=== PATIENT | female | born 1995 | race Caucasian/White ===

== ENCOUNTER 2019-05-12 08:02 | Outpatient (CLI) | payer OTHER, SELFPAY ==
--- NOTE | ~2019-05-12 | US_ITS ---
EXAMINATION: US venous doppler LE RT EXAM DATE: 05/12/2019 08:29 INDICATION: Right ankle edema, calf pain. TECHNIQUE: Multiple grayscale, color flow and Doppler images of the right lower extremity deep venous system were obtained and reviewed. There is no prior study for comparison. FINDINGS: The right common femoral, femoral and profunda veins demonstrate normal color flow, respira tory variation, augmentation and compressibility. Compressibility, color flow confirmed within the r ight popliteal, posterior tibial, peroneal, and greater saphenous veins. IMPRESSION: 1. No right lower extremity deep venous thrombosis. Reviewed, dictated and finalized at location A. 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
== END 2019-05-12 08:03 | disposition home or self-care (01) ==
PROVIDERS: PCP Family Medicine; Visit Provider Family Medicine
DX: M25.473 Effusion, unspecified ankle (principal); M79.669 Pain in unspecified lower leg
CPT/HCPCS: 93971

== ENCOUNTER 2021-09-15 10:01 | Outpatient (CLI) | payer OTHER, SELFPAY ==
--- NOTE | ~2021-09-15 | XR_ITS ---
EXAMINATION: XR hysterosalpingogram DATE: 09/15/2021 12:12 INDICATION: Infertility. TECHNIQUE: Fluoroscopy was performed by the radiologist during contrast infusion into the endometrial cavity of the uterus by the primary physician. Fluoroscopy exposure time was 0.1 minutes. The total number of images was 5. FINDINGS: The intrauterine cavity is normal in morphology. The fallopian tubes are normal in caliber. There is normal free intraperitoneal spillage of contrast bilaterally. IMPRESSION: 1. Normal hysterosalpingogram. Reviewed, dictated and finalized at location A.
[2021-09-15 11:01] LABS: Beta HCG Quantitative < 2.39 mIU/ML
== END 2021-09-15 10:02 | disposition home or self-care (01) ==
LOC: ANHIMG 10:04
PROVIDERS: PCP Family Medicine; Visit Provider Obstetrics & Gynecology Gynecology
DX: Z31.41 Encounter for fertility testing (principal)
CPT/HCPCS: 36415; 58340; 74740; 84702; Q9966

== ENCOUNTER → 2022-03-29 15:04 | Outpatient (CLI) | payer OTHER, SELFPAY ==
--- NOTE | ~2022-03-29 | US_ITS ---
Pelvic ultrasound. Clinical History: First trimester , uncertain dates Technique: Realtime transabdominal and transvaginal scanning of the pelvis was performed. Color flow Doppler and Doppler spectral analysis were performed. Findings: The uterus is anteverted, and contains an intrauterine gestation. [place]-rump length of 2.4 cm corresponds to an estimated gestational age of 9 weeks 1 day. heart rate is 178 bpm. The right ovary is not visualized. No significant right ovarian or adnexal mass is seen. The left ovary measures 3.5 x 3.9 x 3.2 cm. Small simple left ovarian cyst is seen. There is no evidence of free fluid in the cul de sac. Impression: Live intrauterine gestation with estimated gestational age of 9 weeks 1 day. heart rate is 178 bpm. Reviewed, dictated and finalized at [facility]. 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 Fe murray heart rate is 178 bpm.
== END ==
PROVIDERS: PCP Family Medicine; Visit Provider Obstetrics & Gynecology Gynecology
DX: Z36.87 Encounter for antenatal screening for uncertain dates (principal); Z3A.09 9 weeks gestation of pregnancy
CPT/HCPCS: 76801

== ENCOUNTER 2022-08-04 11:46 | Outpatient (CLI) | payer OTHER, SELFPAY ==
[2022-08-04 13:04] LABS: Hematocrit 35.7 % (37.0-47.0); Hemoglobin 12.1 g/dL (12.0-15.0)
[2022-08-04 13:29] LABS: Alanine Aminotransferase 17 U/L (6-35); Albumin Level 3.4 g/dL (3.5-5.1); Alkaline Phosphatase 87 U/L (38-126); Anion Gap 1 mmol/L (8-16); Aspartate Amino Transferase 19 U/L (14-36); Bilirubin,Total 0.3 mg/dL (0.2-1.3); Blood Urea Nitrogen 7 mg/dL (7-17); Calcium 8.6 mg/dL (8.4-10.2); Carbon Dioxide 26 mmol/L (22-30); Chloride 108 mmol/L (98-107); Estimated Glomerular Filt Rate > 60; Glucose 120 mg/dL (65-110); Glucose 1 Hour PP 50gm Dose 120 mg/dL; Potassium 3.8 mmol/L (3.4-5.0); Sodium 135 mmol/L (137-145)
[2022-08-04 14:01] LABS: HIV 1/2 Ab P24 Ag Result Negative (Negative)
[2022-08-05] MEDS: RHO(D) IMMUNE GLOBULIN 300 MCG/2 ML SYRINGE IM (09:45)
== END 2022-08-04 11:47 | disposition home or self-care (01) ==
PROVIDERS: PCP Family Medicine; Visit Provider Obstetrics & Gynecology Gynecology
DX: Z34.03 Encounter for supervision of normal first pregnancy, third trimester (principal); Z3A.00 Weeks of gestation of pregnancy not specified
CPT/HCPCS: 36415; 80053; 82306; 82947; 85014; 85018; 85461; 86703; 86850; 86900; 86901; 90384; 96372; G0432; J2790

== ENCOUNTER 2022-10-12 16:47 | Inpatient (IN) | payer OTHER, SELFPAY ==
[2022-10-12] VITALS (19 sets, daily range): BP systolic 111–135; BP diastolic 60–95; PULSE 84–107; BMI 38.2
[2022-10-12 18:08] LABS: Basophils Percent Auto 0.1 % (0.2-1.2); Eosinophils Absolute Auto 0.2 K/mm3 (0-0.3); Eosinophils Percent Auto 1.5 % (0-4.4); Hematocrit 34.5 % (37.0-47.0); Hemoglobin 10.9 g/dL (12.0-15.0); Immature Granulocyte Absolute 0.04 K/mm3 (0.00-0.031); Immature Granulocyte Percent A 0.4 % (0-0.5); Immature Platelet Fraction Pct 20.5 % (0.9-11.2); Lymphocytes Absolute Auto 2.18 K/mm3 (0.9-3.2); Lymphocytes Percent Auto 20.8 % (18.3-44.2); Mean Corpuscular HGB Conc 31.6 g/dl (32-36); Monocytes Absolute Auto 0.8 K/mm3 (0.1-0.6); Monocytes Percent Auto 7.5 % (2.6-8.5); Neutrophils Absolute Auto 7.3 K/mm3 (1.3-6.7); Neutrophils Percent Auto 69.7 % (45.5-73.1); Platelet Count Result 167 k/mm3 (150-375); Red Blood Count 4.54 M/mm3 (4.2-5.4); Red Cell Distribution Width 14.5 % (11.5-14.5); White Blood Count 10.5 K/mm3 (4.5-10.0)
[2022-10-12] MEDS: DINOPROSTONE 10 MG VAG INSERT VAGINAL (18:08)
--- NOTE | 2022-10-12 18:15 | LDADM ---
This patient, Stefanie Cortes, was admitted to Labor/Delivery/Recovery 106 on 10/12/22 at 16:47. Plans for labor, pain management and were discussed with patient. Patient/family oriented to hospital policies and general routines including ID bracelet, bed and alarms, visiting hours, pain management, procedures, bathroom and other care routines, personal items, smoking policy, room service/diet and guest tray routines, security routines, and visiting hours. Patient/Family are encouraged to report perceived risks to care and to ask questions if they do not understand what they are told or what they should do. See OBIX for further documentation.
[2022-10-12 18:17] LABS: Potassium 3.7 mmol/L (3.4-5.0)
[2022-10-12 18:27] LABS: Alanine Aminotransferase 17 U/L (6-35); Albumin Level 2.8 g/dL (3.5-5.1); Alkaline Phosphatase 172 U/L (38-126); Anion Gap 8 mmol/L (8-16); Aspartate Amino Transferase 30 U/L (14-36); Bilirubin,Total 0.3 mg/dL (0.2-1.3); Blood Urea Nitrogen 8 mg/dL (7-17); Calcium 8.5 mg/dL (8.4-10.2); Carbon Dioxide 21 mmol/L (22-30); Chloride 105 mmol/L (98-107); Estimated CRCL calculation 157 ml/min; Estimated Glomerular Filt Rate > 60; Glucose 120 mg/dL (65-110); Sodium 134 mmol/L (137-145); Uric Acid 3.6 mg/dL (2.5-7.5)
[2022-10-12 21:36] LABS: Amphetamine Screen Urine Negative (Negative); Barbiturate Screen Urine Negative (Negative); Benzodiazepines Screen Urine Negative (Negative); Cannabinoid Screen Urine Negative (Negative); Cocaine Screen Urine Negative (Negative); Methadone Screen Urine Negative (Negative); Opiate Screen Urine Negative (Negative); Phencyclidine Screen Urine Negative (Negative)
--- NOTE | 2022-10-12 21:42 | WPDANESEPP ---
Anes - Eval Pre Procedure Procedure: labor epidural Date/Time: 10/12/22 21:42 Surgeon: bo Preop Diagnosis: pain during labor Pre Op Diagnosis: Induction of Labor Patient Data Age: 27 Gender: F Height: 1.6 m Weight: 98 kg Last Vital Signs Pulse 100 10/12/22 21:30 BP 135/95 H 10/12/22 21:30 O2 Del Method Room Air 10/12/22 18:14 Allergies Allergy/AdvReac Type Severity Reaction Status Date / Time No Known Allergies Allergy Verified 08/04/22 11:18 Home Medications Medication Instructions Recorded Confirmed Type Lactobacillus acidophilus 1 1,000 mmu cells PO DAILY 05/07/19 10/12/22 History billion cell capsule (Probiotic Gold Acidophilus) omega-3 fatty acids 1,000 mg 1,000 mg PO DAILY 05/07/19 10/12/22 History capsule (Fish Oil Concentrate) vits 75-iron 28 mg-folic 1 pkg PO DAILY 05/07/19 10/12/22 History acid 800 mcg-omega-3 oral combo pack (One Daily ) tacrolimus 0.5 mg capsule, 0.5 mg/kg PO Q12H 05/07/19 10/12/22 History immediate-release tacrolimus 1 mg capsule, 2 mg PO Q12H 05/07/19 10/12/22 History immediate-release aspirin 81 mg tablet 81 mg PO DAILY 10/06/22 10/12/22 History cetirizine 10 mg tablet (Zyrtec) 10 mg PO DAILY 10/06/22 10/06/22 History cholecalciferol (vitamin D3) 50 50 mcg PO DAILY 10/06/22 10/06/22 History mcg (2,000 unit) tablet docusate sodium 100 mg capsule 100 mg PO DAILY 10/12/22 10/12/22 History (Colace) Laboratory Tests 10/12/22 10/12/22 10/12/22 17:56 17:56 20:58 WBC 10.5 H K/mm3 (4.5-10.0) RBC 4.54 M/mm3 (4.2-5.4) Hgb 10.9 L g/dL (12.0-15.0) Hct 34.5 L % (37.0-47.0) MCV 76.0 L fl (80-100) MCH 24.0 L pg (26-34) MCHC 31.6 L g/dl (32-36) RDW 14.5 % (11.5-14.5) Plt Count 167 k/mm3 (150-375) MPV TNP Immature Gran % (Auto) 0.4 % (0-0.5) Neut % (Auto) 69.7 % (45.5-73.1) Lymph % (Auto) 20.8 % (18.3-44.2) [place] % (Auto) 7.5 % (2.6-8.5) Eos % (Auto) 1.5 % (0-4.4) Baso % (Auto) 0.1 L % (0.2-1.2) Lymph # (Auto) 2.18 K/mm3 (0.9-3.2) [place] # (Auto) 0.8 H K/mm3 (0.1-0.6) Eos # (Auto) 0.2 K/mm3 (0-0.3) Baso # (Auto) 0.0 K/mm3 (0.0-0.1) Abs Immat Gran (auto) 0.04 H K/mm3 (0.00-0.031) Absolute Neuts (auto) 7.3 H K/mm3 (1.3-6.7) Absolute Nucleated RBC 0.0 K/mm3 (0.0-0.012) Nucleated RBC % 0.0 % (0.0-0.2) % Immature Plt Fraction 20.5 H % (0.9-11.2) Sodium 134 L mmol/L (137-145) Potassium 3.7 mmol/L (3.4-5.0) Chloride 105 mmol/L (98-107) Carbon Dioxide 21 L mmol/L (22-30) Anion Gap 8 mmol/L (8-16) BUN 8 mg/dL (7-17) Creatinine 0.50 L mg/dL (0.7-1.0) Estim Creat Clear Calc 157 ml/min Estimated GFR > 60 (59 - ) Glucose 120 H mg/dL (65-110) Uric Acid Cancelled 3.6 mg/dL (2.5-7.5) Calcium 8.5 mg/dL (8.4-10.2) Total Bilirubin 0.3 mg/dL (0.2-1.3) AST 30 U/L (14-36) ALT 17 U/L (6-35) Alkaline Phosphatase 172 H U/L (38-126) Total Protein 6.0 L g/dL (6.3-8.2) Albumin 2.8 L g/dL (3.5-5.1) Urine Opiates Screen Negative (Negative) Urine Methadone Screen Negative (Negative) Ur Barbiturates Screen Negative (Negative) Ur Phencyclidine Scrn Negative (Negative) Ur Amphetamine Screen Negative (Negative) U Benzodiazepines Scrn Negative (Negative) Urine Cocaine Screen Negative (Negative) U Cannabinoids Screen Negative (Negative) RPR Pending Blood Type O Negative Antibody Screen Positive Antibody [place]
[2022-10-13] VITALS (239 sets, daily range): BP systolic 101–144; BP diastolic 55–96; PULSE 73–136; TEMP 36.2–37.3; O2SAT 95–100
[2022-10-13] MEDS: LACTATED RINGERS 1,000 ML 125 ML IV CONT ×2 (06:40→09:30)
[2022-10-13] MEDS: OXYTOCIN 30 UNITS/NS 500 ML 30 UNITS/500 ML BAG 6 UNITS IV CONT (06:40)
--- NOTE | 2022-10-13 07:45 | WPDOBADMIT ---
Obstetrics - Admit Note Admission Note: record reviewed. No pertinent additions to the history and/or any subsequent changes in the physical findings that are not consistent with the expected course of the were found. Additions to the history and/or subsequent changes in the physical findings follow. Here for MIL at 37 wks for preeclampsia. Cervadil overnight. Cervix now 1-2/70/-2 anterior and soft, AROM with clear fluid. FHTs cat. I. Pitocin as needed.
[2022-10-13 15:51] LABS: Rapid Plasma Reagin Non-Reactive (NonReactive)
[2022-10-13] MEDS: CALCIUM CARBONATE (TUMS) 500 MG (200 MG ELEMENTAL) PO (16:19)
[2022-10-13] MEDS: ONDANSETRON INJ 4 MG/2 ML VIAL IV PUSH (21:00)
[2022-10-14] VITALS (27 sets, daily range): BP systolic 104–141; BP diastolic 59–93; PULSE 91–139; RESP 16–18; TEMP 36.2–38.3; O2SAT 96–98
[2022-10-14] MEDS: ACETAMINOPHEN 500 MG TABLET 1000 MG (00:17)
[2022-10-14] MEDS: LACTATED RINGERS 1,000 ML 125 ML IV CONT (00:24)
[2022-10-14] MEDS: AMPICILLIN 2 GM/NS 100 ML 2 GM/100 ML BAG IVPB (01:07)
[2022-10-14] MEDS: GENTAMICIN SULFATE INJ 355 MG in DEXTROSE 5% 100 ML 108.88 MG IVPB (01:39)
[2022-10-14] MEDS: OXYTOCIN 30 UNITS/NS 500 ML 30 UNITS/500 ML BAG 6 UNITS IV CONT (03:31)
[2022-10-14] MEDS: AMPICILLIN 1 GM/NS 50 ML 1 GM/50 ML BAG IVPB (05:02)
--- NOTE | 2022-10-14 05:47 | PM.OBPRVD ---
OB - Delivery Note Procedure Delivery date: 10/14/22 Procedure: Events: Preeclampsia w/o severe features Induction method: AROM, Per Pitocin Protocol and Per Cervidil Protocol Delivery monitor: External FHT and Internal Uterine Route of delivery: Laceration Description: Periurethral (supraurethral) and Perineal - 2nd Degree Delivery repair: vicryl (3-0) Specimen: Yes (placenta) Quantitative Blood Loss (ml): 300 Anesthesia type: Epidural Disposition: Floor [place] Baby Date of : 10/14/22 Weeks of gestation at delivery: 37 gender: Female presentation: vertex position: Right Occiput Anterior Placenta delivery description: Spontaneous Cord Vessel Description: 3 Vessels, Nuchal Cord and Delayed Cord Clamping score one minute: 9 score five minutes: 10
--- NOTE | 2022-10-14 05:49 | PM.OBDSVD ---
DS: Admitting Diagnosis Discharge Date 10/16/22 Admitting Diagnosis IUP 37 wks for MIL Preeclampsia DS: Discharge Diagnosis Discharge Diagnosis (1) Preeclampsia: Code(s): O14.90 - Unspecified pre-eclampsia, unspecified trimester Status: Acute (2) (normal spontaneous vaginal delivery): Code(s): O80 - Encounter for full-term uncomplicated delivery Status: Acute (3) Liver transplant recipient: Code(s): Z94.4 - Liver transplant status Status: Acute OB - DS: Summary OB Procedures : NST, PIH Mgmt and Ultrasound OB Procedures Intrapartum: Spontaneous Vag Delivery OB Procedures: : None Peripartum Data Delivery Method: Natural Vaginal Laceration Description: Periurethral (supraurethral) and Perineal - 2nd Degree complications: none Status at Discharge Functional status at discharge: independent ambulation Overall status at discharge: patient is progressing back to baseline Time Spent with Patient Time attestation: Total time spent providing and/or coordinating discharge services: DS: Data Data Completed and Pending Pending studies at discharge: Pending at discharge 10/14/22 05:23 Surgical [PTH] Routine Labs on day of discharge: Labs from last 24 hours 10/12/22 17:56 RPR Non-reactive Discharge Plan Discharge Attending physician on discharge: Stephany Lott Discharging Clinician: Stephany Lott Anticipated Discharge Date/Time: 10/16/22 05:50 Patient Disposition: Home, Self-Care Activity: may shower and pelvic rest Diet: regular Patient Instructions: Antibiotic Form Stand Alone Forms: General Discharge Information Follow-up/Referrals: Stephany Lott MD [Physician] - 1 Week (and 6 wk) Discharge Medications: Continued tacrolimus 1 mg capsule 2 mg PO Q12H tacrolimus 0.5 mg capsule 0.5 mg/kg PO Q12H Rx Instructions: take 1 cap by mouth in addition to the 2 caps of 1mg to equal 2.5mg twice daily Discontinued Adult Low Dose Aspirin 81 mg Tablet 81 mg PO DAILY No Action Probiotic Gold Acidophilus 1 billion cell capsule 1,000 mmu cells PO DAILY Rx Instructions: administer with a meal One Daily 28 mg iron- 800 mcg combo pack 1 pkg PO DAILY omega-3 fatty acids [Fish Oil Concentrate] 1,000 mg capsule 1,000 mg PO DAILY cetirizine [Zyrtec] 10 mg Tablet 10 mg PO DAILY cholecalciferol (vitamin D3) 50 mcg (2,000 unit) Tablet 50 mcg PO DAILY docusate sodium [Colace] 100 mg Capsule 100 mg PO DAILY Date of admission: 10/12/22 16:47 Primary Care Provider: Dimitri Almonte Admitting Provider: Stephany Lott Attending physician on admission: Stephany Lott Condition: Stable
[2022-10-14] MEDS: OXYTOCIN 30 UNITS/NS 500 ML 30 UNITS/500 ML BAG 125 UNITS IV CONT (05:56)
[2022-10-14] MEDS: WITCH HAZEL 40 PADS 1 PAD TOPICAL (07:50)
[2022-10-14] MEDS: BENZOCAINE 20% AER SPR (*SP) 56 GM CAN 1 SPRAY TOPICAL (07:50)
--- NOTE | 2022-10-14 08:10 | OBPPTRN ---
Patient transferred to post room # via wheelchair. Support person present. Oriented to unit, room, information board, rooming in, admission packet and security measures. Patient verbalizes understanding.
[2022-10-15 05:29] LABS: Hematocrit 30.5 % (37.0-47.0); Hemoglobin 9.5 g/dL (12.0-15.0)
--- NOTE | 2022-10-15 07:18 | P.PNOB_ITS ---
OB - PN: Subj Subjective Date/time seen: 10/15/22 07:18 Patient comments: no complaints, pain well controlled and tolerating diet [place] feeding status: exclusively breast feeding Narrative: patient doing well this AM. No complaints. Pain is well controlled. She reports minimal bleeding. She is ambulating and voiding without difficulty. She is tolerating PO. She denies N/V, fever, chills. OB - PN: Obj Data Labs 10/15/22 04:49 10/12/22 17:56 Labs: Laboratory Results - last 24 hr 10/15/22 04:49 Hgb 9.5 L Hct 30.5 L Blood Type O Negative Antibody Screen TNP OB - PN A/P Plan day: 1 Plan: routine care Comments: patient doing well H/H , will supplement with iron BP mild range, continue to monitor continue routine care Time Spent With Patient Time: Total time spent is greater than 50% in coordination of care (as documented) at patient's floor/unit and/or counseling patient: Time with patient: less than 15 minutes Review of Systems Review of Systems: All systems reviewed & are unremarkable except as noted in HPI and below Exam Const: General: comfortable and no acute distress Resp: Effort & Inspection: normal respiratory effort Cardio: Rate: regular rate GI: GI Palp: Yes Soft to palpation and No Tenderness to palpation present (GI) Auscultation: normal bowel sounds Other: fundus firm and below umbilicus. Psych: Affect: normal affect
[2022-10-15 08:15] VITALS: BP 122/82; PULSE 92; RESP 20; TEMP 36.3; O2SAT 100
[2022-10-15] MEDS: POLYSACCHARIDE IRON COMPLEX 150 MG CAPSULE PO ×2 (08:41→16:27)
[2022-10-15] MEDS: DOCUSATE SODIUM 100 MG CAPSULE PO ×2 (08:41→16:27)
[2022-10-15 16:00] VITALS: BP 121/84; PULSE 85; RESP 18; TEMP 36.8; O2SAT 98
[2022-10-15] MEDS: RHO(D) IMMUNE GLOBULIN 300 MCG/2 ML SYRINGE IM (16:28)
[2022-10-15 20:00] VITALS: BP 117/81; PULSE 98; RESP 18; TEMP 36.4; O2SAT 99
[2022-10-16] VITALS: BP 132/74
[2022-10-16 04:00] VITALS: BP 127/79
[2022-10-16] MEDS: POLYSACCHARIDE IRON COMPLEX 150 MG CAPSULE PO ×2 (08:13→16:44)
[2022-10-16 08:25] VITALS: BP 119/89; PULSE 91; RESP 16; TEMP 37.1; O2SAT 98
--- NOTE | 2022-10-16 08:30 | PC.NURSE ---
Patient refused morning vitamin and TUMS ordered. Patient states that she is taking her vitamins brought from home and doesnt need the TUMS at this time.
--- NOTE | 2022-10-16 09:38 | PM.OBPNVD ---
OB - PN: Subj Subjective Date/time seen: 10/16/22 09:38 Patient comments: no complaints and other ( no PIH sx) baby status: doing well feeding status: breast and bottle feeding OB - PN: Obj Data Labs 10/15/22 04:49 10/12/22 17:56 Labs: Laboratory Results - last 24 hr 10/15/22 04:49 Blood Type O Negative Antibody Screen TNP Screen Negative Baby's Blood Type O pos Baby's ZACHARIAH Negative Doses of RhIg Required 1 OB - PN A/P Assessment and Plan (1) Preeclampsia: Code(s): O14.90 - Unspecified pre-eclampsia, unspecified trimester Status: Acute Assessment and Plan: blood pressures in the normal range, good diuresis, no symptoms Plan day: 2 Plan: routine care, discharge home, follow up 6 weeks ( and 1 week for a blood pressure check) and other ( plans condoms for control) Time Spent With Patient Time: Total time spent is greater than 50% in coordination of care (as documented) at patient's floor/unit and/or counseling patient: Exam : Bimanual exam- vagina & uterus: other (Uterus firm, nt @U)
--- NOTE | 2022-10-16 14:05 | PC.NURSE ---
[id number] Re-introductions were made as we previously met during class. Mother led conversation with her experience with feeding baby so far. Mother works well with her with encouragement. Reviewed working with , supporting breast and how to protect the nipples with an optimal deep latch, good positioning, and good hand washing. Encouraged the benefits of skin to skin, responding to feeding cues, frequencies of feeding 8-12 times in 24 hours (approximately 2-3 hours), duration of feedings, milk production, intake/output feeding sheet and signs of adequate intake encouraging swallowing at the breast. Reviewed positioning and alignment, supporting breast, off-centered (asymmetrical latch) and leading with the chin with big, open, wide gape. Infant latched optimally to the right breast in cross cradle position. Education given to mother of how to visualize suck/swallow and none were seen at this time. Reviewed the production of milk and we anticipate supplementation until the full milk has transitioned. has an elevated bilirubin and 10% weight loss that required a Doctor's order to supplement with formula. We reviewed paced bottle feeding as well and parents are practicing the method when supplementing. was able to maintain latch without discomfort to mother. Nipple care reviewed with optimal latch, good positioning and using clean hands when feeding her infant and touching her breast. Resources used to facilitate learning were used from the mom and baby guide. Parents voiced understanding of the education shared, to call for assistance if the infant does not latch or if there is discomfort with . Reported to the Primary RN.
[2022-10-16 18:30] VITALS: BP 133/90; PULSE 95; RESP 16; TEMP 36.9; O2SAT 98
[2022-10-17 08:27] VITALS: BP 121/69; PULSE 94; RESP 18; TEMP 36.8
== END 2022-10-16 19:35 | disposition home or self-care (01) | DRG 806 ==
LOC: ANHLDR 10-14 05:56 → ANHOB2 10-14 08:13
PROVIDERS: Admitting Provider Obstetrics & Gynecology Gynecology; PCP Family Medicine; Visit Provider Obstetrics & Gynecology Gynecology
DX: O75.2 Pyrexia during labor, not elsewhere classified (principal); Z94.4 Liver transplant status; Z37.0 Single live birth; O14.04 Mild to moderate pre-eclampsia, complicating childbirth; O70.1 Second degree perineal laceration during delivery; O69.81X0 Labor and delivery complicated by cord around neck, without compression, not applicable or unspecified; Z3A.37 37 weeks gestation of pregnancy; O43.123 Velamentous insertion of umbilical cord, third trimester
CPT/HCPCS: 36415; 80053; 80307; 84550; 85014; 85018; 85025; 85055; 85461; 86592; 86850; 86880; 86900; 86901; 88307; 90384; A9270; J0290; J1580; J2405; J2590; J2790; J2795; J7120

== ENCOUNTER 2024-12-12 12:44 | Outpatient (RCR) | payer OTHER, SELFPAY ==
[2024-12-12 14:10] LABS: Hematocrit 36.6 % (37.0-47.0); Hemoglobin 12.0 g/dL (12.0-15.0)
[2024-12-12 14:38] LABS: Glucose 1 Hour PP 50gm Dose 102 mg/dL
[2024-12-12 15:00] LABS: Syphilis IgG/IgM Antibody Non-Reactive (Nonreactive)
[2024-12-12 15:13] LABS: HIV 1/2 Ab P24 Ag Result Negative (Negative)
[2024-12-13] MEDS: RHO(D) IMMUNE GLOBULIN 300 MCG/2 ML SYRINGE IM (17:51)
== END 2025-03-12 23:59 | disposition home or self-care (01) ==
LOC: ANHLAB 12:44
PROVIDERS: PCP Family Medicine; Visit Provider Obstetrics & Gynecology
DX: Z11.4 Encounter for screening for human immunodeficiency virus [HIV] (principal); Z11.3 Encounter for screening for infections with a predominantly sexual mode of transmission; Z29.13 Encounter for prophylactic Rho(D) immune globulin; O36.0190 Maternal care for anti-D [Rh] antibodies, unspecified trimester, not applicable or unspecified; Z3A.00 Weeks of gestation of pregnancy not specified
CPT/HCPCS: 36415; 82947; 85014; 85018; 85461; 86593; 86703; 86850; 86900; 86901; 90384; 96372; G0432; J2790

== ENCOUNTER 2025-03-16 05:02 | Inpatient (IN) | payer OTHER, SELFPAY ==
[2025-03-16] VITALS (177 sets, daily range): BP systolic 86–135; BP diastolic 40–95; PULSE 29–163; RESP 16; TEMP 36.1–36.6; O2SAT 84–100; BMI 36.7
--- OUTSIDE RECORDS SUMMARY | 2025-03-16 05:06 | XMS_ITS | Continuity of Care Document ---
Author Organization [facility], [facility] [address] [place] [address] Care Team Providers Care Security Operations Manager Name Role Phone MADRID, BRODERICK Primary Care Provider Assessment No assessment recorded. Plan of Treatment Reminders Order Date Submit Date Provider Last Modified By Organization Details Last Modified Time Details Appointments INDUCTION 2024 05:00A Elieser DELCID MD Not available Not available Not available Lab None recorded. Referral None recorded. Procedures None recorded. Surgeries None recorded. Imaging None recorded. Medication Orders None recorded. Patient TargetsNo targets recorded. Patient InstructionsNo instructions recorded. Reason for Referral None Reported. Results Created Date Observation Date Name Description Value Unit Range Abnormal Flag Note LastModifiedBy Organization Detail LastModifiedTime 09/09/19 25 09/08/2024 [UNIT Y] BLAINE ER SCREE N sickle cell disease/beta -thalassemia /hemoglobino pathies carrier screen NEGATI VE normal Not Available [facility] [address], [place], [address], 09/08/2024 22:51:39 09/09/19 25 09/08/2024 [UNIT Y] BLAINE ER SCREE N alpha-thalas semia carrier screen NEGATI VE normal Not Available [facility] [address], [place], [address], 09/08/2024 22:51:39 09/09/19 25 09/08/2024 [UNIT Y] BLAINE ER SCREE N cystic fibrosis carrier screen NEGATI VE normal Not Available [facility] [address], [place], [address], 09/08/2024 22:51:39 09/09/19 25 09/08/2024 [UNIT Y] BLAINE [place] spinal muscular atrophy carrier screen NEGATI VE 3 SMN1 copies , SNP not presen t normal Not Available [facility] [address], [place], [address], 09/08/2024 22:51:39 09/09/19 25 09/08/2024 [UNIT Y] BLAINE [place] for detailed report, see pdf See PDF normal Not Available [facility] [address], [place], [address], 09/08/2024 22:51:39 09/13/19 25 09/12/2024 [UNIT Y] ANEUP LOIDY NIPT redraw requested? No normal Not Available [facility] [address], [place], [address], 09/12/2024 00:04:22 09/13/19 25 09/12/2024 [UNIT Y] ANEUP LOIDY NIPT fraction 9.1% normal Not Available [facility] [address], [place], [address], 09/12/2024 00:04:22 09/13/19 25 09/12/2024 [UNIT Y] ANEUP LOIDY NIPT 22Q11.2 microdeletio n LOW RISK <1 in 10,000 normal Not Available [facility] [address], [place], [address], 09/12/2024 00:04:22 09/13/19 25 09/12/2024 [UNIT Y] ANEUP LOIDY NIPT nipt comment abnormal NIPT was unabl e to deter mine sex. In addit ion, monos ignacio X and sex chrom osome aneup loidy canno t be exclu ded for this sampl e. Prena murray diagn osis via [facility] or [facility] sis can be consi dered for monos ignacio X and sex chrom osome aneup loidy . Not Available [facility] [address], [place], [address], 09/12/2024 00:04:22 09/13/19 25 09/12/2024 [UNIT Y] ANEUP LOIDY NIPT sex chromosome aneuploidy NO CALL abnormal Not Available [facility] [address], [place], [address], 09/12/2024 00:04:22 09/13/19 25 09/12/2024 [UNIT Y] ANEUP LOIDY NIPT monosomy X NO CALL abnormal Not Available [facility] [address], [place], [address], 09/12/2024 00:04:22 09/13/19 25 09/12/2024 [UNIT Y] ANEUP LOIDY NIPT trisomy 13 LOW RISK <1 in 10,000 normal Not Available [facility] [address], [place], [address], 09/12/2024 00:04:22 09/13/19 25 09/12/2024 [UNIT Y] ANEUP LOIDY NIPT trisomy 18 LOW RISK <1 in 10,000 normal Not Available [facility] [address], [place], [address], 09/12/2024 00:04:22 09/13/19 25 09/12/2024 [UNIT Y] ANEUP LOIDY NIPT trisomy 21 LOW RISK <1 in 10,000 normal Not Available [facility] [address], [place], [address], 09/12/2024 00:04:22 09/13/19 25 09/12/2024 [UNIT Y] ANEUP LOIDY NIPT sex N/A abnormal Not Available [facility] [address], [place], [address], 09/12/2024 00:04:22 09/13/19 25 09/12/2024 [UNIT Y] ANEUP LOIDY NIPT gestation SINGLE TON normal Not Available [facility] [address], [place], [address], 09/12/2024 00:04:22 09/13/19 25 09/12/2024 [UNIT Y] ANEUP LOIDY NIPT for detailed report, see pdf See PDF normal Not Available [facility] [address], [place], [address], 09/12/2024 00:04:22 09/02/19 25 09/01/2024 CBC W/DIF F WBC 11.5 10'3/ uL 3.5-10 .5 high Not Available [facility] (Lab) [address] , [place], [address], 09/02/2024 13:48:30 09/02/19 25 09/01/2024 CBC W/DIF F RBC 4.99 10'6/ uL (based on docume nted legal sex) 3.80-5 .20 Not Available [facility] (Lab) [address] , [place], [address], 09/02/2024 13:48:30 09/02/19 25 09/01/2024 CBC W/DIF F HGB 14.4 g/dL (based on docume nted legal sex) 11.6-1 5.4 Not Available [facility] (Lab) [address] , [place], [address], 09/02/2024 13:48:30 09/02/19 25 09/01/2024 CBC W/DIF F HCT 42.5 % (based on docume nted legal sex) 34.0-4 5.0 Not Available [facility] (Lab) [address], [place], [address], 09/02/2024 13:48:30 09/02/19 25 09/01/2024 CBC W/DIF F MCV 85.2 fL 80.0-9 9.0 Not Available [facility] (Lab) [address] [facility], [place], [address], 09/02/2024 13:48:30 09/02/19 25 09/01/2024 CBC W/DIF F MCH 28.9 pg 27.0-3 4.0 Not Available [facility] (Lab) [address] [facility], [place], [address], 09/02/2024 13:48:30 09/02/19 25 09/01/2024 CBC W/DIF F MCHC 33.9 g/dL 32.0-3 5.5 Not Available [facility] (Lab) [address] [facility], [place], [address], 09/02/2024 13:48:30 09/02/19 25 09/01/2024 CBC W/DIF F RDW 13.2 % 11.0-1 5.0 Not Available [facility] (Lab) [address] [facility], [place], [address], 09/02/2024 13:48:30 09/02/19 25 09/01/2024 CBC W/DIF F plt 208 10'3/ uL 150-40 0 Not Available [facility] (Lab) [address] [facility], [place], [address], 09/02/2024 13:48:30 09/02/19 25 09/01/2024 CBC W/DIF F MPV 12.3 fL 8.8-12 .1 high Not Available [facility] (Lab) [address] [facility], [place], [address], 09/02/2024 13:48:30 09/02/19 25 09/01/2024 CBC W/DIF F NRBC's 0.0 % 0.0 Not Available [facility] (Lab) [address] [place], [address], 09/02/2024 13:48:30 09/02/19 25 09/01/2024 CBC W/DIF F absolute NRBCs 0.0 10'3/ uL no refere nce range establ ished Not Available [facility] (Lab) [address] [facility], [place], [address], 09/02/2024 13:48:30 09/02/19 25 09/01/2024 CBC W/DIF F neutrophils 70.5 % 34.0-7 3.0 Not Available [facility] (Lab) [address] [facility], [place], [address], 09/02/2024 13:48:30 09/02/19 25 09/01/2024 CBC W/DIF F lymphocytes 21.9 % 15.0-5 0.0 Not Available [facility] (Lab) [address] [facility], [place], [address], 09/02/2024 13:48:30 09/02/19 25 09/01/2024 CBC W/DIF F monocytes 5.8 % 1.0-15 .0 Not Available [facility] (Lab) [address] [facility], [place], [address], 09/02/2024 13:48:30 09/02/19 25 09/01/2024 CBC W/DIF F eosinophils 1.3 % 0.0-8. 0 Not Available [facility] (Lab) [address] [place], [address], 09/02/2024 13:48:30 09/02/19 25 09/01/2024 CBC W/DIF F basophils 0.2 % 0.0-2. 0 Not Available [facility] (Lab) [address] [place], [address], 09/02/2024 13:48:30 09/02/19 25 09/01/2024 CBC W/DIF F immature granulocytes 0.3 % no define d refere nce range Immat ure Granu locyt es (IG) repre sents autom ated enume ratio n of Metam yeloc ytes, Myelo cytes and Promy elocy kim when IG is < 5%. Blast s are not inclu ded in IG and repor edouard separ ately if prese nt. Not Available [facility] (Lab) [address] [facility], [place], [address], 09/02/2024 13:48:30 09/02/19 25 09/01/2024 CBC W/DIF F absolute neutrophils 8.1 10'3/ uL 1.5-8. 0 high Not Available [facility] (Lab) [address] [facility], [place], [address], 09/02/2024 13:48:30 09/02/19 25 09/01/2024 CBC W/DIF F absolute lymphocytes 2.5 10'3/ uL 1.0-4. 0 Not Available [facility] (Lab) [address] [facility], [place], [address], 09/02/2024 13:48:30 09/02/19 25 09/01/2024 CBC W/DIF F absolute monocytes 0.7 10'3/ uL 0.2-1. 0 Not Available [facility] (Lab) [address] [facility], [place], [address], 09/02/2024 13:48:30 09/02/19 25 09/01/2024 CBC W/DIF F absolute eosinophils 0.2 10'3/ uL 0.0-0. 6 Not Available [facility] (Lab) [address] [facility], [place], [address], 09/02/2024 13:48:30 09/02/19 25 09/01/2024 CBC W/DIF F absolute basophils 0.0 10'3/ uL 0.0-0. 3 Not Available [facility] (Lab) [address] [facility], [place], [address], 09/02/2024 13:48:30 09/02/19 25 09/01/2024 CBC W/DIF F absolute immature granulocytes 0.0 10'3/ uL 0.00-0 .10 Refer ence range s for nonbi nary/ inter sex or unspe cifie d gende r patie nts have not been estab lishe d. Felisha zuriat refer to the guidoo wing table for range s estab lishe d for cisge nder patie nts and evalu ate in the clini john miracle xt of the indiv idual patie nt: https ://la benand book. nm.or g/gen derx Not Available [facility] (Lab) [address] [facility], [place], [address], 09/02/2024 13:48:30 09/02/19 25 09/01/2024 TYPE/ RH/SC REEN ABO/Rh type O NEG Not Available [facility] (Lab) [address] [facility], [place], [address], 09/02/2024 13:48:30 09/02/19 25 09/01/2024 TYPE/ RH/SC REEN antibody screen NEG Not Available [facility] (Lab) [address] [facility], [place], [address], 09/02/2024 13:48:30 09/02/19 25 09/01/2024 TYPE/ RH/SC REEN exp date 2024 23:59 Not Available [facility] (Lab) [address] [place], [address], 09/02/2024 13:48:30 09/02/1909/01/2024 HIV 1/2 ANTIG EN/AN TIBOD Y, REFLE X CONFI RMATI ON HIV antigen/anti body Nonrea ctive nonrea ctive HIV-1 antig en and HIV-1 /HIV- 2 antib odies were not detec edouard. No labor atory evide nce of HIV infec tion. Not Available [facility] (Lab) [address] [facility], [place], [address], 09/02/2024 13:48:31 09/02/19 25 09/01/2024 HEPAT ITIS B SURFA CE ANTIG EN hepatitis B surface antigen Non-re active non-re active This assay was perfo rmed using [employer] ratio n reage nts and test kits. Value s obtai blaine with other assay metho ds or kits canno t be used inter stover eably . Not Available [facility] (Lab) [address] [facility], [place], [address], 09/02/2024 13:48:31 09/02/19 25 09/01/2024 HEPAT ITIS C ANTIB MARV SCREE N, REFLE X TO CONFI RMATI ON hepatitis C antibody Non-re active non-re active Antib odies to HCV Not Detec edouard, does not exclu de the possi bilit y of expos ure to HCV. Not Available [facility] (Lab) [address] [facility], [place], [address], 09/02/2024 13:48:31 09/02/19 25 09/01/2024 RUBEL LA IGG ANTIB MARV, QUANT rubella antibodies, IgG Reacti ve reacti ve Not Available [facility] (Lab) [address] [place], [address], 09/02/2024 13:48:32 09/02/19 25 09/01/2024 RUBEL LA IGG ANTIB MRAV, QUANT rubella antibodies, IgG quant 12.2 IU/mL >=10 Non-r eacti ve (Non- Immun e) <10 IU/mL React nkechi (Immu ne) > or = 10 IU/mL Not Available [facility] (Lab) [address] [place], [address], 09/02/2024 13:48:32 09/02/19 25 09/01/2024 RPR SCREE N, REFLE X TITER /CONF IRMAT ION RPR qualitative Nonrea ctive nonrea ctive Not Available [facility] (Lab) [address] [place], [address], 09/02/2024 13:48:32 09/02/19 25 09/01/2024 HEMOG LOBIN A1C hemoglobin A1C 4.6 % 4.0-5. 6 The Ameri can [employer] kim [employer] iatio n recom mends that a prima ry goal of thera py shoul d be a HBA1C of < 7% and that physi cians shoul d reeva luate the treat ment regim en in patie nts with HBA1C value s consi stent ly > 8%. <5.7% Sara l 5.7 - 6.4% Incre ased risk for diabe kim >=6.5 % Diagn ostic of diabe kim <7.0% Goal of thera py >8.0% Actio n sugge sted Not Available [facility] (Lab) [address], [place], [address], 09/02/2024 13:48:32 09/02/1909/01/2024 CULTU RE: URINE result report SEE RESULT S BELOW Test: Cultu re: Urine Speci men Sourc e: Urine Voide d Speci men Type: Urine Speci men Date: 025 1116 Resul t Date: 2024 Resul t Statu s: Final resul t Abnor mal: No Resul ting Lab: [facility] [address] [facility] [address] Tel: CULTU RE ----- ----- ----- --- No growt h in 1 day (dete ction level of 10,00 0 colon ies / ml.) Not Available [facility] (Lab) [address], [place], [address], 09/02/2024 21:37:00 09/02/19 25 09/01/2024 drug scree n, urine Amphetamines : negati ve Not Available [facility] [address], [place], [address], 09/01/2024 11:12:32 09/02/19 25 09/01/2024 drug scree n, urine Cannabinoids : negati ve Not Available [facility] [address], [place], [address], 09/01/2024 11:12:32 09/02/19 25 09/01/2024 drug scree n, urine Cocaine: negati ve Not Available [facility] [address], [place], [address], 09/01/2024 11:12:32 09/02/19 25 09/01/2024 drug scree n, urine Opiates: negati ve Not Available [facility] [address], [place], [address], 09/01/2024 11:12:32 09/02/19 25 09/01/2024 drug scree n, urine Phenocyclidi ne: negati ve Not Available [facility] [address], [place], [address], 09/01/2024 11:12:32 09/02/19 25 09/01/2024 drug scree n, urine Barbiturates : negati ve Not Available [facility] [address], [place], [address], 09/01/2024 11:12:32 09/02/19 25 09/01/2024 drug scree n, urine Benzodiazepi loan: negati ve Not Available [facility] [address], [place], [address], 09/01/2024 11:12:32 09/02/19 25 09/01/2024 drug scree n, urine Ethanol: negati ve Not Available [facility] [address], [place], [address], 09/01/2024 11:12:32 09/02/19 25 09/01/2024 drug scree n, urine Hallucinogen s: negati ve Not Available [facility] [address], [place], [address], 09/01/2024 11:12:32 09/02/19 25 09/01/2024 drug scree n, urine Inhalants: negati ve Not Available [facility] [address], [place], [address], 09/01/2024 11:12:32 09/02/19 25 09/01/2024 drug scree n, urine Anabolic Steroids: negati ve Not Available [facility] [address], [place], [address], 09/01/2024 11:12:32 09/02/19 25 09/01/2024 drug scree n, urine Other: negati ve Not Available [facility] [address], [place], [address], 09/01/2024 11:12:32 02/11/20 25 02/10/2025 CULTU RE: GROUP B STREP SCREE N, REFLE X SUSCE PTIBI LITY result report SEE RESULT S BELOW abnormal Test: Cultu re: Group B Strep , Refle x Susce ptibi lity ([facility]/ [facility] ) Speci men Sourc e: Vagin a/Rec anthony Speci men Type: Vagin al/Re ctal Speci men Date: 02/10 1447 Resul t Date: 02/14 1511 Resul t Statu s: Final resul t Abnor mal: Yes Resul ting Lab: [facility] [address] [facility] [address] Tel: CULTU RE ----- ----- ----- --- Posit nkechi for Strep tococ cus agala ctiae (Grou p B) (Abno rmal) Clind amyci n susce ptibl e, eryth romyc in resis tant. The clind amyci n induc tion test (D-t est) is negat nkechi, there fore clind amyci n shoul d be clini natasha effec tive again st this isola te. Not Available [facility] (Lab) [address], [place], [address], 02/14/2025 16:16:12 09/02/19 25 09/01/2024 US, obste tric, nucha l trans lucen cy No observ ation record ed. [facility] [address], [place], [address], 09/01/2024 18:48:24 09/02/19 25 09/01/2024 US, obste tric, nucha l trans lucen cy No observ ation record ed. [email or web address] [address], [place], [address], 09/02/2024 11:29:46 10/29/19 25 10/28/2024 US, obste tric, 2nd or 3rd trime ster No observ ation record ed. [facility] [address], [place], [address], 10/28/2024 18:24:58 10/29/19 25 10/28/2024 US, obste tric, 2nd or 3rd trime ster No observ ation record ed. [email or web address] [address], [place], [address], 10/28/2024 22:59:36 01/14/20 25 01/13/2025 US, obste tric, follo w-up No observ ation record ed. ELIE [address], [place], [address], 01/16/2025 19:25:04 01/14/20 25 01/13/2025 US, obste tric, follo w-up No observ ation record ed. [email or web address] [facility] [address], [place], [address], 01/13/2025 17:54:59 Result Notes None recorded. Problems Name Problem SNOMED Code Status Onset Date Resolution Date Notes Provider Name and Address Organization Details Recorded Time 07311310 Active 2024 ISRAEL Nettles bryant, [facility] 10:27:09 Rheumatoi d arthritis 54138526 Active 2024 previously on Juliette DELCID MD [address], [place], [address], [facility] 5 16:24:19 Problem Notes None recorded. Procedures Surgical History Date Name Laterality Status Provider Name and Address Organization Details Recorded Time 03/26/19 22 Date of Last Pap Smear completed [facility] 08/11/2024 16:48:19 10/02/18 97 transplantation of liver completed Deena [facility] 08/11/2024 16:51:12 Imaging Results None recorded. Procedure Notes None recorded. Medical Equipment None Reported. Allergies No known drug allergies Medications Name Sig Start Date Stop Date Status Note LastModified by Organization Details LastModified Time Zyrtec 10 mg tablet active Not Available Not Available No t Available prednisolon e acetate 1 % eye drops,suspe nsion INSTILL 1 DROP RIGHT EYE 3 TIMES A DAY 02/16 completed Not Available Not Available Not Available clotrimazol e-betametha sone 1 %-0.05 % topical cream APPLY TO AFFECTED AREA TWICE A DAY X2 WEEKS IN THE MORNING & EVENING (AND SURROUNDI NG AREAS) 11/18 completed Not Available Not Available Not Available cephalexin 500 mg tablet TAKE 1 TABLET BY MOUTH EVERY 6 HOURS 11/18 completed Not Available Not Available Not Available clobetasol 0.05 % scalp solution APPLY TO SCALP 1-2 TIMES DAILY FOR UP TO 2 WEEKS. 02/16 completed Not Available Not Available Not Available tacrolimus 1 mg capsule, immediate-r elease 11/18 completed Not Available Not Available Not Available tacrolimus 0.5 mg capsule, immediate-r elease 11/18 completed Not Available Not Available Not Available Vitamin D3 active Not Available Not Av ailable Not Available active Not Available Not Avai lable Not Available [place] 3 Fish Oil 08/11 completed Not Available Not Available Not Available Humira 08/11 completed Not Available Not Available Not Available Probiotic active Not Available Not Ruth ilable Not Available Vitals Date Recorded Body height Body mass index (BMI) Body weight Systolic And Diastolic Provider Name and Address Organization Details Last Updated DateTime 03/09/2025 160.02 cm 36.8 kg/m2 73278.21 g 124/83 mm[Hg] KARLA HARMONY [facility] 03/09/2025 15:35:47 Social History Question Answer Notes LastModified by Organizat ion Details LastModified Time Do You Have An Advance Directive? No Information n ot available 08/11/2024 Are You Blind Or Do You Have Difficulty Seeing? No Information not available 08/11/2024 What Is Your Level Of Caffeine Consumption? Moderate Information not available 08/11/2024 How Much Tobacco Do You Chew? None Information not available 08/11/2024 In The 14 Days Before Symptom Onset, Have You Had Close Contact With A Laboratory-confirme d COVID-19 While That Case Was Ill? No Information n ot available 08/11/2024 In The 14 Days Before Symptom Onset, Have You Had Close Contact With A Person Who Is Under Investigation For COVID-19 While That Person Was Ill? No Information not available 08/11/2024 Have You Been To An Area Known To Be High Risk For COVID-19? No Information not available 08/11/2024 Are You Deaf Or Do You Have Serious Difficulty Hearing? No Information not available 08/11/2024 What Type Of Diet Are You Following? REGULAR Information n ot available 08/11/2024 What Is The Highest Grade Or Level Of School You Have Completed Or The Highest Degree You Have Received? [id number] Information not available 08/11/2024 Are There Any Guns Present In Your Home? Yes Information not available 08/11/2024 Do You Use Protection During Sex? No Information not available 08/11/2024 Do You Use Your Seat Belt Or Car Seat Routinely? Yes Information not available 08/11/2024 Do You Have Smoke And Carbon Monoxide Detectors In Your Home? Yes Information not available 08/11/2024 How Much Tobacco Do You Smoke? No Information not available 08/11/2024 Do You Use Sunscreen Routinely? Yes Information not available 08/11/2024 Have You Used IV Drugs? No Information not available 08/11/2024 Sex: Unknown Functional Status Question Answer Note LastModified by Organizat ion Details LastModified Time Do you use any illicit or recreational drugs? No Information not available 08/11/2024 What is your level of alcohol consumption? None Information not available 08/11/2024 Are you able to walk independently without assistance or assistive devices? 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 Occasional Information not available 08/11/2024 Mental Status Question Answer Note LastModified by Organization D etails LastModified Time Do you feel stressed (tense, restless, nervous, or anxious, or unable to sleep at night)? [id number] Information not available 08/11/2024 Family History Relationship Description Onset Age of this Age Resolved Age Notes LastModified by Organization Details LastModified Time Unspecified Relation Family history unknown Not available 2024 16:45:41 Medical History Condition Response Allergies (Food, seasonal, environmental ) Y History of abnormal pap Y Hepatitis/Liver Disease N Arthritis Y Pre-Eclampsia Y Hematologic disorders Y Gynecological History Statement/Question Response Abnormal Pap Y Flow Moderate Date of LMP 06/02/2024 On BCP's at Conception? N N Was last menstrual period normal Y STIs/STDs N HPV Vaccine Y Duration of Flow (days) 5 Current Control Method Are cycles usually normal Y Frequency of Cycle (Q days) 28 Sexually Active? Y None Menses Monthly Y Age of first menstrual cycle 13 Date of Last Pap Smear 03/26/2021 Sexual Problems? N Desired Control Method None LMP Definite N Obstetrics History GPAL:G 2 P 1 0 0 1 Type Value Full Term 1 Living 1 Total 2 Past Encounters Encounter ID Performer Location Encounter Start Date Encounter Closed Date Diagnosis/Indication Diagnosis SNOMED-CT Code Diagnosis ICD10 Code Diagnosis IMO Codes Diagnosis Note [id number] WINIFRED DELCID MD [facility] [address],[place] [address] 02/10/2025 13:52:17 02/10/2025 14:38:34 care status 398877799 Z34.83 [id number] Sloan Talamantes MD [facility] [address],[place] [address] 02/16/2025 16:03:00 02/16/2025 17:10:08 care status 072835630 Z34.83 [id number] Sloan Talamantes MD [facility] [address],[place] [address] 02/26/2025 15:55:13 02/26/2025 17:21:51 care status [id number] Z34.83 [id number] WINIFRED DELCID MD [facility] [address],[place] [address] 03/02/2025 10:48:18 03/02/2025 11:16:34 care status [id number] Z34.83 [id number] WINIFRED DELCID MD [facility] [address],[place] [address] 03/09/2025 15:30:45 03/09/2025 15:50:30 care status [id number] Z34.83 [id number] Health Concerns Section Related Observation LastModified by Organization Detai ls LastModified Time None Recorded Concern Status LastModified by Organization Details LastModified Time None Recorded Payers Encounter Date Sequence Insurance Name Policy Number Policy Meredith Covered Member ID Meredith Member ID Guarantor Name 03/09/2025 1 [facility] [id number] Stefanie Cortes [id number] Stefanie [place] Notes Date Note Type Note Provider Name and Address Organization Details Recorded Time 03/09/2025 text/html Generic HPI TemplateReported by Patient WINIFRED DELCID MD [address], [place], [phone], [facility] 03/09/2025 15:50:01 OBGyn Episode Ob Episode Information Episode Created Date Number of Fetuses Patient Bloodtype Patient rh Status Prepregnancy Weight lbs Domestic Partner Domestic Partner Phone Father Name [employer] Status 09/02/19 25 1 O Negative OPEN Fetus Data First Name Last Name Admitted to NICU Weight (g) Sex Living Outcome Pediatric Complications Fetus ID Race Codes Race Delivery Type [id number] Problems Problem Notes Problem Name Start Date End Date Resolution Snomed Code Not e Rheumatoid arthritis 12/16/2024 [id number] previously on Humira Tino Calculation Initial Tino Date Initial Exam Date Initial Exam Provider Initial Ultrasound Date Last Menstrual Period Date Ultra Sound Weeks Gestation 03/09/2025 09/01/2024 08/11/2024 06/02/2024 10 Eighteen To Twenty Week Tino Update Ultra Sound Date Fundal Height At Umbil Quickening Date Ultra Sound Latest Weeks Gestation Final Tino Confirmed By Final Tino Confirmed Date Final Tino Date Ultra Sound Latest Days Gestation 10/29/19 25 21 [email or web address] 09/01/2024 03/09/20 25 3 Pre-hiram Flowsheet Flowsheet Date 09/01/2024 Garzon Score Blood Edema Fundus Height Fundus Units Glucose Ketones Leukocytes Nitrite Labor Signs Protein Cervic Dilation Cervic Effacement Cervic Station neg none Type Weight in lbs Pre/Post Dialysis Refused Weight 162.489894542180 BP Diastolic BP Location Tested BP Systolic BP Type 81 L arm 117 sitting Fetus Heart Rate Present A Present Fetus Movement A No Comments Patient [facility] to [facility]. Hx of at 37 weeks, MIL for gestational hypertension vs white coat hypertension. Discussed bASA ppx for this due to possible increased risk. otherwise uncomplicated. Breast rash improved, still on Keflex, improved with steroid cream. No nausea or cramping. NT/NB wnl today, desires NIPT. Will draw today with new OB labs. RTC 4 weeks for routine care. Flowsheet Date 09/29/2024 Garzon Score Blood Edema Fundus Height Fundus Units Glucose Ketones Leukocytes Nitrite Labor Signs Protein Cervic Dilation Cervic Effacement Cervic Station neg none Type Weight in lbs Pre/Post Dialysis Refused Weight 164.960027171382 BP Diastolic BP Location Tested BP Systolic BP Type 82 L arm 122 sitting Fetus Heart Rate Present A 140 Fetus Movement A No Comments Doing well, no issues. Had a bad headache a few weeks ago. No nausea, cramping or bleeding. NIPT LR, however no call on sex chromosomes. Per [place], will not repeat. Discussed with patient. Other OB labs wnl. RH neg, discussed rhogam at 28 weeks. RTC 4 weeks for anatomy US. Flowsheet Date 10/28/2024 Garzon Score Blood Edema Fundus Height Fundus Units Glucose Ketones Leukocytes Nitrite Labor Signs Protein Cervic Dilation Cervic Effacement Cervic Station Type Weight in lbs Pre/Post Dialysis Refused BP Diastolic BP Location Tested BP Systolic BP Type Fetus Heart Rate Present Fetus Movement Comments Flowsheet Date 10/28/2024 Garzon Score Blood Edema Fundus Height Fundus Units Glucose Ketones Leukocytes Nitrite Labor Signs Protein Cervic Dilation Cervic Effacement Cervic Station neg none Type Weight in lbs Pre/Post Dialysis Refused Weight 167.243064255954 BP Diastolic BP Location Tested BP Systolic BP Type 74 R arm 110 sitting Fetus Heart Rate Present A Present Fetus Movement A Yes Comments Good movement. No blee ding or cramping. Having a boy! Anatomy complete and normal today, EFW 50%. RTC 4 weeks. Flowsheet Date 11/18/2024 Garzon Score Blood Edema Fundus Height Fundus Units Glucose Ketones Leukocytes Nitrite Labor Signs Protein Cervic Dilation Cervic Effacement Cervic Station Type Weight in lbs Pre/Post Dialysis Refused Weight 176.733321019410 BP Diastolic BP Location Tested BP Systolic BP Type 79 L arm 127 sitting Fetus Heart Rate Present A 140 Fetus Movement A Yes Comments Doing well, some pelvic pain and pressure. Good movement. Lab orders for GCT and 28 week labs with Rhogam given today. RTC 4 weeks. Flowsheet Date 12/16/2024 Garzon Score Blood Edema Fundus Height Fundus Units Glucose Ketones Leukocytes Nitrite Labor Signs Protein Cervic Dilation Cervic Effacement Cervic Station Type Weight in lbs Pre/Post Dialysis Refused Weight 184.025695890816 BP Diastolic BP Location Tested BP Systolic BP Type 75 L arm 110 sitting Fetus Heart Rate Present Fetus Movement A Yes Comments Good movement. No cram ping or bleeding. Passed GCT and other normal 28 week labs. Discussed tdap and RSV vaccine. RTC 2 weeks. Plan for growth US at 32 weeks for hx of RA. Flowsheet Date 12/30/2024 Garzon Score Blood Edema Fundus Height Fundus Units Glucose Ketones Leukocytes Nitrite Labor Signs Protein Cervic Dilation Cervic Effacement Cervic Station Type Weight in lbs Pre/Post Dialysis Refused Weight 188.866122607880 BP Diastolic BP Location Tested BP Systolic BP Type 79 L arm 116 sitting Fetus Heart Rate Present A 140 Fetus Movement A Yes Comments Good movement. No cram ping or bleeding. Growth US next visit. RTC 2 weeks. Flowsheet Date 01/13/2025 Garzon Score Blood Edema Fundus Height Fundus Units Glucose Ketones Leukocytes Nitrite Labor Signs Protein Cervic Dilation Cervic Effacement Cervic Station Type Weight in lbs Pre/Post Dialysis Refused BP Diastolic BP Location Tested BP Systolic BP Type Fetus Heart Rate Present Fetus Movement Comments Flowsheet Date 01/13/2025 Garzon Score Blood Edema Fundus Height Fundus Units Glucose Ketones Leukocytes Nitrite Labor Signs Protein Cervic Dilation Cervic Effacement Cervic Station Type Weight in lbs Pre/Post Dialysis Refused 193.55806559772 BP Diastolic BP Location Tested BP Systolic BP Type 73 L arm 113 sitting Fetus Heart Rate Present A Present Fetus Movement A Yes Comments Doing well, good movem ent. No cramping or bleeding. BH contractions. EFW 49%, vertex. Discussed tdap and RSV. RTC 2 weeks. Flowsheet Date 01/27/2025 Garzon Score Blood Edema Fundus Height Fundus Units Glucose Ketones Leukocytes Nitrite Labor Signs Protein Cervic Dilation Cervic Effacement Cervic Station Type Weight in lbs Pre/Post Dialysis Refused 195.514455369371 BP Diastolic BP Location Tested BP Systolic BP Type 68 L arm 107 sitting Fetus Heart Rate Present A 140 Fetus Movement A Yes Comments Doing well, good movem ent. Daily BH contractions. Would like MIL at 41 weeks. Discussed GBS for next visit. RTC 2 weeks. Flowsheet Date 02/10/2025 Garzon Score Blood Edema Fundus Height Fundus Units Glucose Ketones Leukocytes Nitrite Labor Signs Protein Cervic Dilation Cervic Effacement Cervic Station 1cm 50% -3 Type Weight in lbs Pre/Post Dialysis Refused 203.51150803874 BP Diastolic BP Location Tested BP Systolic BP Type 79 L arm 116 sitting Fetus Heart Rate Present A 145 Fetus Movement A Yes Comments Doing well, baby active. No bleeding. Irregular contractions. Received RSV and tdap. GBS collected. SVE 1cm. RTC 1 week. Flowsheet Date 02/16/2025 Garzon Score Blood Edema Fundus Height Fundus Units Glucose Ketones Leukocytes Nitrite Labor Signs Protein Cervic Dilation Cervic Effacement Cervic Station Type Weight in lbs Pre/Post Dialysis Refused Weight 199.043541821453 BP Diastolic BP Location Tested BP Systolic BP Type 82 L arm 122 sitting Fetus Heart Rate Present A 150 Present Fetus Movement A Yes Comments no complaints, no problems, routine care, no contractions, no vaginal bleeding, no loss of fluid, no cramping Flowsheet Date 02/26/2025 Garzon Score Blood Edema Fundus Height Fundus Units Glucose Ketones Leukocytes Nitrite Labor Signs Protein Cervic Dilation Cervic Effacement Cervic Station 3cm Type Weight in lbs Pre/Post Dialysis Refused Weight 204.140121815686 BP Diastolic BP Location Tested BP Systolic BP Type 77 L arm 119 sitting Fetus Heart Rate Present A 150 Present Fetus Movement A Yes Comments no complaints, no problems, routine care, no contractions, no vaginal bleeding, no loss of fluid, no cramping Flowsheet Date 03/02/2025 Garzon Score Blood Edema Fundus Height Fundus Units Glucose Ketones Leukocytes Nitrite Labor Signs Protein Cervic Dilation Cervic Effacement Cervic Station 3cm 70% -2 Type Weight in lbs Pre/Post Dialysis Refused Weight 205.562434092422 BP Diastolic BP Location Tested BP Systolic BP Type 80 L arm 133 sitting Fetus Heart Rate Present Fetus Movement A Yes Comments Doing well, good movem ent. No strong contractions or bleeding. GBS positive. SVE 3-4cm. RTC 1 week. Flowsheet Date 03/09/2025 Garzon Score Blood Edema Fundus Height Fundus Units Glucose Ketones Leukocytes Nitrite Labor Signs Protein Cervic Dilation Cervic Effacement Cervic Station 4cm 70% -2 Type Weight in lbs Pre/Post Dialysis Refused Weight 208.582620676100 BP Diastolic BP Location Tested BP Systolic BP Type 83 L arm 124 sitting Fetus Heart Rate Present A 150 Fetus Movement Comments Good movement. No regu lar contractions, no bleeding. Having some hemorrhoids with constipation. Membrane sweep performed. Labor precautions reviewed. EIL Friday 03/16 Menstrual History Last Menstrual Date Menses Monthly On Bcp Conception Prior Menses Frequency Hcg Plus Date Menarche Onset Age 0306/02/2024 false false Delivery Information Delivery Date Delivery Type Labor Anesthesia Weeks Gestation Incision Type Labor Labor Length Hrs Delivered By Post Complications Tubal Sterilization Discharge Date Comments Discharge Information Feeding Method Contraceptive Method Maternal HG B and HCT Levels
--- OUTSIDE RECORDS SUMMARY | 2025-03-16 05:06 | XMS_ITS | Continuity of Care Document ---
Author Organization [facility], [facility] [address] [place] [address] Care Team Providers Care Toll Test Desk Worker Name Role Phone MADRID, BRODERICK Primary Care [...] [facility] [address], [place], [address], 09/08/2024 22:51:39 09/09/19 25 09/08/2024 [UNIT Y] BLAINE ER SCREE N alpha-thalas semia carrier screen NEGATI VE normal Not Available [facility] [address], [place], [address], 09/08/2024 22:51:39 09/09/19 25 09/08/2024 [UNIT Y] BLAINE ER SCREE N cystic fibrosis carrier screen NEGATI VE normal Not Available [facility] [address], [place], [address], 09/08/2024 22:51:39 09/09/19 25 09/08/2024 [UNIT Y] BLAINE [place] spinal muscular atrophy carrier screen NEGATI VE 3 SMN1 copies , SNP not presen t normal Not Available [facility] [address], [place], [address], 09/08/2024 22:51:39 09/09/19 25 09/08/2024 [UNIT Y] BLAINE [place] for detailed report, see pdf See PDF normal Not Available [address] [address], [place], [address], 09/08/2024 22:51:39 09/13/19 25 09/12/2024 [UNIT Y] ANEUP LOIDY NIPT redraw requested? No normal Not Available Angelo [facility] [address], [place], [address], 09/12/2024 00:04:22 09/13/19 25 09/12/2024 [UNIT Y] ANEUP LOIDY NIPT fraction 9.1% normal Not Available [facility] [address], [place], [address], 09/12/2024 00:04:22 09/13/19 25 09/12/2024 [UNIT Y] ANEUP LOIDY NIPT 22Q11.2 microdeletio n LOW RISK <1 in 10,000 normal Not Available [address] [address], [place], [address], 09/12/2024 00:04:22 09/13/19 25 09/12/2024 [UNIT Y] [...] Available [facility] [address], [place], [address], 09/12/2024 00:04:22 09/13/19 25 09/12/2024 [UNIT Y] ANEUP LOIDY NIPT sex chromosome aneuploidy NO CALL abnormal Not Available [address] [address], [place], [address], 09/12/2024 00:04:22 09/13/19 25 09/12/2024 [UNIT Y] ANEUP LOIDY NIPT monosomy X NO CALL abnormal Not Available [address] [address], [place], [address], 09/12/2024 00:04:22 09/13/19 25 09/12/2024 [UNIT Y] ANEUP LOIDY NIPT trisomy 13 LOW RISK <1 in 10,000 normal Not Available [address] [address], [place], [address], 09/12/2024 00:04:22 09/13/19 25 09/12/2024 [UNIT Y] ANEUP LOIDY NIPT trisomy 18 LOW RISK <1 in 10,000 normal Not Available [address] [address], [place], [address], 09/12/2024 00:04:22 09/13/19 25 09/12/2024 [UNIT Y] ANEUP LOIDY NIPT trisomy 21 LOW RISK <1 in 10,000 normal Not Available [facility] [address], [place], [address], 09/12/2024 00:04:22 09/13/19 25 09/12/2024 [UNIT Y] ANEUP LOIDY NIPT sex N/A abnormal Not Available [facility] [address], [place], [address], 09/12/2024 00:04:22 09/13/19 25 09/12/2024 [UNIT Y] ANEUP LOIDY NIPT gestation SINGLE TON normal Not Available [facility] [address], [place], [address], 09/12/2024 00:04:22 09/13/19 25 09/12/2024 [UNIT Y] ANEUP LOIDY NIPT for detailed report, see pdf See PDF normal Not Available [facility] [address], [place], [address], 09/12/2024 00:04:22 09/02/19 25 09/01/2024 CBC W/DIF F WBC 11.5 10'3/ uL 3.5-10 .5 high Not Available [facility] (Lab) [address] , [place], [address], 09/02/2024 13:48:30 09/02/19 25 09/01/2024 CBC W/DIF F RBC 4.99 10'6/ uL (based on docume nted legal sex) 3.80-5 .20 Not Available [facility] (Lab) [address] , [place], [address], 09/02/2024 13:48:30 09/02/19 25 09/01/2024 CBC W/DIF F HGB 14.4 g/dL (based on docume nted legal sex) 11.6-1 5.4 Not Available [facility] (Lab) [address] , [place], [address], 09/02/2024 13:48:30 09/02/19 25 09/01/2024 CBC W/DIF F HCT 42.5 % (based on docume nted legal sex) 34.0-4 5.0 Not Available [facility] (Lab) [address], [place], [address], 09/02/2024 13:48:30 09/02/19 25 09/01/2024 CBC W/DIF F MCV 85.2 fL 80.0-9 9.0 Not Available [facility] (Lab) [address] [facility], [place], [address], 09/02/2024 13:48:30 09/02/19 25 09/01/2024 CBC W/DIF F MCH 28.9 pg 27.0-3 4.0 Not Available [facility] (Lab) [address] [facility], [place], [address], 09/02/2024 13:48:30 09/02/19 25 09/01/2024 CBC W/DIF F MCHC 33.9 g/dL 32.0-3 5.5 Not Available [facility] (Lab) [address] [facility], [place], [address], 09/02/2024 13:48:30 09/02/19 25 09/01/2024 CBC W/DIF F RDW 13.2 % 11.0-1 5.0 Not Available [facility] (Lab) [address] [facility], [place], [address], 09/02/2024 13:48:30 09/02/19 25 09/01/2024 CBC W/DIF F plt 208 10'3/ uL 150-40 0 Not Available [facility] (Lab) [address] [facility], [place], [address], 09/02/2024 13:48:30 09/02/19 25 09/01/2024 CBC W/DIF F MPV 12.3 fL 8.8-12 .1 high Not Available [facility] (Lab) [address] [facility], [place], [address], 09/02/2024 13:48:30 09/02/19 25 09/01/2024 CBC W/DIF F NRBC's 0.0 % 0.0 Not Available [facility] (Lab) [address] [place], [address], 09/02/2024 13:48:30 09/02/19 25 09/01/2024 CBC W/DIF F absolute NRBCs 0.0 10'3/ uL no refere nce range establ ished Not Available [facility] (Lab) [address] [facility], [place], [address], 09/02/2024 13:48:30 09/02/19 25 09/01/2024 CBC W/DIF F neutrophils 70.5 % 34.0-7 3.0 Not Available [facility] (Lab) [address] [facility], [place], [address], 09/02/2024 13:48:30 09/02/19 25 09/01/2024 CBC W/DIF F lymphocytes 21.9 % 15.0-5 0.0 Not Available [facility] (Lab) [address] [facility], [place], [address], 09/02/2024 13:48:30 09/02/19 25 09/01/2024 CBC W/DIF F monocytes 5.8 % 1.0-15 .0 Not Available [facility] (Lab) [address] [facility], [place], [address], 09/02/2024 13:48:30 09/02/19 25 09/01/2024 CBC W/DIF F eosinophils 1.3 % 0.0-8. 0 Not Available [facility] (Lab) [address] [place], [address], 09/02/2024 13:48:30 09/02/19 25 09/01/2024 CBC W/DIF F basophils 0.2 % 0.0-2. 0 Not Available [facility] (Lab) [address] [place], [address], 09/02/2024 13:48:30 09/02/19 25 09/01/2024 CBC W/DIF [...] separ ately if prese nt. Not Available [facility] (Lab) [address] [facility], [place], [address], 09/02/2024 13:48:30 09/02/19 25 09/01/2024 CBC W/DIF F absolute neutrophils 8.1 10'3/ uL 1.5-8. 0 high Not Available [facility] (Lab) [address] [facility], [place], [address], 09/02/2024 13:48:30 09/02/19 25 09/01/2024 CBC W/DIF F absolute lymphocytes 2.5 10'3/ uL 1.0-4. 0 Not Available [facility] (Lab) [address] [facility], [place], [address], 09/02/2024 13:48:30 09/02/19 25 09/01/2024 CBC W/DIF F absolute monocytes 0.7 10'3/ uL 0.2-1. 0 Not Available [facility] (Lab) [address] [facility], [place], [address], 09/02/2024 13:48:30 09/02/19 25 09/01/2024 CBC W/DIF F absolute eosinophils 0.2 10'3/ uL 0.0-0. 6 Not Available [facility] (Lab) [address] [facility], [place], [address], 09/02/2024 13:48:30 09/02/19 25 09/01/2024 CBC W/DIF F absolute basophils 0.0 10'3/ uL 0.0-0. 3 Not Available [facility] (Lab) [address] [facility], [place], [address], 09/02/2024 13:48:30 09/02/19 25 09/01/2024 CBC W/DIF F absolute immature granulocytes 0.0 10'3/ uL 0.00-0 .10 Refer ence range s for nonbi nary/ inter sex or unspe cifie d gende r patie nts have not been estab lishe d. Felisha zurita refer to the guidoo wing table for range s estab lishe d for cisge nder patie nts and evalu ate in the clini john miracle xt of the indiv idual patie nt: https ://la benand book. nm.or g/gen derx Not Available [facility] (Lab) [address] [facility], [place], [address], 09/02/2024 13:48:30 09/02/19 25 09/01/2024 TYPE/ RH/SC REEN ABO/Rh type O NEG Not Available [facility] (Lab) [address] [facility], [place], [address], 09/02/2024 13:48:30 09/02/19 25 09/01/2024 TYPE/ RH/SC REEN antibody screen NEG Not Available [facility] (Lab) [address] [facility], [place], [address], 09/02/2024 13:48:30 09/02/19 25 09/01/2024 TYPE/ RH/SC REEN exp date 2024 23:59 Not Available [facility] (Lab) [address] [place], [address], 09/02/2024 13:48:30 09/02/1909/01/2024 HIV 1/2 ANTIG EN/AN TIBOD Y, REFLE X CONFI RMATI ON HIV antigen/anti body Nonrea ctive nonrea ctive HIV-1 antig en and HIV-1 /HIV- 2 antib odies were not detec edouard. No labor atory evide nce of HIV infec tion. Not Available [facility] (Lab) [address] [facility], [place], [address], 09/02/2024 13:48:31 09/02/19 25 09/01/2024 HEPAT ITIS B SURFA CE ANTIG EN hepatitis B surface antigen Non-re active non-re active This assay was perfo rmed using [employer] ratio n reage nts and test kits. Value s obtai blaine with other assay metho ds or kits canno t be used inter stover eably . Not Available [facility] (Lab) [address] [facility], [place], [address], 09/02/2024 13:48:31 09/02/19 25 09/01/2024 HEPAT ITIS C ANTIB MARV SCREE N, REFLE X TO CONFI RMATI ON hepatitis C antibody Non-re active non-re active Antib odies to HCV Not Detec edouard, does not exclu de the possi bilit y of expos ure to HCV. Not Available [facility] (Lab) [address] [facility], [place], [address], 09/02/2024 13:48:31 09/02/19 25 09/01/2024 RUBEL LA IGG ANTIB MARV, QUANT rubella antibodies, IgG Reacti ve reacti ve Not Available [facility] (Lab) [address] [place], [address], 09/02/2024 13:48:32 09/02/19 25 09/01/2024 RUBEL LA IGG ANTIB MARV, QUANT rubella antibodies, IgG quant 12.2 IU/mL >=10 Non-r eacti ve (Non- Immun e) <10 IU/mL React nkechi (Immu ne) > or = 10 IU/mL Not Available [facility] (Lab) [address] [place], [address], 09/02/2024 13:48:32 09/02/19 25 09/01/2024 RPR SCREE N, REFLE X TITER /CONF IRMAT ION RPR qualitative Nonrea ctive nonrea ctive Not Available [facility] (Lab) [address] [place], [address], 09/02/2024 13:48:32 09/02/19 25 09/01/2024 HEMOG LOBIN [...] >8.0% Actio n sugge sted Not Available [facility] (Lab) [address], [place], [address], 09/02/2024 13:48:32 09/02/1909/01/2024 CULTU RE: URINE result report SEE RESULT S BELOW Test: Cultu re: Urine Speci men Sourc e: Urine Voide d Speci men Type: Urine Speci men Date: 025 1116 Resul t Date: 2024 Resul t Statu s: Final resul t Abnor mal: No Resul ting Lab: [facility] [address] [facility] [address] Tel: CULTU RE ----- ----- ----- --- No growt h in 1 day (dete ction level of 10,00 0 colon ies / ml.) Not Available [facility] (Lab) [address], [place], [address], 09/02/2024 21:37:00 09/02/19 25 09/01/2024 drug scree n, urine Amphetamines : negati ve Not Available [facility] [address], [place], [address], 09/01/2024 11:12:32 09/02/19 25 09/01/2024 drug scree n, urine Cannabinoids : negati ve Not Available [facility] [address], [place], [address], 09/01/2024 11:12:32 09/02/19 25 09/01/2024 drug scree n, urine Cocaine: negati ve Not Available [address], [place], [address], 09/01/2024 11:12:32 09/02/19 25 09/01/2024 drug scree n, urine Opiates: negati ve Not Available [address], [place], [address], 09/01/2024 11:12:32 09/02/19 25 09/01/2024 drug scree n, urine Phenocyclidi ne: negati ve Not Available [address], [place], [address], 09/01/2024 11:12:32 09/02/19 25 09/01/2024 drug scree n, urine Barbiturates : negati ve Not Available [address], [place], [address], 09/01/2024 11:12:32 09/02/19 25 09/01/2024 drug scree n, urine Benzodiazepi loan: negati ve Not Available [address], [place], [address], 09/01/2024 11:12:32 09/02/19 25 09/01/2024 drug scree n, urine Ethanol: negati ve Not Available [address], [place], [address], 09/01/2024 11:12:32 09/02/19 25 09/01/2024 drug scree n, urine Hallucinogen s: negati ve Not Available [address], [place], [address], 09/01/2024 11:12:32 09/02/19 25 09/01/2024 drug scree n, urine Inhalants: negati ve Not Available [address], [place], [address], 09/01/2024 11:12:32 09/02/19 25 09/01/2024 drug scree n, urine Anabolic Steroids: negati ve Not Available [address], [place], [address], 09/01/2024 11:12:32 09/02/19 25 09/01/2024 drug scree n, urine Other: negati ve Not Available [address], [place], [address], 09/01/2024 11:12:32 09/02/19 25 09/01/2024 US, obste tric, nucha l trans lucen cy No observ ation record ed. [facility] [address], [place], [address], 09/01/2024 18:48:24 09/02/19 25 09/01/2024 US, obste tric, nucha l trans lucen cy No observ ation record ed. [email or web address] Lindsay [address], [place], [address], 09/02/2024 11:29:46 10/29/19 25 10/28/2024 US, obste tric, 2nd or 3rd trime ster No observ ation record ed. [facility] [address], [place], [address], 10/28/2024 18:24:58 10/29/19 25 10/28/2024 US, obste tric, 2nd or 3rd trime ster No observ ation record ed. [email or web address] [address], [place], [address], 10/28/2024 22:59:36 01/14/20 25 01/13/2025 US, obste tric, follo w-up No observ ation record ed. ELIE Montoya [address], [place], [address], 01/16/2025 19:25:04 01/14/20 25 01/13/2025 US, obste tric, follo w-up No observ ation record ed. [email or web address] [address], [place], [address], 01/13/2025 17:54:59 Result Notes None recorded. Problems Name Problem SNOMED Code Status Onset Date Resolution Date Notes Provider Name and Address Organization Details Recorded Time 96435977 Active 2024 ISRAEL hurtado, [facility] 10:27:09 Rheumatoi d arthritis 55180825 Active 2024 previously on Juliette DELCID MD [address], [place], [address], [facility] 16:24:19 Problem Notes None recorded. Procedures Surgical History Date Name Laterality Status Provider Name and Address Organization Details Recorded Time 03/26/19 22 Date of Last Pap Smear completed [facility] 08/11/2024 16:48:19 10/02/18 97 [facility] of liver [facility] 16:51:12 Imaging Results None recorded. [...] Not Available Not Avai lable Not Available Laurel 3 Fish Oil 08/11 completed Not Available Not Available Not Available Humira 08/11 completed Not Available Not Available Not Available Probiotic active Not Available Not Ruth ilable Not Available Vitals Date Recorded Body height Body mass index (BMI) Body weight Systolic And Diastolic Provider Name and Address Organization Details Last Updated DateTime 12/16/2024 160.02 cm 32.6 kg/m2 48386 g 110/75 mm[Hg] Dolly Kline [facility] 12/16/2024 16:05:45 Social History Question Answer Notes LastModified by [...] Or The Highest Degree You Have Received? TS84162-2 Information not available 08/11/2024 Are There Any [...] anxious, or unable to sleep at night)? PN08684-4 Information not available 08/11/2024 Family History Relationship [...] ICD10 Code Diagnosis IMO Codes Diagnosis Note [id number] WINIFRED DELCID MD [facility] [address] [address] 11/18/2024 16:45:57 11/18/2024 17:58:53 care status 652262989 Z34.82 [id number] screening 2437 88935 Z36.89 O36.0130 [id number] WINIFRED DELCID MD Gary [address] [address] 12/16/2024 15:55:58 12/16/2024 16:42:41 Rheumatoid arthritis 21609307 M06.9 [id number] Gestation period, 28 weeks 61299612 Z3A.28 3076239 - continue [facility] Concerns Section Related Observation LastModified by Organization Detai ls LastModified Time None Recorded Concern Status LastModified by Organization Details LastModified Time None Recorded Payers Encounter Date Sequence Insurance Name Policy Number Policy Meredith Covered Member ID Meredith Member ID Guarantor Name 12/16/2024 1 [facility] [id number] Stefanie Cortes [id number] Stefanie Cortes Notes Date Note Type Note Provider Name and Address Organization Details Recorded Time 12/16/2024 text/html Generic HPI TemplateReported by Patient WINIFRED DELCID MD [address], [place], [address], [facility] 12/16/2024 16:24:46 OBGyn Episode Ob Episode Information Episode Created Date Number of Fetuses Patient Bloodtype Patient rh Status Prepregnancy Weight lbs Domestic Partner Domestic Partner Phone Father Name Non Linear Editor Status 09/02/19 25 1 O Negative OPEN Fetus Data First Name Last Name Admitted to NICU Weight (g) Sex Living Outcome Pediatric Complications Fetus ID Race Codes Race Delivery Type [id number] Problems Problem Notes Problem Name Start Date End Date Resolution Snomed Code Not e Rheumatoid arthritis 12/16/2024 [id number] previously on Humira Tino Calculation Initial Tino [...] Sound Latest Days Gestation 10/29/19 25 21 [email or web address] 09/01/2024 03/09/20 25 3 Pre- Flowsheet Flowsheet Date 09/01/2024 Garzon Score Blood Edema Fundus Height Fundus Units Glucose Ketones Leukocytes Nitrite Labor Signs Protein Cervic Dilation Cervic Effacement Cervic Station neg none Type Weight in lbs Pre/Post Dialysis Refused Weight 162.596368218489 BP Diastolic BP Location Tested BP Systolic BP Type 81 L arm 117 sitting Fetus Heart Rate Present A Present Fetus Movement A No Comments Patient presents to [facility] care. Hx of at 37 weeks, [...] Weight in lbs Pre/Post Dialysis Refused Weight 164.326965049341 BP Diastolic BP Location Tested BP Systolic BP Type 82 L arm 122 sitting Fetus Heart Rate Present A 140 Fetus Movement A No Comments Doing well, no issues. Had a bad headache a few weeks ago. No nausea, cramping or bleeding. NIPT LR, however no call on sex chromosomes. Per [place], will not repeat. Discussed with patient. Other [...] Weight in lbs Pre/Post Dialysis Refused Weight 167.389925857317 BP Diastolic BP Location Tested BP Systolic [...] Weight in lbs Pre/Post Dialysis Refused Weight 176.745241039402 BP Diastolic BP Location Tested BP Systolic [...] Weight in lbs Pre/Post Dialysis Refused Weight 184.502225458464 BP Diastolic BP Location Tested BP Systolic [...] Weight in lbs Pre/Post Dialysis Refused Weight 188.508845941009 BP Diastolic BP Location Tested BP Systolic [...] Type Weight in lbs Pre/Post Dialysis Refused 193.30272034954 BP Diastolic BP Location Tested BP Systolic [...] Type Weight in lbs Pre/Post Dialysis Refused 195.058336637852 BP Diastolic BP Location Tested BP Systolic [...] Type Weight in lbs Pre/Post Dialysis Refused 203.20146412731 BP Diastolic BP Location Tested BP Systolic [...] Weight in lbs Pre/Post Dialysis Refused Weight 199.719882180673 BP Diastolic BP Location Tested BP Systolic [...] Weight in lbs Pre/Post Dialysis Refused Weight 204.248014940095 BP Diastolic BP Location Tested BP Systolic [...] Weight in lbs Pre/Post Dialysis Refused Weight 205.433558077396 BP Diastolic BP Location Tested BP Systolic [...] Weight in lbs Pre/Post Dialysis Refused Weight 208.387130349630 BP Diastolic BP Location Tested BP Systolic [...]
--- OUTSIDE RECORDS SUMMARY | 2025-03-16 05:06 | XMS_ITS | Encounter Summary ---
Author Organization [facility] Address [address] [facility] [place] [address] Care Team Providers Care Systems Design Engineer Name Role Phone Ayse Oh MD Primary Care Provider Lynsey Larson RN Unavailable Unavailable Dimitri Almonte MD Primary Care Provider [phone] Stephany Lott MD Unavailable [phone] Reason for Visit * Reason Onset Date Comments MEDICATION REFILL 01/23/2018 Encounter Details Date Type Department Care Team (Late Contact Info) Description 01/23/2018 Refill [facility] [address] [place] [address] Mana Rivera, PA-C [address] [place] [address] MEDICATION REFILL Social History Tobacco Use Types Packs/Day Years Used Date Smoking Tobacco: Passive Smo ke Exposure - Never Smoker Alcohol Use Standard Drinks/Week Comments No 0 (1 standard drink = 0.6 oz pur e alcohol) Comments No Sex and Gender Information Value Date Recorded Sex Assigned at Not on file Legal Sex 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 Gender Identity Not on file Sexual Orientation Not on file documented as of this encounter Plan of Treatment Upcoming Encounters Date Type Department Care Team (Late Contact Info) Description 07/15/2025 9:40 AM CDT Office Visit [facility] - Rheumatology [address] [facility], [place] [address] Zac Douglas MD [facility] [facility] [address]L [place] [address] 07/31/2025 9:00 AM CDT Office Visit [facility] - GI [address] [place] [address], [place] [address] Mana Rivera PA-C [address] [facility] [address]L [place] [address] documented as of this encounter Visit Diagnoses Not on filedocumented in this encounter Care Teams Systems Design Engineer Relationship Specialty Start Date End Date Ayse Oh MD [address] [facility] [address] [place] [address] PCP - General 08/03/10 09/23/19 Dimitri Almonte MD [address] [place] [address] PCP - General 09/24/19 Lynsey Larson, TOMA Registered Nurse 07/02/18 Stephany Lott MD [address] [facility] [place] [address] Physician Obstetrics and Gynecology 11/07/21 documented as of this encounter
--- OUTSIDE RECORDS SUMMARY | 2025-03-16 05:07 | XMS_ITS | Data Portability ---
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 Discussed plan. Not available 02/16/2025 16:22:53 02/26/2025 02/26/2025 Patient is ___weeks . Discussed plan. Not available 02/26/2025 16:32:54 Plan of Treatment Reminders Order Date Submit Date Provider Last Modified By Organization Details Last Modified Time Details Appointments INDUCTION 2024 05:00A M WINIFRED DELCID MD Not available Not available Not available Lab None recorded. Referral None recorded. Procedures None recorded. Surgeries None recorded. Imaging None recorded. Medication Orders None recorded. Patient TargetsNo targets recorded. Patient InstructionsNo instructions recorded. Reason for Referral None Reported. Results Created Date Observation Date Name Description Value Unit Range Abnormal Flag Note LastModifiedBy Organization Detail LastModifiedTime 02/11/2002/10/2025 CULTU RE: GROUP B STREP SCREE N, [...] t Abnor mal: Yes Resul ting Lab: [facility] [address] [facility] [address] Tel: CULTU RE ----- ----- ----- --- Posit nkechi for Strep tococ cus agala ctiae (Grou p B) (Abno rmal) Clind amyci n susce ptibl e, eryth romyc in resis tant. The clind amyci n induc tion test (D-t est) is negat nkechi, there fore clind amyci n shoul d be clini natasha effec tive again st this isola te. Not Available [facility] (Lab) [address] [facility], [place], [address], 02/14/2025 16:16:12 01/14/20 25 01/13/2025 , obste tric, follo w-up No observ ation record ed. ELIE Lindsay [address] [address], [place], [address], 01/16/2025 19:25:04 01/14/20 25 01/13/2025 , obste tric, follo w-up No observ ation record ed. [email or web address] [place] [address], [place], [address], 01/13/2025 17:54:59 Result Notes None recorded. Problems Name Problem SNOMED Code Status Onset Date Resolution Date Notes Provider Name and Address Organization Details Recorded Time 68466136 Active 2024 IS[place], [place] - [facility] 5 10:27:09 Rheumatoi d arthritis 42373870 Active 2024 previously on Juliette DELCID MD [address], [place], [address], [facility] - [facility] 16:24:19 Problem Notes None recorded. Procedures Surgical History Date Name Laterality Status Provider Name and Address Organization Details Recorded Time 03/26/19 22 Date of Last Pap Smear completed [facility] 08/11/2024 16:48:19 10/02/18 97 transplantation of liver completed [facility] 08/11/2024 16:51:12 Imaging Results None [...] Not Available Not Avai lable Not Available [place] 3 Fish Oil 08/11 completed Not Available Not Available Not Available Humira 08/11 completed Not Available Not Available Not Available Probiotic active Not Available Not Ruth ilable Not Available Vitals Date Recorded Body weight Body mass index (BMI) Body height Systolic And Diastolic Provider Name and Address Organization Details Last Updated DateTime 02/10/2025 74809.251 11 g 36 kg/m2 160.02 cm 116/79 mm[Hg] Dolly Kline [facility] 02/10/2025 14:12:35 Date Recorded Body height Body mass index (BMI) Body weight Systolic And Diastolic Provider Name and Address Organization Details Last Updated DateTime 02/16/2025 160.02 cm 35.3 kg/m2 08147.88 g 122/82 mm[Hg] Deena [facility] 02/16/2025 16:24:01 Date Recorded Body height Body mass index (BMI) Body weight Systolic And Diastolic Provider Name and Address Organization Details Last Updated DateTime 02/26/2025 160.02 cm 36.1 kg/m2 52829.84 g 119/77 mm[Hg] [facility] 02/26/2025 16:33:21 Date Recorded Body height Body mass index (BMI) Body weight Systolic And Diastolic Provider Name and Address Organization Details Last Updated DateTime 03/02/2025 160.02 cm 36.3 kg/m2 72116.44 g 133/80 mm[Hg] [facility] 03/02/2025 10:57:23 Date Recorded Body height Body mass index (BMI) Body weight Systolic And Diastolic Provider Name and Address Organization Details Last Updated DateTime 03/09/2025 160.02 cm 36.8 kg/m2 39215.21 g 124/83 mm[Hg] [facility] 03/09/2025 15:35:47 Social History Question Answer [...] Or The Highest Degree You Have Received? [id number] Information not available 08/11/2024 Are There Any [...] anxious, or unable to sleep at night)? [id number] Information not available 08/11/2024 Family History Relationship Description Onset Age of this Age Resolved Age Notes LastModified by Organization Details LastModified Time Unspecified Relation Family history unknown Not available 2024 16:45:41 Medical History Condition Response Allergies (Food, seasonal, environmental ) Y Hepatitis/Liver Disease N History of abnormal pap Y Arthritis Y Pre-Eclampsia Y Hematologic disorders Y [...] ICD10 Code Diagnosis IMO Codes Diagnosis Note [id number] Sloan Talamantes MD [place] [address],[place] [address] 08/11/2024 15:13:21 08/11/2024 15:47:20 [id number] Sloan Talamantes MD [place] [address],[place] [address] 08/11/2024 15:15:57 08/11/2024 17:16:47 Amenorrhea 51104391 N91.2 98230 this patient is a 29-year-ol d female who presents for amenorrhea . She is a positive test. Ultrasound revealed a 1st trimester gestation. Patient has no complaints . We talked about early care. Talked about genetic screening. We talked about her ultrasound results. We talked about the 12 week ultrasound that has genetic screening components . She was given recommenda tions on exercise, diet, over-the-c ounter medication s. We reviewed her obstetric history. We reviewed her medical history. We reviewed her social history. She will begin routine care at her next visit. [id number] Sloan Talamantes MD [place] [address],[place] [address] 08/20/2024 15:47:42 08/20/2024 17:19:08 Inflammatory dermatosis 542910368 L30.9 [id number] 29-year-ol d female who presents with bilateral nipple pruritus and lesions. Over the last few days pruritus began and increased dramatical ly. lesions formed. There was green discharge at the site of some of these lesions around the areola. Examinatio n revealed some mild erythema. Some cracks in the skin. Linear breaks in the skin that had small discharge. Diagnosis unclear. Biopsy at this time is not ideal. To treat empiricall y with topical antifungal and steroid along with oral systemic antibiotic . To follow up in 4 days. [id number] MD Maryse DE LEON [address],[place] [address] 09/01/2024 09:28:43 09/01/2024 11:44:47 Gestation period, 13 weeks 06811996 Z3A.13 9539971 screening 2437 74172 Z36.89 [id number] MD Maryse DE LEON [address],[place] [address] 09/01/2024 09:27:55 09/01/2024 10:06:25 screening 338566518 Z36.82 Z3A.13 584275 [id number] MD Maryse DE LEON [address],[place] [address] 09/29/2024 16:17:17 09/29/2024 16:50:07 care status 525266317 Z34.82 08332499 [id number] MD Maryse DE LEON [address],[place] [address] 10/28/2024 16:41:35 10/29/2024 10:00:35 screening for malformation 542181053 Z36.3 Z3A.21 9337895531 [id number] MD Maryse DE LEON [address],[place] [address] 10/28/2024 16:42:25 10/29/2024 09:57:32 care status 883726937 Z34.82 37539348 [id number] MD Maryse DE LEON [address],[place] [address] 11/18/2024 16:45:57 11/18/2024 17:58:53 care status 127409573 Z34.82 00383184 screening 2437 72084 Z36.89 O36.0130 [id number] MD Maryse DE LEON [address],[place] [address] 12/16/2024 15:55:58 12/16/2024 16:42:41 Rheumatoid arthritis 10323588 M06.9 5071780340 Gestation period, 28 weeks 61776995 Z3A.28 1908397 - continue PNV [id number] MD Maryse DE LEON [address],[place] [address] 12/30/2024 17:27:04 01/02/2025 08:54:34 care status 579879154 Z34.83 48779723 [id number] MD Maryse DE LEON [address],[place] [address] 01/13/2025 17:17:00 01/13/2025 17:52:49 Observational assessment 841177125 Z03.74 Z3A.32 8383993 [id number] MD Maryse DE LEON [address],[place] [address] 01/13/2025 17:17:32 01/13/2025 17:58:06 Rheumatoid arthritis 95979074 M06.9 5405947448 Gestation period, 32 weeks 8963858 Z3A.32 7169607 433773 MD Maryse DE LEON [address],[place] [address] 01/27/2025 16:31:09 01/27/2025 17:18:11 Rheumatoid arthritis 71868490 M06.9 3185650893 Gestation period, 34 weeks 20124263 Z3A.34 4053016 [id number] MD Maryse DE LEON [address],[place] [address] 02/10/2025 13:52:17 02/10/2025 14:38:34 care status 603277921 Z34.83 85067182 [id number] MD Maryse Tapia [address],[facility] [place] [address] 02/16/2025 16:03:00 02/16/2025 17:10:08 care status 675321028 Z34.83 68805528 [id number] Sloan Talamantes MD [place] [address],[place] [address] 02/26/2025 15:55:13 02/26/2025 17:21:51 care status 011647700 Z34.83 60212312 [id number] WINIFRED DELCID MD [place] [address],[place] [address] 03/02/2025 10:48:18 03/02/2025 11:16:34 care status 428657011 Z34.83 08362118 [id number] WINIFRED DELCID MD [place] [address],[place] [address] 03/09/2025 15:30:45 03/09/2025 15:50:30 care status 546041429 Z34.83 [id number] Health Concerns Section Related Observation LastModified by Organization Detai ls LastModified Time None Recorded Concern Status LastModified by Organization Details LastModified Time None Recorded Advance Directives Directive N: Payers Insurance Date Sequence Insurance Name Policy Number Policy Meredith Covered Member ID Meredith Member ID Guarantor Name 03/13/2025 1 [facility] [id number] Stefanie Cortes [id number] Stefanie Cortes Notes Date Note Type Note Provider Name and Address Organization Details Recorded Time 02/10/2025 text/html Generic HPI TemplateReported by Patient WINIFRED DELCID MD [address], [place], [address], [facility] 02/10/2025 14:37:35 02/16/2025 text/html Generic HPI TemplateReported by Patient Sloan Talamantes MD [address], [place], [address], [facility] 02/16/2025 16:59:49 02/26/2025 text/html Generic HPI TemplateReported by Patient Sloan Talamantes MD [address], [place], [address], [facility] 02/26/2025 17:16:42 03/02/2025 text/html Generic HPI TemplateReported by Patient WINIFRED DELCID MD [address], [place], [address], [facility] 03/02/2025 11:16:25 03/09/2025 text/html Generic HPI TemplateReported by Patient WINIFRED DELCID MD [address], [place], [address], [facility] 03/09/2025 15:50:01 OBGyn Episode Ob Episode Information Episode Created Date Number of Fetuses Patient Bloodtype Patient rh Status Prepregnancy Weight lbs Domestic Partner Domestic Partner Phone Father Name Charge Authorizer Status 08/12/19 25 1 CLOSED Fetus Data First Name Last Name Admitted to NICU Weight (g) Sex Living Outcome Pediatric Complications Fetus ID Race Codes Race Delivery Type 2976.47 0704 F Full Term 13658 Vaginal Delivery Tino Calculation Initial Tino Date Initial Exam Date Initial Exam Provider Initial Ultrasound Date Last Menstrual Period Date Ultra Sound Weeks Gestation 0 Eighteen To Twenty Week Tino Update Ultra Sound Date Fundal Height At Umbil Quickening Date Ultra Sound Latest Weeks Gestation Final Tino Confirmed By Final Tino Confirmed Date Final Tino Date Ultra Sound Latest Days Gestation 0 0 Menstrual History Last Menstrual Date Menses Monthly On Bcp Conception Prior Menses Frequency Hcg Plus Date Menarche Onset Age Delivery Information Delivery Date Delivery Type Labor Anesthesia Weeks Gestation Incision Type Labor Labor Length Hrs Delivered By Post Complications Tubal Sterilization Discharge Date Comments 3 37 Discharge Information Feeding Method Contraceptive Method Maternal HG B and HCT Levels Ob Episode Information Episode Created Date Number of Fetuses Patient Bloodtype Patient rh Status Prepregnancy Weight lbs Domestic Partner Domestic Partner Phone Father Name Charge Authorizer Status 09/02/19 25 1 O Negative OPEN Fetus Data First Name Last Name Admitted to NICU Weight (g) Sex Living Outcome Pediatric Complications Fetus ID Race Codes Race Delivery Type [id number] Problems Problem Notes Problem Name Start Date End Date Resolution Snomed Code Not e Rheumatoid arthritis 12/16/2024 [id number] previously on Humira Tino Calculation Initial Tino [...] Sound Latest Days Gestation 10/29/19 25 21 [email or web address] 09/01/2024 03/09/20 25 3 Pre-hiram Flowsheet Flowsheet Date 09/01/2024 Garzon Score Blood Edema Fundus Height Fundus Units Glucose Ketones Leukocytes Nitrite Labor Signs Protein Cervic Dilation Cervic Effacement Cervic Station neg none Type Weight in lbs Pre/Post Dialysis Refused Weight 162.849487710770 BP Diastolic BP Location Tested BP Systolic BP Type 81 L arm 117 sitting Fetus Heart Rate Present A Present Fetus Movement A No Comments Patient presents to hospital for special surgery care. Hx of at 37 weeks, MIL [...] Weight in lbs Pre/Post Dialysis Refused Weight 164.329820846370 BP Diastolic BP Location Tested BP Systolic BP Type 82 L arm 122 sitting Fetus Heart Rate Present A 140 Fetus Movement A No Comments Doing well, no issues. Had a bad headache a few weeks ago. No nausea, cramping or bleeding. NIPT LR, however no call on sex chromosomes. Per [place], will not repeat. Discussed with patient. Other [...] Weight in lbs Pre/Post Dialysis Refused Weight 167.416797593317 BP Diastolic BP Location Tested BP Systolic [...] Weight in lbs Pre/Post Dialysis Refused Weight 176.907304090395 BP Diastolic BP Location Tested BP Systolic [...] Weight in lbs Pre/Post Dialysis Refused Weight 184.705276325379 BP Diastolic BP Location Tested BP Systolic [...] Weight in lbs Pre/Post Dialysis Refused Weight 188.779110970788 BP Diastolic BP Location Tested BP Systolic [...] Type Weight in lbs Pre/Post Dialysis Refused 193.42055572167 BP Diastolic BP Location Tested BP Systolic [...] Type Weight in lbs Pre/Post Dialysis Refused 195.091475035663 BP Diastolic BP Location Tested BP Systolic [...] Type Weight in lbs Pre/Post Dialysis Refused 203.01722785573 BP Diastolic BP Location Tested BP Systolic [...] Weight in lbs Pre/Post Dialysis Refused Weight 199.821486962445 BP Diastolic BP Location Tested BP Systolic [...] Weight in lbs Pre/Post Dialysis Refused Weight 204.537437813848 BP Diastolic BP Location Tested BP Systolic [...] Weight in lbs Pre/Post Dialysis Refused Weight 205.788694492692 BP Diastolic BP Location Tested BP Systolic [...] Weight in lbs Pre/Post Dialysis Refused Weight 208.623091051461 BP Diastolic BP Location Tested BP Systolic [...] Method Maternal HG B and HCT Levels Ob Episode Information Episode Created Date Number of Fetuses Patient Bloodtype Patient rh Status Prepregnancy Weight lbs Domestic Partner Domestic Partner Phone Father Name Charge Authorizer Status 09/02/19 25 1 DELETED Fetus Data First Name Last Name Admitted to NICU Weight (g) Sex Living Outcome Pediatric Complications Fetus ID Race Codes Race Delivery Type [id number] Tino Calculation Initial Tino Date Initial Exam Date Initial Exam Provider Initial Ultrasound Date Last Menstrual Period Date Ultra Sound Weeks Gestation 09/01/2024 0 Eighteen To Twenty Week Tino Update Ultra Sound Date Fundal Height At Umbil Quickening Date Ultra Sound Latest Weeks Gestation Final Tino Confirmed By Final Tino Confirmed Date Final Tino Date Ultra Sound Latest Days Gestation 0 0 Menstrual History Last Menstrual Date Menses Monthly On Bcp Conception Prior Menses Frequency Hcg Plus Date Menarche Onset Age Delivery Information Delivery Date Delivery Type Labor Anesthesia Weeks Gestation Incision Type Labor Labor Length Hrs Delivered By Post Complications Tubal Sterilization Discharge Date Comments Discharge Information Feeding Method Contraceptive Method Maternal HG B and HCT Levels
--- OUTSIDE RECORDS SUMMARY | 2025-03-16 05:07 | XMS_ITS | Encounter Summary ---
Author Organization [facility] Address [address] [facility] [place] [address] Care Team Providers Care Spinner Box Name Role Phone Lynsey Larson RN Unavailable Unavailable Dimitri Almonte MD Primary Care Provider [phone] Stephany Lott MD Unavailable [phone] Reason for Visit * Reason Onset Date Comments MEDICATION REFILL 06/09/2020 Encounter Details Date Type Department Care Team (Late st Contact Info) Description 06/09/2020 Refill [facility] [address] [place] [address] Sofia Langley MD [address] [place] [address] MEDICATION REFILL Social History Tobacco Use Types Packs/Day Years Used Date Smoking Tobacco: Passive Smo ke Exposure - Never Smoker Smokeless Tobacco: Never Alcohol Use Standard Drinks/Week Comments Yes 0 (1 standard drink = 0.6 oz pur e alcohol) occasionally AUDIT-C Answer Date Recorded Q1: How often do you have a drink containing alc ohol? Monthly or less 07/08/2019 Q2: How many drinks containi ng alcohol do you have on a typical day when you are drinking? 1 or 2 07/08/2019 Q3: How often do you have si x or more drinks on one occasion? 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 Live Vaccines (Immunodeficiency) Other Patient is s/p liver transplant and is immunocompromised. Should not have live vaccines. Pended Medication Order: Requested Prescriptions Pending Prescriptions Disp Refills ??? nabumetone (RELAFEN) 750 MG tablet 60 tablet 4 Sig: Take 1 (one) tablet by mouth 2 times daily documented in this encounter Plan of Treatment Upcoming Encounters Date Type Department Care Team (Late st Contact Info) Description 07/15/2025 9:40 AM CDT Office Visit [facility] - Rheumatology [address] [place] [address] [place] [address] Zac Douglas MD [address] [place] [address] [address] [place] [address] 07/31/2025 9:00 AM CDT Office Visit [facility] - GI [address] [place] [address], [place] [address] Mana Rivera PA-C [facility] [address]L [place] [address] documented as of this encounter Goals Goal Patient Goal Type Associated Problems Recent Progress Patient-Stated? Author Medication Management General On track( 025 8:48 AM CDT) No Lynsey Larson, TOMA Note: Expected end date: ongoing Interventions: Take all medications as prescribed Let your doctor know right away about any changes in your medications Make sure to request a refill of your medication at least one week prior to your last dose Safety General On track( 022 9:34 AM CDT) Lynsey Hayes, RN Note: Expected end date: ongoing Interventions: Use appropriate and safe transfer methods Be aware of medications that could predispose you to falling Wear non-skid/rubber sole footwear Use some light at night in your room documented as of this encounter Visit Diagnoses Not on filedocumented in this encounter Care Teams Spinner Box Relationship Specialty Start Date End Date Dimitri Almonte MD [address] [place] [address] PCP - General 09/24/19 Lynsey Lrason, RN Registered Nurse 07/02/18 Stephany Lott MD [address] [place] [address] Physician Obstetrics and Gynecology 11/07/21 documented as of this encounter
--- OUTSIDE RECORDS SUMMARY | 2025-03-16 05:07 | XMS_ITS | Encounter Summary ---
Author Organization [facility] Address [address] [facility] [place] [address] Care Team Providers Care Cafeteria Cook Name Role Phone Lynsey Larson RN Unavailable Unavailable Dimitri Almonte MD Primary Care Provider [phone] Stephany Lott MD Unavailable [phone] Encounter Details Date Type Department Care Team (Late st Contact Info) Description 07/26/2021 Pharmacist Telephone/Documentatio n [facility] [address] [facility], [facility] [place] [address] Rod Monroe MD [address] [place] [address] Social History Tobacco Use Types Packs/Day Years Used Date Smoking Tobacco: Passive Smo ke Exposure - Never Smoker Smokeless Tobacco: Never Alcohol Use Standard Drinks/Week Comments Not Currently 0 (1 standard drink = 0.6 oz [...] more drinks on one occasion? 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 Gender Identity Not on file Sexual Orientation Not on file documented as of this encounter Plan of Treatment Upcoming Encounters Date Type Department Care Team (Late st Contact Info) Description 07/15/2025 9:40 AM CDT Office Visit [facility] - Rheumatology [address] [place] [address], [place] [address] aZc Douglas MD [address] [place] [address] [address] [place] [address] 07/31/2025 9:00 AM CDT Office Visit [facility] - GI [address] [place] [address], [place] [address] Mana Rivera PA-C [facility] [address] [place] [address] documented as of this encounter [...] track( 022 9:34 AM CDT) Lynsey Hayes, TOMA Note: Expected end date: ongoing Interventions: Use appropriate and safe transfer methods Be aware of medications that could predispose you to falling Wear non-skid/rubber sole footwear Use some light at night in your room documented as of this encounter Visit Diagnoses Not on filedocumented in this encounter Care Teams Cafeteria Cook Relationship Specialty Start Date End Date Dimitri Almonte MD [address] [place] [address] PCP - General 09/24/19 Lynsey Larson, RN Registered Nurse 07/02/18 Stephany Lott MD [address] [place] [address] Physician Obstetrics and Gynecology 11/07/21 documented as of this encounter
--- OUTSIDE RECORDS SUMMARY | 2025-03-16 05:07 | XMS_ITS | Continuity of Care Document ---
Author Organization [facility] Address [address] [place] [address] Care Team Providers Care Wheel Assembler Name Role Phone MADRID, BRODERICK Primary Care Provider [phone] Assessment No assessment recorded. Plan of Treatment [...] [facility] [address], [place], [address], 09/08/2024 22:51:39 09/09/19 25 09/08/2024 [UNIT Y] BLAINE ER SCREE N alpha-thalas semia carrier screen NEGATI VE normal Not Available [facility] [address], [place], [address], 09/08/2024 22:51:39 09/09/19 25 09/08/2024 [UNIT Y] BLAINE ER SCREE N cystic fibrosis carrier screen NEGATI VE normal Not Available [facility] [address], [place], [address], 09/08/2024 22:51:39 09/09/19 25 09/08/2024 [UNIT Y] BLAINE [place] spinal muscular atrophy carrier screen NEGATI VE 3 SMN1 copies , SNP not presen t normal Not Available [facility] [address], [place], [address], 09/08/2024 22:51:39 09/09/19 25 09/08/2024 [UNIT Y] BLAINE [place] for detailed report, see pdf See PDF normal Not Available [facility] [address], [place], [address], 09/08/2024 22:51:39 09/13/19 25 09/12/2024 [UNIT Y] ANEUP LOIDY NIPT redraw requested? No normal Not Available [facility] [address], [place], [address], 09/12/2024 00:04:22 09/13/19 25 09/12/2024 [UNIT Y] ANEUP LOIDY NIPT fraction 9.1% normal Not Available [facility] [address], [place], [address], 09/12/2024 00:04:22 09/13/19 25 09/12/2024 [UNIT Y] ANEUP LOIDY NIPT 22Q11.2 microdeletio n LOW RISK <1 in 10,000 normal Not Available [facility] [address], [place], [address], 09/12/2024 00:04:22 09/13/19 25 09/12/2024 [UNIT Y] [...] Available [facility] [address], [place], [address], 09/12/2024 00:04:22 09/13/19 25 09/12/2024 [UNIT Y] ANEUP LOIDY NIPT sex chromosome aneuploidy NO CALL abnormal Not Available [facility] [address], [place], [address], 09/12/2024 00:04:22 09/13/19 25 09/12/2024 [UNIT Y] ANEUP LOIDY NIPT monosomy X NO CALL abnormal Not Available [facility] [address], [place], [address], 09/12/2024 00:04:22 09/13/19 25 09/12/2024 [UNIT Y] ANEUP LOIDY NIPT trisomy 13 LOW RISK <1 in 10,000 normal Not Available [facility] [address], [place], [address], 09/12/2024 00:04:22 09/13/19 25 09/12/2024 [UNIT Y] ANEUP LOIDY NIPT trisomy 18 LOW RISK <1 in 10,000 normal Not Available [facility] [address], [place], [address], 09/12/2024 00:04:22 09/13/19 25 09/12/2024 [UNIT Y] ANEUP LOIDY NIPT trisomy 21 LOW RISK <1 in 10,000 normal Not Available [facility] [address], [place], [address], 09/12/2024 00:04:22 09/13/19 25 09/12/2024 [UNIT Y] ANEUP LOIDY NIPT sex N/A abnormal Not Available [facility] [address], [place], [address], 09/12/2024 00:04:22 09/13/19 25 09/12/2024 [UNIT Y] ANEUP LOIDY NIPT gestation SINGLE TON normal Not Available [facility] [address], [place], [address], 09/12/2024 00:04:22 09/13/19 25 09/12/2024 [UNIT Y] ANEUP LOIDY NIPT for detailed report, see pdf See PDF normal Not Available [facility] [address], [place], [address], 09/12/2024 00:04:22 09/02/19 25 09/01/2024 CBC W/DIF F WBC 11.5 10'3/ uL 3.5-10 .5 high Not Available [facility] (Lab) [address] , [place], [address], 09/02/2024 13:48:30 09/02/19 25 09/01/2024 CBC W/DIF F RBC 4.99 10'6/ uL (based on docume nted legal sex) 3.80-5 .20 Not Available [facility] (Lab) [address] , [place], [address], 09/02/2024 13:48:30 09/02/19 25 09/01/2024 CBC W/DIF F HGB 14.4 g/dL (based on docume nted legal sex) 11.6-1 5.4 Not Available [facility] (Lab) [address] , [place], [address], 09/02/2024 13:48:30 09/02/19 25 09/01/2024 CBC W/DIF F HCT 42.5 % (based on docume nted legal sex) 34.0-4 5.0 Not Available [facility] (Lab) [address], [place], [address], 09/02/2024 13:48:30 09/02/19 25 09/01/2024 CBC W/DIF F MCV 85.2 fL 80.0-9 9.0 Not Available [facility] (Lab) [address], [place], [address], 09/02/2024 13:48:30 09/02/19 25 09/01/2024 CBC W/DIF F MCH 28.9 pg 27.0-3 4.0 Not Available [facility] (Lab) [address], [place], [address], 09/02/2024 13:48:30 09/02/19 25 09/01/2024 CBC W/DIF F MCHC 33.9 g/dL 32.0-3 5.5 Not Available [facility] (Lab) [address], [place], [address], 09/02/2024 13:48:30 09/02/19 25 09/01/2024 CBC W/DIF F RDW 13.2 % 11.0-1 5.0 Not Available [facility] (Lab) [address], [place], [address], 09/02/2024 13:48:30 09/02/19 25 09/01/2024 CBC W/DIF F plt 208 10'3/ uL 150-40 0 Not Available [facility] (Lab) [address], [place], [address], 09/02/2024 13:48:30 09/02/19 25 09/01/2024 CBC W/DIF F MPV 12.3 fL 8.8-12 .1 high Not Available [facility] (Lab) [address], [place], [address], 09/02/2024 13:48:30 09/02/19 25 09/01/2024 CBC W/DIF F NRBC's 0.0 % 0.0 Not Available [facility] (Lab) [address] [place], [address], 09/02/2024 13:48:30 09/02/19 25 09/01/2024 CBC W/DIF F absolute NRBCs 0.0 10'3/ uL no refere nce range establ ished Not Available [facility] (Lab) [address], [place], [address], 09/02/2024 13:48:30 09/02/19 25 09/01/2024 CBC W/DIF F neutrophils 70.5 % 34.0-7 3.0 Not Available [facility] (Lab) [address], [place], [address], 09/02/2024 13:48:30 09/02/19 25 09/01/2024 CBC W/DIF F lymphocytes 21.9 % 15.0-5 0.0 Not Available [facility] (Lab) [address], [place], [address], 09/02/2024 13:48:30 09/02/19 25 09/01/2024 CBC W/DIF F monocytes 5.8 % 1.0-15 .0 Not Available [facility] (Lab) [address], [place], [address], 09/02/2024 13:48:30 09/02/19 25 09/01/2024 CBC W/DIF F eosinophils 1.3 % 0.0-8. 0 Not Available [facility] (Lab) [address] [place], [address], 09/02/2024 13:48:30 09/02/19 25 09/01/2024 CBC W/DIF F basophils 0.2 % 0.0-2. 0 Not Available [facility] (Lab) [address] [place], [address], 09/02/2024 13:48:30 09/02/19 25 09/01/2024 CBC W/DIF [...] separ ately if prese nt. Not Available [facility] (Lab) [address], [place], [address], 09/02/2024 13:48:30 09/02/19 25 09/01/2024 CBC W/DIF F absolute neutrophils 8.1 10'3/ uL 1.5-8. 0 high Not Available [facility] (Lab) [address], [place], [address], 09/02/2024 13:48:30 09/02/19 25 09/01/2024 CBC W/DIF F absolute lymphocytes 2.5 10'3/ uL 1.0-4. 0 Not Available [facility] (Lab) [address], [place], [address], 09/02/2024 13:48:30 09/02/19 25 09/01/2024 CBC W/DIF F absolute monocytes 0.7 10'3/ uL 0.2-1. 0 Not Available [facility] (Lab) [address], [place], [address], 09/02/2024 13:48:30 09/02/19 25 09/01/2024 CBC W/DIF F absolute eosinophils 0.2 10'3/ uL 0.0-0. 6 Not Available [facility] (Lab) [address], [place], [address], 09/02/2024 13:48:30 09/02/19 25 09/01/2024 CBC W/DIF F absolute basophils 0.0 10'3/ uL 0.0-0. 3 Not Available [facility] (Lab) [address], [place], [address], 09/02/2024 13:48:30 09/02/19 25 09/01/2024 CBC W/DIF [...] benand book. nm.or g/gen derx Not Available [facility] (Lab) [address], [place], [address], 09/02/2024 13:48:30 09/02/19 25 09/01/2024 TYPE/ RH/SC REEN ABO/Rh type O NEG Not Available [facility] (Lab) [address], [place], [address], 09/02/2024 13:48:30 09/02/19 25 09/01/2024 TYPE/ RH/SC REEN antibody screen NEG Not Available [facility] (Lab) [address], [place], [address], 09/02/2024 13:48:30 09/02/19 25 09/01/2024 TYPE/ RH/SC REEN exp date 2024 23:59 Not Available [facility] (Lab) [address] [place], [address], 09/02/2024 13:48:30 09/02/1909/01/2024 HIV 1/2 ANTIG EN/AN TIBOD Y, REFLE X CONFI RMATI ON HIV antigen/anti body Nonrea ctive nonrea ctive HIV-1 antig en and HIV-1 /HIV- 2 antib odies were not detec edouard. No labor atory evide nce of HIV infec tion. Not Available [facility] (Lab) [address], [place], [address], 09/02/2024 13:48:31 09/02/19 25 09/01/2024 HEPAT ITIS B SURFA CE ANTIG EN hepatitis B surface antigen Non-re active non-re active This assay was perfo rmed using [employer] n reage nts and test kits. Value s obtai blaine with other assay metho ds or kits canno t be used inter stover eably . Not Available [facility] (Lab) [address], [place], [address], 09/02/2024 13:48:31 09/02/19 25 09/01/2024 HEPAT ITIS C ANTIB MARV SCREE N, REFLE X TO CONFI RMATI ON hepatitis C antibody Non-re active non-re active Antib odies to HCV Not Detec edouard, does not exclu de the possi bilit y of expos ure to HCV. Not Available [facility] (Lab) [address], [place], [address], 09/02/2024 13:48:31 09/02/19 25 09/01/2024 RUBEL LA IGG ANTIB MARV, QUANT rubella antibodies, IgG Reacti ve reacti ve Not Available [facility] (Lab) [address] [place], [address], 09/02/2024 13:48:32 09/02/19 25 09/01/2024 RUBEL LA IGG ANTIB MARV, QUANT rubella antibodies, IgG quant 12.2 IU/mL >=10 Non-r eacti ve (Non- Immun e) <10 IU/mL React nkechi (Immu ne) > or = 10 IU/mL Not Available [facility] (Lab) [address] [place], [address], 09/02/2024 13:48:32 09/02/19 25 09/01/2024 RPR SCREE N, REFLE X TITER /CONF IRMAT ION RPR qualitative Nonrea ctive nonrea ctive Not Available [facility] (Lab) [address] [place], [address], 09/02/2024 13:48:32 09/02/19 25 09/01/2024 HEMOG LOBIN [...] >8.0% Actio n sugge sted Not Available [facility] (Lab) [address], [place], [address], 09/02/2024 13:48:32 09/02/1909/01/2024 CULTU RE: URINE result report SEE RESULT S BELOW Test: Cultu re: Urine Speci men Sourc e: Urine Voide d Speci men Type: Urine Speci men Date: 025 1116 Resul t Date: 2024 Resul t Statu s: Final resul t Abnor mal: No Resul ting Lab: [facility] [address] [facility] [address] Tel: CULTU RE ----- ----- ----- --- No growt h in 1 day (dete ction level of 10,00 0 colon ies / ml.) Not Available [facility] (Lab) [address], [place], [address], 09/02/2024 21:37:00 09/02/19 25 09/01/2024 drug scree n, urine Amphetamines : negati ve Not Available [facility] [address], [place], [address], 09/01/2024 11:12:32 09/02/19 25 09/01/2024 drug scree n, urine Cannabinoids : negati ve Not Available [facility] [address], [place], [address], 09/01/2024 11:12:32 09/02/19 25 09/01/2024 drug scree n, urine Cocaine: negati ve Not Available [facility] [address], [place], [address], 09/01/2024 11:12:32 09/02/19 25 09/01/2024 drug scree n, urine Opiates: negati ve Not Available [facility] [address], [place], [address], 09/01/2024 11:12:32 09/02/19 25 09/01/2024 drug scree n, urine Phenocyclidi ne: negati ve Not Available [facility] [address], [place], [address], 09/01/2024 11:12:32 09/02/19 25 09/01/2024 drug scree n, urine Barbiturates : negati ve Not Available [facility] [address], [place], [address], 09/01/2024 11:12:32 09/02/19 25 09/01/2024 drug scree n, urine Benzodiazepi loan: negati ve Not Available [facility] [address], [place], [address], 09/01/2024 11:12:32 09/02/19 25 09/01/2024 drug scree n, urine Ethanol: negati ve Not Available [facility] [address], [place], [address], 09/01/2024 11:12:32 09/02/19 25 09/01/2024 drug scree n, urine Hallucinogen s: negati ve Not Available [facility] [address], [place], [address], 09/01/2024 11:12:32 09/02/19 25 09/01/2024 drug scree n, urine Inhalants: negati ve Not Available [facility] [address], [place], [address], 09/01/2024 11:12:32 09/02/19 25 09/01/2024 drug scree n, urine Anabolic Steroids: negati ve Not Available [facility] [address], [place], [address], 09/01/2024 11:12:32 09/02/19 25 09/01/2024 drug scree n, urine Other: negati ve Not Available [facility] [address], [place], [address], 09/01/2024 11:12:32 02/11/20 25 02/10/2025 CULTU RE: [...] t Abnor mal: Yes Resul ting Lab: [facility] [address] [facility] [address] Tel: CULTU RE ----- ----- ----- --- Posit nkechi for Strep tococ cus agala ctiae (Grou p B) (Abno rmal) Clind amyci n susce ptibl e, eryth romyc in resis tant. The clind amyci n induc tion test (D-t est) is negat nkechi, there fore clind amyci n shoul d be clini natasha effec tive again st this isola te. Not Available [facility] (Lab) [address], [place], [address], 02/14/2025 16:16:12 09/02/19 25 09/01/2024 US, obste tric, nucha l trans lucen cy No observ ation record ed. [facility] [address], [place], [address], 09/01/2024 18:48:24 09/02/19 25 09/01/2024 US, obste tric, nucha l trans lucen cy No observ ation record ed. [email or web address] [address], [place], [address], 09/02/2024 11:29:46 10/29/19 25 10/28/2024 US, obste tric, 2nd or 3rd trime ster No observ ation record ed. [facility] [address], [place], [address], 10/28/2024 18:24:58 10/29/19 25 10/28/2024 US, obste tric, 2nd or 3rd trime ster No observ ation record ed. [email or web address] [address], [place], [address], 10/28/2024 22:59:36 01/14/20 25 01/13/2025 US, obste tric, follo w-up No observ ation record ed. ELIE [address], [place], [address], 01/16/2025 19:25:04 01/14/20 25 01/13/2025 US, obste tric, follo w-up No observ ation record ed. [email or web address] [facility] [address], [place], [address], 01/13/2025 17:54:59 Result Notes None recorded. Problems Name Problem SNOMED Code Status Onset Date Resolution Date Notes Provider Name and Address Organization Details Recorded Time 79979506 Active 2024 ISRAEL Nettles bryant, [facility] 10:27:09 Rheumatoi d arthritis 16463155 Active 2024 previously on Juliette DELCID MD [address], [place], [address], [facility] 5 16:24:19 Problem Notes None recorded. Procedures Surgical History Date Name Laterality Status Provider Name and Address Organization Details Recorded Time 03/26/19 22 Date of Last Pap Smear completed [facility] 08/11/2024 16:48:19 10/02/18 97 transplantation of liver completed Deena [facility] 08/11/2024 16:51:12 Imaging Results None recorded. [...] Not Available Not Avai lable Not Available Eyota 3 Fish Oil 08/11 completed Not Available Not Available Not Available Humira 08/11 completed Not Available Not Available Not Available Probiotic active Not Available Not Ruth ilable Not Available Vitals Date Recorded Body height Body mass index (BMI) Body weight Systolic And Diastolic Provider Name and Address Organization Details Last Updated DateTime 03/02/2025 160.02 cm 36.3 kg/m2 98999.44 g 133/80 mm[Hg] KARLA HARMONY [facility] 03/02/2025 10:57:23 Social History Question Answer Notes LastModified by [...] Or The Highest Degree You Have Received? DI55169-1 Information not available 08/11/2024 Are There Any [...] anxious, or unable to sleep at night)? [id number] Information not available 08/11/2024 Family History Relationship [...] ICD10 Code Diagnosis IMO Codes Diagnosis Note [id number] WINIFRED DELCID MD [facility] [address],[place] [address] 02/10/2025 13:52:17 02/10/2025 14:38:34 care status 305204261 Z34.83 75473512 024010 Sloan Talamantes MD [facility] [address],[place] [address] 02/16/2025 16:03:00 02/16/2025 17:10:08 care status 915561206 Z34.83 [id number] 747475 Sloan Talamantes MD [facility] [address],[place] [address] 02/26/2025 15:55:13 02/26/2025 17:21:51 care status 197920613 Z34.83 [id number] WINIFRED DELCID MD [facility] [address],[place] [address] 03/02/2025 10:48:18 03/02/2025 11:16:34 care status 610826147 Z34.83 [id number] Health Concerns Section Related Observation LastModified by Organization Detai ls LastModified Time None Recorded Concern Status LastModified by Organization Details LastModified Time None Recorded Payers Encounter Date Sequence Insurance Name Policy Number Policy Meredith Covered Member ID Meredith Member ID Guarantor Name 03/02/2025 1 [facility] [id number] Stefanie Cortes [id number] Stefanie Cortes Notes Date Note Type Note Provider Name and Address Organization Details Recorded Time 03/02/2025 text/html Generic HPI TemplateReported by Patient WINIFRED DELCID MD [address], [place], [address], [facility] 03/02/2025 11:16:25 OBGyn Episode Ob Episode Information Episode Created Date Number of Fetuses Patient Bloodtype Patient rh Status Prepregnancy Weight lbs Domestic Partner Domestic Partner Phone Father Name Fiction And Nonfiction Writer Prose Status 09/02/19 25 1 O Negative OPEN Fetus Data First Name Last Name Admitted to NICU Weight (g) Sex Living Outcome Pediatric Complications Fetus ID Race Codes Race Delivery Type [id number] Problems Problem Notes Problem Name Start Date End Date Resolution Snomed Code Not e Rheumatoid arthritis 12/16/2024 97123233 previously on Humira Tino Calculation Initial Tino [...] Sound Latest Days Gestation 10/29/19 25 21 09/01/2024 03/09/20 25 3 Pre-hiram Flowsheet Flowsheet Date 09/01/2024 Garzon Score Blood Edema Fundus Height Fundus Units Glucose Ketones Leukocytes Nitrite Labor Signs Protein Cervic Dilation Cervic Effacement Cervic Station neg none Type Weight in lbs Pre/Post Dialysis Refused Weight 162.428210411079 BP Diastolic BP Location Tested BP Systolic BP Type 81 L arm 117 sitting Fetus Heart Rate Present A Present Fetus Movement A No Comments Patient presents to [facility] care. Hx of at 37 weeks, MIL [...] Weight in lbs Pre/Post Dialysis Refused Weight 164.831832181213 BP Diastolic BP Location Tested BP Systolic BP Type 82 L arm 122 sitting Fetus Heart Rate Present A 140 Fetus Movement A No Comments Doing well, no issues. Had a bad headache a few weeks ago. No nausea, cramping or bleeding. NIPT LR, however no call on sex chromosomes. Per Gird[place]ree, will not repeat. Discussed with patient. Other [...] Weight in lbs Pre/Post Dialysis Refused Weight 167.532637164916 BP Diastolic BP Location Tested BP Systolic [...] Weight in lbs Pre/Post Dialysis Refused Weight 176.714268311280 BP Diastolic BP Location Tested BP Systolic [...] Weight in lbs Pre/Post Dialysis Refused Weight 184.950143420446 BP Diastolic BP Location Tested BP Systolic [...] Weight in lbs Pre/Post Dialysis Refused Weight 188.888200191169 BP Diastolic BP Location Tested BP Systolic [...] Type Weight in lbs Pre/Post Dialysis Refused 193.92794087377 BP Diastolic BP Location Tested BP Systolic [...] Type Weight in lbs Pre/Post Dialysis Refused 195.234026182782 BP Diastolic BP Location Tested BP Systolic [...] Type Weight in lbs Pre/Post Dialysis Refused 203.56117600665 BP Diastolic BP Location Tested BP Systolic [...] Weight in lbs Pre/Post Dialysis Refused Weight 199.191198884757 BP Diastolic BP Location Tested BP Systolic [...] Weight in lbs Pre/Post Dialysis Refused Weight 204.069820553189 BP Diastolic BP Location Tested BP Systolic [...] Weight in lbs Pre/Post Dialysis Refused Weight 205.871281399419 BP Diastolic BP Location Tested BP Systolic [...] Weight in lbs Pre/Post Dialysis Refused Weight 208.133309773852 BP Diastolic BP Location Tested BP Systolic [...]
--- OUTSIDE RECORDS SUMMARY | 2025-03-16 05:07 | XMS_ITS ---
Author Organization [facility] Address [address] [place] [address] Care Team Providers Care Aviation Maintenance Technician Name Role Phone Lynsey Larson RN Unavailable Unavailable Dimitri Almonte MD Primary Care Provider [phone] Stephany Lott MD Unavailable [phone] Transplant Episode Liver Candidate [facility], [place] Referred on 10/03/1996 Marked as Active on 10/03/1996 Liver CoordinatorLynsey Larson RN Phone: N/A Fax: N/A Email: N/A Care Team Name Role Phone Fax Email Lynsey Larson RN Liver Coordinator N/A N/A N/A Events Pre-Transplant Referred: 10/03/1996
--- OUTSIDE RECORDS SUMMARY | 2025-03-16 05:07 | XMS_ITS | Continuity of Care Document ---
Author Organization [facility], [facility] Address [address] [place] [address] Care Team Providers Care Communication Manager Name Role Phone BRODERICK MADRID Primary Care Provider Assessment Encounter Date Assessment Date Assessment LastModified by Organization Details LastModified Time 02/26/2025 02/26/2025 Patient is ___weeks . Discussed [...] Abnormal Flag Note LastModifiedBy Organization Detail LastModifiedTime 09/09/1909/08/2024 [UNIT Y] BLAINE ER SCREE N sickle cell disease/beta -thalassemia /hemoglobino pathies carrier screen NEGATI VE normal Not Available [facility] [address], [place], [address], 09/08/2024 22:51:39 09/09/19 25 09/08/2024 [UNIT Y] BLAINE ER SCREE N alpha-thalas semia carrier screen NEGATI VE normal Not Available [facility] [address], [place], [address], 09/08/2024 22:51:39 09/09/19 25 09/08/2024 [UNIT Y] BLAINE [place] cystic fibrosis carrier screen NEGATI VE normal Not Available [facility] [address], [place], [address], 09/08/2024 22:51:39 09/09/19 25 09/08/2024 [UNIT Y] BLAINE [place] spinal muscular atrophy carrier screen NEGATI VE 3 SMN1 copies , SNP not presen t normal Not Available [facility] [address], [place], [address], 09/08/2024 22:51:39 09/09/19 25 09/08/2024 [UNIT Y] BLAINE MICHEAL [place] for detailed report, see pdf See PDF normal Not Available [facility] [address], [place], [address], 09/08/2024 22:51:39 09/13/19 25 09/12/2024 [UNIT Y] ANEUP LOIDY NIPT redraw requested? No normal Not Available [facility] [address], [place], [address], 09/12/2024 00:04:22 09/13/19 25 09/12/2024 [UNIT Y] ANEUP LOIDY NIPT fraction 9.1% normal Not Available [facility] [address], [place], [address], 09/12/2024 00:04:22 09/13/19 25 09/12/2024 [UNIT Y] ANEUP LOIDY NIPT 22Q11.2 microdeletio n LOW RISK <1 in 10,000 normal Not Available [facility] [address], [place], [address], 09/12/2024 00:04:22 09/13/19 25 09/12/2024 [UNIT Y] [...] loidy . Not Available [facility] [address], [place], [address], 09/12/2024 00:04:22 09/13/19 25 09/12/2024 [UNIT Y] ANEUP LOIDY NIPT sex chromosome aneuploidy NO CALL abnormal Not Available [facility] [address], [place], [address], 09/12/2024 00:04:22 09/13/19 25 09/12/2024 [UNIT Y] ANEUP LOIDY NIPT monosomy X NO CALL abnormal Not Available [facility] [address], [place], [address], 09/12/2024 00:04:22 09/13/19 25 09/12/2024 [UNIT Y] ANEUP LOIDY NIPT trisomy 13 LOW RISK <1 in 10,000 normal Not Available [facility] [address], [place], [address], 09/12/2024 00:04:22 09/13/19 25 09/12/2024 [UNIT Y] ANEUP LOIDY NIPT trisomy 18 LOW RISK <1 in 10,000 normal Not Available [facility] [address], [place], [address], 09/12/2024 00:04:22 09/13/19 25 09/12/2024 [UNIT Y] ANEUP LOIDY NIPT trisomy 21 LOW RISK <1 in 10,000 normal Not Available [facility] [address], [place], [address], 09/12/2024 00:04:22 09/13/19 25 09/12/2024 [UNIT Y] ANEUP LOIDY NIPT sex N/A abnormal Not Available [facility] [address], [place], [address], 09/12/2024 00:04:22 09/13/19 25 09/12/2024 [UNIT Y] ANEUP LOIDY NIPT gestation SINGLE TON normal Not Available [facility] [address], [place], [address], 09/12/2024 00:04:22 09/13/19 25 09/12/2024 [UNIT Y] ANEUP LOIDY NIPT for detailed report, see pdf See PDF normal Not Available [facility] [address], [place], [address], 09/12/2024 00:04:22 09/02/19 25 09/01/2024 CBC W/DIF F WBC 11.5 10'3/ uL 3.5-10 .5 high Not Available [facility] (Lab) [address], [place], [address], 09/02/2024 13:48:30 09/02/19 25 09/01/2024 CBC W/DIF F RBC 4.99 10'6/ uL (based on docume nted legal sex) 3.80-5 .20 Not Available [facility] (Lab) [address] [place], [address], 09/02/2024 13:48:30 09/02/19 25 09/01/2024 CBC W/DIF F HGB 14.4 g/dL (based on docume nted legal sex) 11.6-1 5.4 Not Available [facility] (Lab) [address] [place], [address], 09/02/2024 13:48:30 09/02/19 25 09/01/2024 CBC W/DIF F HCT 42.5 % (based on docume nted legal sex) 34.0-4 5.0 Not Available [facility] (Lab) [address], [place], [address], 09/02/2024 13:48:30 09/02/19 25 09/01/2024 CBC W/DIF F MCV 85.2 fL 80.0-9 9.0 Not Available [facility] (Lab) [address], [place], [address], 09/02/2024 13:48:30 09/02/19 25 09/01/2024 CBC W/DIF F MCH 28.9 pg 27.0-3 4.0 Not Available [facility] (Lab) [address], [place], [address], 09/02/2024 13:48:30 09/02/19 25 09/01/2024 CBC W/DIF F MCHC 33.9 g/dL 32.0-3 5.5 Not Available [facility] (Lab) [address], [place], [address], 09/02/2024 13:48:30 09/02/19 25 09/01/2024 CBC W/DIF F RDW 13.2 % 11.0-1 5.0 Not Available [facility] (Lab) [address], [place], [address], 09/02/2024 13:48:30 09/02/19 25 09/01/2024 CBC W/DIF F plt 208 10'3/ uL 150-40 0 Not Available [facility] (Lab) [address], [place], [address], 09/02/2024 13:48:30 09/02/19 25 09/01/2024 CBC W/DIF F MPV 12.3 fL 8.8-12 .1 high Not Available [facility] (Lab) [address] [facility], [place], [address], 09/02/2024 13:48:30 09/02/19 25 09/01/2024 CBC W/DIF F NRBC's 0.0 % 0.0 Not Available [facility] (Lab) [address] [facility], [place], [address], 09/02/2024 13:48:30 09/02/19 25 09/01/2024 CBC W/DIF F absolute NRBCs 0.0 10'3/ uL no refere nce range establ ished Not Available [facility] (Lab) [address], [place], [address], 09/02/2024 13:48:30 09/02/19 25 09/01/2024 CBC W/DIF F neutrophils 70.5 % 34.0-7 3.0 Not Available [facility] (Lab) [address] [facility], [place], [address], 09/02/2024 13:48:30 09/02/19 25 09/01/2024 CBC W/DIF F lymphocytes 21.9 % 15.0-5 0.0 Not Available [facility] (Lab) [address] [facility], [place], [address], 09/02/2024 13:48:30 09/02/19 25 09/01/2024 CBC W/DIF F monocytes 5.8 % 1.0-15 .0 Not Available [facility] (Lab) [address] [facility], [place], [address], 09/02/2024 13:48:30 09/02/19 25 09/01/2024 CBC W/DIF F eosinophils 1.3 % 0.0-8. 0 Not Available [facility] (Lab) [address], [place], [address], 09/02/2024 13:48:30 09/02/19 25 09/01/2024 CBC W/DIF F basophils 0.2 % 0.0-2. 0 Not Available [facility] (Lab) [address] [place], [address], 09/02/2024 13:48:30 09/02/19 25 09/01/2024 CBC W/DIF [...] separ ately if prese nt. Not Available [facility] (Lab) [address], [place], [address], 09/02/2024 13:48:30 09/02/19 25 09/01/2024 CBC W/DIF F absolute neutrophils 8.1 10'3/ uL 1.5-8. 0 high Not Available [facility] (Lab) [address], [place], [address], 09/02/2024 13:48:30 09/02/19 25 09/01/2024 CBC W/DIF F absolute lymphocytes 2.5 10'3/ uL 1.0-4. 0 Not Available [facility] (Lab) [address] [facility], [place], [address], 09/02/2024 13:48:30 09/02/19 25 09/01/2024 CBC W/DIF F absolute monocytes 0.7 10'3/ uL 0.2-1. 0 Not Available [facility] (Lab) [address] [facility], [place], [address], 09/02/2024 13:48:30 09/02/19 25 09/01/2024 CBC W/DIF F absolute eosinophils 0.2 10'3/ uL 0.0-0. 6 Not Available [facility] (Lab) [address] [facility], [place], [address], 09/02/2024 13:48:30 09/02/19 25 09/01/2024 CBC W/DIF F absolute basophils 0.0 10'3/ uL 0.0-0. 3 Not Available [facility] (Lab) [address] [place], [address], 09/02/2024 13:48:30 09/02/19 25 09/01/2024 CBC W/DIF F absolute immature granulocytes 0.0 10'3/ uL 0.00-0 .10 Refer ence range s for nonbi nary/ inter sex or unspe cifie d gende r patie nts have not been estab lishe d. Pleas e refer to the follo wing table for range s estab lishe d for cisge nder patie nts and evalu ate in the clini [facility] xt of the indiv idual patie nt: https ://ange steiner book. nm.or g/gen derx Not Available [facility] (Lab) [address], [place], [address], 09/02/2024 13:48:30 09/02/19 25 09/01/2024 TYPE/ RH/SC REEN ABO/Rh type O NEG Not Available [facility] (Lab) [address] [place], [address], 09/02/2024 13:48:30 09/02/19 25 09/01/2024 TYPE/ RH/SC REEN antibody screen NEG Not Available [facility] (Lab) [address] [place], [address], 09/02/2024 13:48:30 09/02/19 25 09/01/2024 TYPE/ RH/SC REEN exp date 2024 23:59 Not Available [facility] (Lab) [address] [place], [address], 09/02/2024 13:48:30 09/02/19 25 09/01/2024 HIV 1/2 ANTIG EN/AN TIBOD Y, REFLE X CONFI RMATI ON HIV antigen/anti body Nonrea ctive nonrea ctive HIV-1 antig en and HIV-1 /HIV- 2 antib odies were not detec edouard. No labor atory evide nce of HIV infec tion. Not Available [facility] (Lab) [address], [place], [address], 09/02/2024 13:48:31 09/02/1909/01/2024 HEPAT ITIS B SURFA CE ANTIG EN hepatitis B surface antigen Non-re active non-re active This assay was perfo rmed using [employer] ratio n reage nts and test kits. Value s obtai blaine with other assay metho ds or kits canno t be used inter stover eably . Not Available [facility] (Lab) [address], [place], [address], 09/02/2024 13:48:31 09/02/1909/01/2024 HEPAT ITIS C ANTIB MARV SCREE N, REFLE X TO CONFI RMATI ON hepatitis C antibody Non-re active non-re active Antib odies to HCV Not Detec edouard, does not exclu de the possi bilit y of expos ure to HCV. Not Available [facility] (Lab) [address], [place], [address], 09/02/2024 13:48:31 09/02/19 25 09/01/2024 RUBEL LA IGG ANTIB MARV, QUANT rubella antibodies, IgG Reacti ve reacti ve Not Available [facility] (Lab) [address] [place], [address], 09/02/2024 13:48:32 09/02/19 25 09/01/2024 RUBEL LA IGG ANTIB MARV, QUANT rubella antibodies, IgG quant 12.2 IU/mL >=10 Non-r eacti ve (Non- Immun e) <10 IU/mL React nkechi (Immu ne) > or = 10 IU/mL Not Available [facility] (Lab) [address] [place], [address], 09/02/2024 13:48:32 09/02/19 25 09/01/2024 RPR SCREE N, REFLE X TITER /CONF IRMAT ION RPR qualitative Nonrea ctive nonrea ctive Not Available [facility] (Lab) [address], [place], [address], 09/02/2024 13:48:32 09/02/1909/01/2024 HEMOG LOBIN A1C hemoglobin A1C 4.6 % [...] >8.0% Actio n sugge sted Not Available [facility] (Lab) [address], [place], [address], 09/02/2024 13:48:32 09/02/1909/01/2024 CULTU RE: URINE result report SEE RESULT S BELOW Test: Cultu re: Urine Speci men Sourc e: Urine Voide d Speci men Type: Urine Speci men Date: 025 1116 Resul t Date: 2024 Resul t Statu s: Final resul t Abnor mal: No Resul ting Lab: [facility] [address] [facility] [address] Tel: CULTU RE ----- ----- ----- --- No growt h in 1 day (dete ction level of 10,00 0 colon ies / ml.) Not Available [facility] (Lab) [address], [place], [address], 09/02/2024 21:37:00 09/02/1909/01/2024 drug scree n, urine Amphetamines : negati ve Not Available [place] [address], [place], [address], 09/01/2024 11:12:32 09/02/19 25 09/01/2024 drug scree n, urine Cannabinoids : negati ve Not Available [place] [address], [place], [address], 09/01/2024 11:12:32 09/02/19 25 09/01/2024 drug scree n, urine Cocaine: negati ve Not Available [place] [address], [place], [address], 09/01/2024 11:12:32 09/02/19 25 09/01/2024 drug scree n, urine Opiates: negati ve Not Available [place] [address], [place], [address], 09/01/2024 11:12:32 09/02/19 25 09/01/2024 drug scree n, urine Phenocyclidi ne: negati ve Not Available [place] [address], [place], [address], 09/01/2024 11:12:32 09/02/19 25 09/01/2024 drug scree n, urine Barbiturates : negati ve Not Available [place] [address], [place], [address], 09/01/2024 11:12:32 09/02/19 25 09/01/2024 drug scree n, urine Benzodiazepi loan: negati ve Not Available [place] [address], [place], [address], 09/01/2024 11:12:32 09/02/19 25 09/01/2024 drug scree n, urine Ethanol: negati ve Not Available [place] [address], [place], [address], 09/01/2024 11:12:32 09/02/19 25 09/01/2024 drug scree n, urine Hallucinogen s: negati ve Not Available [place] [address], [place], [address], 09/01/2024 11:12:32 09/02/19 25 09/01/2024 drug scree n, urine Inhalants: negati ve Not Available [place] [address], [place], [address], 09/01/2024 11:12:32 09/02/19 25 09/01/2024 drug scree n, urine Anabolic Steroids: negati ve Not Available [place] [address], [place], [address], 09/01/2024 11:12:32 09/02/19 25 09/01/2024 drug scree n, urine Other: negati ve Not Available [place] [address], [place], [address], 09/01/2024 11:12:32 02/11/20 25 02/10/2025 CULTU RE: [...] t Abnor mal: Yes Resul ting Lab: [facility] [address] [facility] [address] Tel: CULTU RE ----- ----- ----- --- Posit nkechi for Strep tococ cus agala ctiae (Grou p B) (Abno rmal) Clind amyci n susce ptibl e, eryth romyc in resis tant. The clind amyci n induc tion test (D-t est) is negat nkechi, there fore clind amyci n shoul d be clini natasha effec tive again st this isola te. Not Available [facility] (Lab) [address], [place], [address], 02/14/2025 16:16:12 09/02/19 25 09/01/2024 US, obste tric, nucha l trans lucen cy No observ ation record ed. [facility] [address], [place], [address], 09/01/2024 18:48:24 09/02/19 25 09/01/2024 US, obste tric, nucha l trans lucen cy No observ ation record ed. [facility] [address], [place], [address], 09/02/2024 11:29:46 10/29/19 25 10/28/2024 US, obste tric, 2nd or 3rd trime ster No observ ation record ed. [facility] [address], [place], [address], 10/28/2024 18:24:58 10/29/19 25 10/28/2024 US, obste tric, 2nd or 3rd trime ster No observ ation record ed. [facility] [address], [place], [address], 10/28/2024 22:59:36 01/14/20 25 01/13/2025 US, obste tric, follo w-up No observ ation record ed. ELIE [facility] [address], [place], [address], 01/16/2025 19:25:04 01/14/20 25 01/13/2025 US, obste tric, follo w-up No observ ation record ed. [email or web address] [place] [address], [place], [address], 01/13/2025 17:54:59 Result Notes None recorded. Problems Name Problem SNOMED Code Status Onset Date Resolution Date Notes Provider Name and Address Organization Details Recorded Time 79360143 Active 2024 ISRAEL Yoon hurtado, [facility] 10:27:09 Rheumatoi d arthritis 51939244 Active 2024 previously on Juliette DELCID MD [address], [place], [address], [facility] 16:24:19 Problem Notes None recorded. Procedures Surgical History Date Name Laterality Status Provider Name and Address Organization Details Recorded Time 03/26/19 22 Date of Last Pap Smear completed Deena Louise [facility] 08/11/2024 16:48:19 10/02/18 97 transplantation of liver completed Deena Louise [facility] 08/11/2024 16:51:12 Imaging Results None recorded. [...] Not Available Not Avai lable Not Available Hodge 3 Fish Oil 08/11 completed Not Available Not Available Not Available Humira 08/11 completed Not Available Not Available Not Available Probiotic active Not Available Not Ruth ilable Not Available Vitals Date Recorded Body height Body mass index (BMI) Body weight Systolic And Diastolic Provider Name and Address Organization Details Last Updated DateTime 02/26/2025 160.02 cm 36.1 kg/m2 04457.84 g 119/77 mm[Hg] Deena Louise [place] - [facility] 02/26/2025 16:33:21 Social History Question Answer Notes LastModified by [...] Or The Highest Degree You Have Received? MR84929-3 Information not available 08/11/2024 Are There Any [...] anxious, or unable to sleep at night)? [id number] Information not available 08/11/2024 Family History Relationship [...] ICD10 Code Diagnosis IMO Codes Diagnosis Note [id number] WINIFRED DELCID MD [place] [address],[place] [address] 01/27/2025 16:31:09 01/27/2025 17:18:11 Rheumatoid arthritis 59350275 M06.9 8439256973 Gestation period, 34 weeks 90443474 Z3A.34 [id number] [id number] WINIFRED DELCID MD [place] [address],[place] [address] 02/10/2025 13:52:17 02/10/2025 14:38:34 care status 274953895 Z34.83 [id number] [id number] Sloan Talamantes MD [place] [address],[place] [address] 02/16/2025 16:03:00 02/16/2025 17:10:08 care status 591211715 Z34.83 36242220 [id number] Sloan Talamantes MD [place] [address],[place] [address] 02/26/2025 15:55:13 02/26/2025 17:21:51 care status 020227582 Z34.83 [id number] Health Concerns Section Related Observation LastModified by Organization Detai ls LastModified Time None Recorded Concern Status LastModified by Organization Details LastModified Time None Recorded Payers Encounter Date Sequence Insurance Name Policy Number Policy Meredith Covered Member ID Meredith Member ID Guarantor Name 02/26/2025 1 [facility] [id number] Stefanie Cortes [id number] Stefanie Cortes Notes Date Note Type Note Provider Name and Address Organization Details Recorded Time 02/26/2025 text/html Generic HPI TemplateReported by Patient Sloan Talamantes MD [address], [place], [address], [facility] 02/26/2025 17:16:42 OBGyn Episode Ob Episode Information Episode Created Date Number of Fetuses Patient Bloodtype Patient rh Status Prepregnancy Weight lbs Domestic Partner Domestic Partner Phone Father Name Store Lead Status 09/02/19 25 1 O Negative OPEN Fetus Data First Name Last Name Admitted to NICU Weight (g) Sex Living Outcome Pediatric Complications Fetus ID Race Codes Race Delivery Type [id number] Problems Problem Notes Problem Name Start Date End Date Resolution Snomed Code Not e Rheumatoid arthritis 12/16/2024 49751506 previously on Humira Tino Calculation Initial Tino [...] Sound Latest Days Gestation 10/29/19 25 21 [email or web address] 09/01/2024 03/09/20 25 3 Pre-hiram Flowsheet Flowsheet Date 09/01/2024 Garzon Score Blood Edema Fundus Height Fundus Units Glucose Ketones Leukocytes Nitrite Labor Signs Protein Cervic Dilation Cervic Effacement Cervic Station neg none Type Weight in lbs Pre/Post Dialysis Refused Weight 162.298060373868 BP Diastolic BP Location Tested BP Systolic BP Type 81 L arm 117 sitting Fetus Heart Rate Present A Present Fetus Movement A No Comments Patient presents to [facility] care. Hx of at 37 [...] Weight in lbs Pre/Post Dialysis Refused Weight 164.233978447831 BP Diastolic BP Location Tested BP Systolic BP Type 82 L arm 122 sitting Fetus Heart Rate Present A 140 Fetus Movement A No Comments Doing well, no issues. Had a bad headache a few weeks ago. No nausea, cramping or bleeding. NIPT LR, however no call on sex chromosomes. Per [place], will not repeat. Discussed with patient. Other [...] Weight in lbs Pre/Post Dialysis Refused Weight 167.665924083368 BP Diastolic BP Location Tested BP Systolic [...] Weight in lbs Pre/Post Dialysis Refused Weight 176.976798552067 BP Diastolic BP Location Tested BP Systolic [...] Weight in lbs Pre/Post Dialysis Refused Weight 184.428862698469 BP Diastolic BP Location Tested BP Systolic [...] Weight in lbs Pre/Post Dialysis Refused Weight 188.089369490559 BP Diastolic BP Location Tested BP Systolic [...] Type Weight in lbs Pre/Post Dialysis Refused 193.28857457671 BP Diastolic BP Location Tested BP Systolic [...] Type Weight in lbs Pre/Post Dialysis Refused 195.932816291073 BP Diastolic BP Location Tested BP Systolic [...] Type Weight in lbs Pre/Post Dialysis Refused 203.00086716792 BP Diastolic BP Location Tested BP Systolic [...] Weight in lbs Pre/Post Dialysis Refused Weight 199.849532630135 BP Diastolic BP Location Tested BP Systolic [...] Weight in lbs Pre/Post Dialysis Refused Weight 204.988283231444 BP Diastolic BP Location Tested BP Systolic [...] Weight in lbs Pre/Post Dialysis Refused Weight 205.306589458295 BP Diastolic BP Location Tested BP Systolic [...] Weight in lbs Pre/Post Dialysis Refused Weight 208.377215312158 BP Diastolic BP Location Tested BP Systolic [...]
--- OUTSIDE RECORDS SUMMARY | 2025-03-16 05:07 | XMS_ITS | Encounter Summary ---
Author Organization [facility] Address [address] [place] [address] Care Team Providers Care Corporate Quality Manager Name Role Phone Lynsey Larson RN Unavailable Unavailable Dimitri Almonte MD Primary Care Provider [phone] Stephany Lott MD Unavailable [phone] Encounter Details Date Type Department Care Team (Latest Contact Info) Description 03/06/2025 Orders Only [facility] - GI [facility], [place] [address] Mana Rivera PA-C [address] [place] [address] [address] [place] [address] History of liver transplant (CMS/HCC); Encounter for aftercare following liver transplant (HCC); 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 - GI [address] [place] [address], [place] [address] Mana Rivera PA-C [facility] 3L DIV [place] [address] documented as of this encounter [...] General On track( 022 9:34 AM CDT) No Lynsey Larson, TOMA Note: Expected end date: ongoing Interventions: Use appropriate and safe transfer methods Be aware of medications that could predispose you to falling Wear non-skid/rubber sole footwear Use some light at night in your room documented as of this encounter Visit Diagnoses Diagnosis History of liver transplant (CMS/HCC) Liver replaced by transplant Encounter for aftercare following liver transplant (HCC) Aftercare following organ transplant longterm current use of immunosuppressive drug documented in this encounter Care Teams Corporate Quality Manager Relationship Specialty Start Date End Date Dimitri Almonte MD [address] [place] [address] PCP - General 09/24/19 Lynsey Larson, TOMA Registered Nurse 07/02/18 Stephany Lott MD [address] [place] [address] Physician Obstetrics and Gynecology 11/07/21 documented as of this encounter
--- OUTSIDE RECORDS SUMMARY | 2025-03-16 05:07 | XMS_ITS | Continuity of Care Document ---
Author Organization [facility] Address [address] [place] [address] Care Team Providers Care Clinical Massage Therapist Name Role Phone MADRID, BRODERICK Primary Care [...] [facility] [address], [place], [address], 09/08/2024 22:51:39 09/09/19 25 09/08/2024 [UNIT Y] BLAINE ER SCREE N alpha-thalas semia carrier screen NEGATI VE normal Not Available [facility] [address], [place], [address], 09/08/2024 22:51:39 09/09/19 25 09/08/2024 [UNIT Y] BLAINE ER SCREE N cystic fibrosis carrier screen NEGATI VE normal Not Available [facility] [address], [place], [address], 09/08/2024 22:51:39 09/09/19 25 09/08/2024 [UNIT Y] BLAINE [place] spinal muscular atrophy carrier screen NEGATI VE 3 SMN1 copies , SNP not presen t normal Not Available [facility] [address], [place], [address], 09/08/2024 22:51:39 09/09/19 25 09/08/2024 [UNIT Y] BLAINE [place] for detailed report, see pdf See PDF normal Not Available [facility] [address], [place], [address], 09/08/2024 22:51:39 09/13/19 25 09/12/2024 [UNIT Y] ANEUP LOIDY NIPT redraw requested? No normal Not Available Angelo [facility] [address], [place], [address], 09/12/2024 00:04:22 09/13/19 25 09/12/2024 [UNIT Y] ANEUP LOIDY NIPT fraction 9.1% normal Not Available [facility] [address], [place], [address], 09/12/2024 00:04:22 09/13/19 25 09/12/2024 [UNIT Y] ANEUP LOIDY NIPT 22Q11.2 microdeletio n LOW RISK <1 in 10,000 normal Not Available [facility] [address], [place], [address], 09/12/2024 00:04:22 09/13/19 25 09/12/2024 [UNIT Y] [...] Available [facility] [address], [place], [address], 09/12/2024 00:04:22 09/13/19 25 09/12/2024 [UNIT Y] ANEUP LOIDY NIPT sex chromosome aneuploidy NO CALL abnormal Not Available [facility] [address], [place], [address], 09/12/2024 00:04:22 09/13/19 25 09/12/2024 [UNIT Y] ANEUP LOIDY NIPT monosomy X NO CALL abnormal Not Available [facility] [address], [place], [address], 09/12/2024 00:04:22 09/13/19 25 09/12/2024 [UNIT Y] ANEUP LOIDY NIPT trisomy 13 LOW RISK <1 in 10,000 normal Not Available [facility] [address], [place], [address], 09/12/2024 00:04:22 09/13/19 25 09/12/2024 [UNIT Y] ANEUP LOIDY NIPT trisomy 18 LOW RISK <1 in 10,000 normal Not Available [facility] [address], [place], [address], 09/12/2024 00:04:22 09/13/19 25 09/12/2024 [UNIT Y] ANEUP LOIDY NIPT trisomy 21 LOW RISK <1 in 10,000 normal Not Available [facility] [address], [place], [address], 09/12/2024 00:04:22 09/13/19 25 09/12/2024 [UNIT Y] ANEUP LOIDY NIPT sex N/A abnormal Not Available [facility] [address], [place], [address], 09/12/2024 00:04:22 09/13/19 25 09/12/2024 [UNIT Y] ANEUP LOIDY NIPT gestation SINGLE TON normal Not Available [facility] [address], [place], [address], 09/12/2024 00:04:22 09/13/19 25 09/12/2024 [UNIT Y] ANEUP LOIDY NIPT for detailed report, see pdf See PDF normal Not Available [facility] [address], [place], [address], 09/12/2024 00:04:22 09/02/19 25 09/01/2024 CBC W/DIF F WBC 11.5 10'3/ uL 3.5-10 .5 high Not Available [facility] (Lab) [address] , [place], [address], 09/02/2024 13:48:30 09/02/19 25 09/01/2024 CBC W/DIF F RBC 4.99 10'6/ uL (based on docume nted legal sex) 3.80-5 .20 Not Available [facility] (Lab) [address] , [place], [address], 09/02/2024 13:48:30 09/02/19 25 09/01/2024 CBC W/DIF F HGB 14.4 g/dL (based on docume nted legal sex) 11.6-1 5.4 Not Available [facility] (Lab) [address] , [place], [address], 09/02/2024 13:48:30 09/02/19 25 09/01/2024 CBC W/DIF F HCT 42.5 % (based on docume nted legal sex) 34.0-4 5.0 Not Available [facility] (Lab) [address], [place], [address], 09/02/2024 13:48:30 09/02/19 25 09/01/2024 CBC W/DIF F MCV 85.2 fL 80.0-9 9.0 Not Available [facility] (Lab) [address] [facility], [place], [address], 09/02/2024 13:48:30 09/02/19 25 09/01/2024 CBC W/DIF F MCH 28.9 pg 27.0-3 4.0 Not Available [facility] (Lab) [address] [facility], [place], [address], 09/02/2024 13:48:30 09/02/19 25 09/01/2024 CBC W/DIF F MCHC 33.9 g/dL 32.0-3 5.5 Not Available [facility] (Lab) [address] [facility], [place], [address], 09/02/2024 13:48:30 09/02/19 25 09/01/2024 CBC W/DIF F RDW 13.2 % 11.0-1 5.0 Not Available [facility] (Lab) [address] [facility], [place], [address], 09/02/2024 13:48:30 09/02/19 25 09/01/2024 CBC W/DIF F plt 208 10'3/ uL 150-40 0 Not Available [facility] (Lab) [address] [facility], [place], [address], 09/02/2024 13:48:30 09/02/19 25 09/01/2024 CBC W/DIF F MPV 12.3 fL 8.8-12 .1 high Not Available [facility] (Lab) [address] [facility], [place], [address], 09/02/2024 13:48:30 09/02/19 25 09/01/2024 CBC W/DIF F NRBC's 0.0 % 0.0 Not Available [facility] (Lab) [address] [place], [address], 09/02/2024 13:48:30 09/02/19 25 09/01/2024 CBC W/DIF F absolute NRBCs 0.0 10'3/ uL no refere nce range establ ished Not Available [facility] (Lab) [address] [facility], [place], [address], 09/02/2024 13:48:30 09/02/19 25 09/01/2024 CBC W/DIF F neutrophils 70.5 % 34.0-7 3.0 Not Available [facility] (Lab) [address] [facility], [place], [address], 09/02/2024 13:48:30 09/02/19 25 09/01/2024 CBC W/DIF F lymphocytes 21.9 % 15.0-5 0.0 Not Available [facility] (Lab) [address] [facility], [place], [address], 09/02/2024 13:48:30 09/02/19 25 09/01/2024 CBC W/DIF F monocytes 5.8 % 1.0-15 .0 Not Available [facility] (Lab) [address] [facility], [place], [address], 09/02/2024 13:48:30 09/02/19 25 09/01/2024 CBC W/DIF F eosinophils 1.3 % 0.0-8. 0 Not Available [facility] (Lab) [address] [place], [address], 09/02/2024 13:48:30 09/02/19 25 09/01/2024 CBC W/DIF F basophils 0.2 % 0.0-2. 0 Not Available [facility] (Lab) [address] [place], [address], 09/02/2024 13:48:30 09/02/19 25 09/01/2024 CBC W/DIF [...] separ ately if prese nt. Not Available [facility] (Lab) [address] [facility], [place], [address], 09/02/2024 13:48:30 09/02/19 25 09/01/2024 CBC W/DIF F absolute neutrophils 8.1 10'3/ uL 1.5-8. 0 high Not Available [facility] (Lab) [address] [facility], [place], [address], 09/02/2024 13:48:30 09/02/19 25 09/01/2024 CBC W/DIF F absolute lymphocytes 2.5 10'3/ uL 1.0-4. 0 Not Available [facility] (Lab) [address] [facility], [place], [address], 09/02/2024 13:48:30 09/02/19 25 09/01/2024 CBC W/DIF F absolute monocytes 0.7 10'3/ uL 0.2-1. 0 Not Available [facility] (Lab) [address] [facility], [place], [address], 09/02/2024 13:48:30 09/02/19 25 09/01/2024 CBC W/DIF F absolute eosinophils 0.2 10'3/ uL 0.0-0. 6 Not Available [facility] (Lab) [address] [facility], [place], [address], 09/02/2024 13:48:30 09/02/19 25 09/01/2024 CBC W/DIF F absolute basophils 0.0 10'3/ uL 0.0-0. 3 Not Available [facility] (Lab) [address] [facility], [place], [address], 09/02/2024 13:48:30 09/02/19 25 09/01/2024 CBC W/DIF [...] benand book. nm.or g/gen derx Not Available [facility] (Lab) [address] [facility], [place], [address], 09/02/2024 13:48:30 09/02/19 25 09/01/2024 TYPE/ RH/SC REEN ABO/Rh type O NEG Not Available [facility] (Lab) [address], [place], [address], 09/02/2024 13:48:30 09/02/19 25 09/01/2024 TYPE/ RH/SC REEN antibody screen NEG Not Available [facility] (Lab) [address], [place], [address], 09/02/2024 13:48:30 09/02/19 25 09/01/2024 TYPE/ RH/SC REEN exp date 2024 23:59 Not Available [facility] (Lab) [address] [place], [address], 09/02/2024 13:48:30 09/02/1909/01/2024 HIV 1/2 ANTIG EN/AN TIBOD Y, REFLE X CONFI RMATI ON HIV antigen/anti body Nonrea ctive nonrea ctive HIV-1 antig en and HIV-1 /HIV- 2 antib odies were not detec edouard. No labor atory evide nce of HIV infec tion. Not Available [facility] (Lab) [address], [place], [address], 09/02/2024 13:48:31 09/02/19 25 09/01/2024 HEPAT ITIS B SURFA CE ANTIG EN hepatitis B surface antigen Non-re active non-re active This assay was perfo rmed using [employer] ratio n reage nts and test kits. Value s obtai blaine with other assay metho ds or kits canno t be used inter stover eably . Not Available [facility] (Lab) [address], [place], [address], 09/02/2024 13:48:31 09/02/19 25 09/01/2024 HEPAT ITIS C ANTIB MARV SCREE N, REFLE X TO CONFI RMATI ON hepatitis C antibody Non-re active non-re active Antib odies to HCV Not Detec edouard, does not exclu de the possi bilit y of expos ure to HCV. Not Available [facility] (Lab) [address], [place], [address], 09/02/2024 13:48:31 09/02/19 25 09/01/2024 RUBEL LA IGG ANTIB MARV, QUANT rubella antibodies, IgG Reacti ve reacti ve Not Available [facility] (Lab) [address] [place], [address], 09/02/2024 13:48:32 09/02/19 25 09/01/2024 RUBEL LA IGG ANTIB MARV, QUANT rubella antibodies, IgG quant 12.2 IU/mL >=10 Non-r eacti ve (Non- Immun e) <10 IU/mL React nkechi (Immu ne) > or = 10 IU/mL Not Available [facility] (Lab) [address] [place], [address], 09/02/2024 13:48:32 09/02/19 25 09/01/2024 RPR SCREE N, REFLE X TITER /CONF IRMAT ION RPR qualitative Nonrea ctive nonrea ctive Not Available [facility] (Lab) [address] [place], [address], 09/02/2024 13:48:32 09/02/19 25 09/01/2024 HEMOG LOBIN [...] >8.0% Actio n sugge sted Not Available [facility] (Lab) [address], [place], [address], 09/02/2024 13:48:32 09/02/1909/01/2024 CULTU RE: URINE result report SEE RESULT S BELOW Test: Cultu re: Urine Speci men Sourc e: Urine Voide d Speci men Type: Urine Speci men Date: 025 1116 Resul t Date: 2024 Resul t Statu s: Final resul t Abnor mal: No Resul ting Lab: [facility] [address] [facility] [address] Tel: CULTU RE ----- ----- ----- --- No growt h in 1 day (dete ction level of 10,00 0 colon ies / ml.) Not Available [facility] (Lab) [address], [place], [address], 09/02/2024 21:37:00 09/02/19 25 09/01/2024 drug scree n, urine Amphetamines : negati ve Not Available [facility] [address], [place], [address], 09/01/2024 11:12:32 09/02/19 25 09/01/2024 drug scree n, urine Cannabinoids : negati ve Not Available [facility] [address], [place], [address], 09/01/2024 11:12:32 09/02/19 25 09/01/2024 drug scree n, urine Cocaine: negati ve Not Available [facility] [address], [place], [address], 09/01/2024 11:12:32 09/02/19 25 09/01/2024 drug scree n, urine Opiates: negati ve Not Available [facility] [address], [place], [address], 09/01/2024 11:12:32 09/02/19 25 09/01/2024 drug scree n, urine Phenocyclidi ne: negati ve Not Available [facility] [address], [place], [address], 09/01/2024 11:12:32 09/02/19 25 09/01/2024 drug scree n, urine Barbiturates : negati ve Not Available [facility] [address], [place], [address], 09/01/2024 11:12:32 09/02/19 25 09/01/2024 drug scree n, urine Benzodiazepi loan: negati ve Not Available [facility] [address], [place], [address], 09/01/2024 11:12:32 09/02/19 25 09/01/2024 drug scree n, urine Ethanol: negati ve Not Available [facility] [address], [place], [address], 09/01/2024 11:12:32 09/02/19 25 09/01/2024 drug scree n, urine Hallucinogen s: negati ve Not Available [facility] [address], [place], [address], 09/01/2024 11:12:32 09/02/19 25 09/01/2024 drug scree n, urine Inhalants: negati ve Not Available [facility] [address], [place], [address], 09/01/2024 11:12:32 09/02/19 25 09/01/2024 drug scree n, urine Anabolic Steroids: negati ve Not Available [facility] [address], [place], [address], 09/01/2024 11:12:32 09/02/19 25 09/01/2024 drug scree n, urine Other: negati ve Not Available [facility] [address], [place], [address], 09/01/2024 11:12:32 09/02/19 25 09/01/2024 US, obste tric, nucha l trans lucen cy No observ ation record ed. [facility] [address], [place], [address], 09/01/2024 18:48:24 09/02/19 25 09/01/2024 US, obste tric, nucha l trans lucen cy No observ ation record ed. [email or web address] [address], [place], [address], 09/02/2024 11:29:46 10/29/19 25 10/28/2024 US, obste tric, 2nd or 3rd trime ster No observ ation record ed. [facility] [address], [place], [address], 10/28/2024 18:24:58 10/29/19 25 10/28/2024 US, obste tric, 2nd or 3rd trime ster No observ ation record ed. [place] [address], [place], [address], 10/28/2024 22:59:36 01/14/20 25 01/13/2025 US, obste tric, follo w-up No observ ation record ed. ELIE Montoya [address], [place], [address], 01/16/2025 19:25:04 01/14/20 25 01/13/2025 US, obste tric, follo w-up No observ ation record ed. [email or web address] [facility] [address], [place], [address], 01/13/2025 17:54:59 Result Notes None recorded. Problems Name Problem SNOMED Code Status Onset Date Resolution Date Notes Provider Name and Address Organization Details Recorded Time 63553990 Active 2024 ISRAEL hurtado, [facility] 10:27:09 Rheumatoi d arthritis 40162539 Active 2024 previously on Juliette DELCID MD [address], [place], [address], [facility] 16:24:19 Problem Notes None recorded. Procedures Surgical History Date Name Laterality Status Provider Name and Address Organization Details Recorded Time 03/26/19 22 Date of Last Pap Smear completed [facility] 08/11/2024 16:48:19 10/02/18 97 [facility] liver [facility] 16:51:12 Imaging Results None recorded. [...] Not Available Not Avai lable Not Available [place] 3 Fish Oil 08/11 completed Not Available Not Available Not Available Humira 08/11 completed Not Available Not Available Not Available Probiotic active Not Available Not Ruth ilable Not Available Vitals Date Recorded Body weight Body mass index (BMI) Body height Systolic And Diastolic Provider Name and Address Organization Details Last Updated DateTime 01/27/2025 97498.512 15 g 34.5 kg/m2 160.02 cm 107/68 mm[Hg] Dolly Kline [facility] 01/27/2025 17:05:37 Social History Question Answer Notes LastModified by [...] Or The Highest Degree You Have Received? WI36692-9 Information not available 08/11/2024 Are There Any [...] anxious, or unable to sleep at night)? [id number] Information not available 08/11/2024 Family History Relationship Description Onset Age of this Age Resolved Age Notes LastModified by Organization Details LastModified Time Unspecified Relation Family history unknown Not available 2024 16:45:41 Medical History Condition Response Allergies (Food, seasonal, environmental ) Y Hematologic disorders Y Hepatitis/Liver Disease N Arthritis Y History of abnormal pap Y Pre-Eclampsia Y Gynecological History Statement/Question Response Abnormal Pap [...] ICD10 Code Diagnosis IMO Codes Diagnosis Note [id number] MD Maryse DE LEON [address],[place] [address] 12/30/2024 17:27:04 01/02/2025 08:54:34 care status 142893872 Z34.83 57727503 [id number] WINIFRED DELCID MD [facility] [address],[place] [address] 01/13/2025 17:17:00 01/13/2025 17:52:49 Observational assessment 616073936 Z03.74 Z3A.32 [id number] WINIFRED DELCID MD [facility] [address],[place] [address] 01/13/2025 17:17:32 01/13/2025 17:58:06 Rheumatoid arthritis 06383310 M06.9 [id number] Gestation period, 32 weeks 2122888 Z3A.32 4020975 [id number] WINIFRED DELCID MD [facility] [address],[place] [address] 01/27/2025 16:31:09 01/27/2025 17:18:11 Rheumatoid arthritis 15792559 M06.9 [id number] Gestation period, 34 weeks 87355096 Z3A.34 [id number] Health Concerns Section Related Observation LastModified by Organization Detai ls LastModified Time None Recorded Concern Status LastModified by Organization Details LastModified Time None Recorded Payers Encounter Date Sequence Insurance Name Policy Number Policy Meredith Covered Member ID Meredith Member ID Guarantor Name 01/27/2025 1 [facility] [id number] Stefanie Cortes [id number] Stefanie Cortes Notes Date Note Type Note Provider Name and Address Organization Details Recorded Time 01/27/2025 text/html Generic HPI TemplateReported by Patient WINIFRED DELCID MD [address], [place], [address], [facility] 01/27/2025 17:13:52 OBGyn Episode Ob Episode Information Episode Created Date Number of Fetuses Patient Bloodtype Patient rh Status Prepregnancy Weight lbs Domestic Partner Domestic Partner Phone Father Name Retail Loan Originator Assistant Status 09/02/19 25 1 O Negative OPEN Fetus Data First Name Last Name Admitted to NICU Weight (g) Sex Living Outcome Pediatric Complications Fetus ID Race Codes Race Delivery Type [id number] Problems Problem Notes Problem Name Start Date End Date Resolution Snomed Code Not e Rheumatoid arthritis 12/16/2024 [id number] previously on Humira Tino Calculation Initial Tino [...] Sound Latest Days Gestation 10/29/19 25 21 [email or web address] 09/01/2024 03/09/20 25 3 Pre- Flowsheet Flowsheet Date 09/01/2024 Garzon Score Blood Edema Fundus Height Fundus Units Glucose Ketones Leukocytes Nitrite Labor Signs Protein Cervic Dilation Cervic Effacement Cervic Station neg none Type Weight in lbs Pre/Post Dialysis Refused Weight 162.154718877949 BP Diastolic BP Location Tested BP Systolic BP Type 81 L arm 117 sitting Fetus Heart Rate Present A Present Fetus Movement A No Comments Patient presents to [facility] care. Hx of at 37 weeks, [...] Weight in lbs Pre/Post Dialysis Refused Weight 164.057018232715 BP Diastolic BP Location Tested BP Systolic BP Type 82 L arm 122 sitting Fetus Heart Rate Present A 140 Fetus Movement A No Comments Doing well, no issues. Had a bad headache a few weeks ago. No nausea, cramping or bleeding. NIPT LR, however no call on sex chromosomes. Per [place], will not repeat. Discussed with patient. Other [...] Weight in lbs Pre/Post Dialysis Refused Weight 167.210599980360 BP Diastolic BP Location Tested BP Systolic [...] Weight in lbs Pre/Post Dialysis Refused Weight 176.623288186009 BP Diastolic BP Location Tested BP Systolic [...] Weight in lbs Pre/Post Dialysis Refused Weight 184.384995244718 BP Diastolic BP Location Tested BP Systolic [...] Weight in lbs Pre/Post Dialysis Refused Weight 188.190405625831 BP Diastolic BP Location Tested BP Systolic [...] Type Weight in lbs Pre/Post Dialysis Refused 193.13665792412 BP Diastolic BP Location Tested BP Systolic [...] Type Weight in lbs Pre/Post Dialysis Refused 195.720182548699 BP Diastolic BP Location Tested BP Systolic [...] Type Weight in lbs Pre/Post Dialysis Refused 203.22104117441 BP Diastolic BP Location Tested BP Systolic [...] Weight in lbs Pre/Post Dialysis Refused Weight 199.103046344567 BP Diastolic BP Location Tested BP Systolic [...] Weight in lbs Pre/Post Dialysis Refused Weight 204.328536437807 BP Diastolic BP Location Tested BP Systolic [...] Weight in lbs Pre/Post Dialysis Refused Weight 205.038556207061 BP Diastolic BP Location Tested BP Systolic [...] Weight in lbs Pre/Post Dialysis Refused Weight 208.108063026050 BP Diastolic BP Location Tested BP Systolic [...]
--- OUTSIDE RECORDS SUMMARY | 2025-03-16 05:07 | XMS_ITS | Encounter Summary ---
Author Organization [facility] Address [address] [place] [address] Care Team Providers Care Helicopter Officer Name Role Phone Lynsey Larson RN Unavailable Unavailable Dimitri Almonte MD Primary Care Provider [phone] Stephany Lott MD Unavailable [phone] Reason for Visit * Reason Onset Date Comments MEDICATION REFILL 06/04/2020 Encounter Details Date Type Department Care Team (Late st Contact Info) Description 06/04/2020 Refill [facility] [address] [place] [address] Sofia Langley MD [address] [id number] MEDICATION REFILL Social History Tobacco Use Types [...] on file 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 Gender Identity Not on file Sexual Orientation Not on file documented as of this encounter Miscellaneous Notes * Telephone Encounter - Norris Barreraaya - 06/07/2020 8:30 AM CDT Refill Request Stefanie Madden SEJAL: 05.03.20Jan due: 07.27.20Jan scheduled: 07/27/2020 LRF: 11.14.19 Qty Disp: 60 # of refills: 4 [...] Office Visit [facility] - Rheumatology [address] [place] [address] [place] [address] Zac Douglas MD [address] [place] [address] 2L [place] [address] 07/31/2025 9:00 AM CDT Office Visit [facility] GI [address] [place] [address], [place] [address] Mana Rivera PA-C [facility] [facility] 3L [place] [address] documented as of this encounter [...] on filedocumented in this encounter Care Teams Helicopter Officer Relationship Specialty Start Date End Date Dimitri Almonte MD [address] [place] [address] PCP - General 09/24/19 Lynsey Larson, RN Registered Nurse 07/02/18 Stephany Lott MD [address] [place] [address] Physician Obstetrics and Gynecology 11/07/21 documented as of this encounter
--- OUTSIDE RECORDS SUMMARY | 2025-03-16 05:07 | XMS_ITS | Continuity of Care Document ---
Author Organization [facility], [facility] Address [address] [place] [address] Care Team Providers Care Donation Specialist Name Role Phone MADRID, BRODERICK Primary Care [...] [facility] [address], [place], [address], 09/08/2024 22:51:39 09/09/19 25 09/08/2024 [UNIT Y] BLAINE ER SCREE N alpha-thalas semia carrier screen NEGATI VE normal Not Available [facility] [address], [place], [address], 09/08/2024 22:51:39 09/09/19 25 09/08/2024 [UNIT Y] BLAINE ER SCREE N cystic fibrosis carrier screen NEGATI VE normal Not Available [facility] [address], [place], [address], 09/08/2024 22:51:39 09/09/19 25 09/08/2024 [UNIT Y] BLAINE [place] spinal muscular atrophy carrier screen NEGATI VE 3 SMN1 copies , SNP not presen t normal Not Available [facility] [address], [place], [address], 09/08/2024 22:51:39 09/09/19 25 09/08/2024 [UNIT Y] BLAINE [place] for detailed report, see pdf See PDF normal Not Available [facility] [address], [place], [address], 09/08/2024 22:51:39 09/13/19 25 09/12/2024 [UNIT Y] ANEUP LOIDY NIPT redraw requested? No normal Not Available Angelo ontoone [address], [place], [address], 09/12/2024 00:04:22 09/13/19 25 09/12/2024 [UNIT Y] ANEUP LOIDY NIPT fraction 9.1% normal Not Available [facility] [address], [place], [address], 09/12/2024 00:04:22 09/13/19 25 09/12/2024 [UNIT Y] ANEUP LOIDY NIPT 22Q11.2 microdeletio n LOW RISK <1 in 10,000 normal Not Available [facility] [address], [place], [address], 09/12/2024 00:04:22 09/13/19 25 09/12/2024 [UNIT Y] [...] Available [facility] [address], [place], [address], 09/12/2024 00:04:22 09/13/19 25 09/12/2024 [UNIT Y] ANEUP LOIDY NIPT sex chromosome aneuploidy NO CALL abnormal Not Available [facility] [address], [place], [address], 09/12/2024 00:04:22 09/13/19 25 09/12/2024 [UNIT Y] ANEUP LOIDY NIPT monosomy X NO CALL abnormal Not Available [facility] [address], [place], [address], 09/12/2024 00:04:22 09/13/19 25 09/12/2024 [UNIT Y] ANEUP LOIDY NIPT trisomy 13 LOW RISK <1 in 10,000 normal Not Available [facility] [address], [place], [address], 09/12/2024 00:04:22 09/13/19 25 09/12/2024 [UNIT Y] ANEUP LOIDY NIPT trisomy 18 LOW RISK <1 in 10,000 normal Not Available [facility] [address], [place], [address], 09/12/2024 00:04:22 09/13/19 25 09/12/2024 [UNIT Y] ANEUP LOIDY NIPT trisomy 21 LOW RISK <1 in 10,000 normal Not Available [facility] [address], [place], [address], 09/12/2024 00:04:22 09/13/19 25 09/12/2024 [UNIT Y] ANEUP LOIDY NIPT sex N/A abnormal Not Available [facility] [address], [place], [address], 09/12/2024 00:04:22 09/13/19 25 09/12/2024 [UNIT Y] ANEUP LOIDY NIPT gestation SINGLE TON normal Not Available [facility] [address], [place], [address], 09/12/2024 00:04:22 09/13/19 25 09/12/2024 [UNIT Y] ANEUP LOIDY NIPT for detailed report, see pdf See PDF normal Not Available [facility] [address], [place], [address], 09/12/2024 00:04:22 09/02/19 25 09/01/2024 CBC W/DIF F WBC 11.5 10'3/ uL 3.5-10 .5 high Not Available [facility] (Lab) [address] , [place], [address], 09/02/2024 13:48:30 09/02/19 25 09/01/2024 CBC W/DIF F RBC 4.99 10'6/ uL (based on docume nted legal sex) 3.80-5 .20 Not Available [facility] (Lab) [address] , [place], [address], 09/02/2024 13:48:30 09/02/19 25 09/01/2024 CBC W/DIF F HGB 14.4 g/dL (based on docume nted legal sex) 11.6-1 5.4 Not Available [facility] (Lab) [address] , [place], [address], 09/02/2024 13:48:30 09/02/19 25 09/01/2024 CBC W/DIF F HCT 42.5 % (based on docume nted legal sex) 34.0-4 5.0 Not Available [facility] (Lab) [address], [place], [address], 09/02/2024 13:48:30 09/02/19 25 09/01/2024 CBC W/DIF F MCV 85.2 fL 80.0-9 9.0 Not Available [facility] (Lab) [address] [facility], [place], [address], 09/02/2024 13:48:30 09/02/19 25 09/01/2024 CBC W/DIF F MCH 28.9 pg 27.0-3 4.0 Not Available [facility] (Lab) [address] [facility], [place], [address], 09/02/2024 13:48:30 09/02/19 25 09/01/2024 CBC W/DIF F MCHC 33.9 g/dL 32.0-3 5.5 Not Available [facility] (Lab) [address] [facility], [place], [address], 09/02/2024 13:48:30 09/02/19 25 09/01/2024 CBC W/DIF F RDW 13.2 % 11.0-1 5.0 Not Available [facility] (Lab) [address] [facility], [place], [address], 09/02/2024 13:48:30 09/02/19 25 09/01/2024 CBC W/DIF F plt 208 10'3/ uL 150-40 0 Not Available [facility] (Lab) [address] [facility], [place], [address], 09/02/2024 13:48:30 09/02/19 25 09/01/2024 CBC W/DIF F MPV 12.3 fL 8.8-12 .1 high Not Available [facility] (Lab) [address] [facility], [place], [address], 09/02/2024 13:48:30 09/02/19 25 09/01/2024 CBC W/DIF F NRBC's 0.0 % 0.0 Not Available [facility] (Lab) [address] [place], [address], 09/02/2024 13:48:30 09/02/19 25 09/01/2024 CBC W/DIF F absolute NRBCs 0.0 10'3/ uL no refere nce range establ ished Not Available [facility] (Lab) [address] [facility], [place], [address], 09/02/2024 13:48:30 09/02/19 25 09/01/2024 CBC W/DIF F neutrophils 70.5 % 34.0-7 3.0 Not Available [facility] (Lab) [address] [facility], [place], [address], 09/02/2024 13:48:30 09/02/19 25 09/01/2024 CBC W/DIF F lymphocytes 21.9 % 15.0-5 0.0 Not Available [facility] (Lab) [address] [facility], [place], [address], 09/02/2024 13:48:30 09/02/19 25 09/01/2024 CBC W/DIF F monocytes 5.8 % 1.0-15 .0 Not Available [facility] (Lab) [address] [facility], [place], [address], 09/02/2024 13:48:30 09/02/19 25 09/01/2024 CBC W/DIF F eosinophils 1.3 % 0.0-8. 0 Not Available [facility] (Lab) [address] [place], [address], 09/02/2024 13:48:30 09/02/19 25 09/01/2024 CBC W/DIF F basophils 0.2 % 0.0-2. 0 Not Available [facility] (Lab) [address] [place], [address], 09/02/2024 13:48:30 09/02/19 25 09/01/2024 CBC W/DIF [...] separ ately if prese nt. Not Available [facility] (Lab) [address] [facility], [place], [address], 09/02/2024 13:48:30 09/02/19 25 09/01/2024 CBC W/DIF F absolute neutrophils 8.1 10'3/ uL 1.5-8. 0 high Not Available [facility] (Lab) [address] [facility], [place], [address], 09/02/2024 13:48:30 09/02/19 25 09/01/2024 CBC W/DIF F absolute lymphocytes 2.5 10'3/ uL 1.0-4. 0 Not Available [facility] (Lab) [address] [facility], [place], [address], 09/02/2024 13:48:30 09/02/19 25 09/01/2024 CBC W/DIF F absolute monocytes 0.7 10'3/ uL 0.2-1. 0 Not Available [facility] (Lab) [address] [facility], [place], [address], 09/02/2024 13:48:30 09/02/19 25 09/01/2024 CBC W/DIF F absolute eosinophils 0.2 10'3/ uL 0.0-0. 6 Not Available [facility] (Lab) [address] [facility], [place], [address], 09/02/2024 13:48:30 09/02/19 25 09/01/2024 CBC W/DIF F absolute basophils 0.0 10'3/ uL 0.0-0. 3 Not Available [facility] (Lab) [address] [facility], [place], [address], 09/02/2024 13:48:30 09/02/19 25 09/01/2024 CBC W/DIF [...] benand book. nm.or g/gen derx Not Available [facility] (Lab) [address] [facility], [place], [address], 09/02/2024 13:48:30 09/02/19 25 09/01/2024 TYPE/ RH/SC REEN ABO/Rh type O NEG Not Available [facility] (Lab) [address] [facility], [place], [address], 09/02/2024 13:48:30 09/02/19 25 09/01/2024 TYPE/ RH/SC REEN antibody screen NEG Not Available [facility] (Lab) [address] [facility], [place], [address], 09/02/2024 13:48:30 09/02/19 25 09/01/2024 TYPE/ RH/SC REEN exp date 2024 23:59 Not Available [facility] (Lab) [address] [place], [address], 09/02/2024 13:48:30 09/02/1909/01/2024 HIV 1/2 ANTIG EN/AN TIBOD Y, REFLE X CONFI RMATI ON HIV antigen/anti body Nonrea ctive nonrea ctive HIV-1 antig en and HIV-1 /HIV- 2 antib odies were not detec edouard. No labor atory evide nce of HIV infec tion. Not Available [facility] (Lab) [address] [facility], [place], [address], 09/02/2024 13:48:31 09/02/19 25 09/01/2024 HEPAT ITIS B SURFA CE ANTIG EN hepatitis B surface antigen Non-re active non-re active This assay was perfo rmed using [employer] n reage nts and test kits. Value s obtai blaine with other assay metho ds or kits canno t be used inter stover eably . Not Available [facility] (Lab) [address] [facility], [place], [address], 09/02/2024 13:48:31 09/02/19 25 09/01/2024 HEPAT ITIS C ANTIB MARV SCREE N, REFLE X TO CONFI RMATI ON hepatitis C antibody Non-re active non-re active Antib odies to HCV Not Detec edouard, does not exclu de the possi bilit y of expos ure to HCV. Not Available [facility] (Lab) [address] [facility], [place], [address], 09/02/2024 13:48:31 09/02/19 25 09/01/2024 RUBEL LA IGG ANTIB MARV, QUANT rubella antibodies, IgG Reacti ve reacti ve Not Available [facility] (Lab) [address] [place], [address], 09/02/2024 13:48:32 09/02/19 25 09/01/2024 RUBEL LA IGG ANTIB MARV, QUANT rubella antibodies, IgG quant 12.2 IU/mL >=10 Non-r eacti ve (Non- Immun e) <10 IU/mL React nkechi (Immu ne) > or = 10 IU/mL Not Available [facility] (Lab) [address] [place], [address], 09/02/2024 13:48:32 09/02/19 25 09/01/2024 RPR SCREE N, REFLE X TITER /CONF IRMAT ION RPR qualitative Nonrea ctive nonrea ctive Not Available [facility] (Lab) [address] [place], [address], 09/02/2024 13:48:32 09/02/19 25 09/01/2024 HEMOG LOBIN [...] >8.0% Actio n sugge sted Not Available [facility] (Lab) [address], [place], [address], 09/02/2024 13:48:32 09/02/1909/01/2024 CULTU RE: URINE result report SEE RESULT S BELOW Test: Cultu re: Urine Speci men Sourc e: Urine Voide d Speci men Type: Urine Speci men Date: 025 1116 Resul t Date: 2024 Resul t Statu s: Final resul t Abnor mal: No Resul ting Lab: [facility] [address] [facility] [address] Tel: CULTU RE ----- ----- ----- --- No growt h in 1 day (dete ction level of 10,00 0 colon ies / ml.) Not Available [facility] (Lab) [address], [place], [address], 09/02/2024 21:37:00 09/02/19 25 09/01/2024 drug scree n, urine Amphetamines : negati ve Not Available [place] [address], [place], [address], 09/01/2024 11:12:32 09/02/19 25 09/01/2024 drug scree n, urine Cannabinoids : negati ve Not Available [place] [address], [place], [address], 09/01/2024 11:12:32 09/02/19 25 09/01/2024 drug scree n, urine Cocaine: negati ve Not Available [place] [address], [place], [address], 09/01/2024 11:12:32 09/02/19 25 09/01/2024 drug scree n, urine Opiates: negati ve Not Available [place] [address], [place], [address], 09/01/2024 11:12:32 09/02/19 25 09/01/2024 drug scree n, urine Phenocyclidi ne: negati ve Not Available [place] [address], [place], [address], 09/01/2024 11:12:32 09/02/19 25 09/01/2024 drug scree n, urine Barbiturates : negati ve Not Available [place] [address], [place], [address], 09/01/2024 11:12:32 09/02/19 25 09/01/2024 drug scree n, urine Benzodiazepi loan: negati ve Not Available [place] [address], [place], [address], 09/01/2024 11:12:32 09/02/19 25 09/01/2024 drug scree n, urine Ethanol: negati ve Not Available [place] [address], [place], [address], 09/01/2024 11:12:32 09/02/19 25 09/01/2024 drug scree n, urine Hallucinogen s: negati ve Not Available [place] [address], [place], [address], 09/01/2024 11:12:32 09/02/19 25 09/01/2024 drug scree n, urine Inhalants: negati ve Not Available [place] [address], [place], [address], 09/01/2024 11:12:32 09/02/19 25 09/01/2024 drug scree n, urine Anabolic Steroids: negati ve Not Available [place] [address], [place], [address], 09/01/2024 11:12:32 09/02/19 25 09/01/2024 drug scree n, urine Other: negati ve Not Available [place] [address], [place], [address], 09/01/2024 11:12:32 09/02/19 25 09/01/2024 US, obste tric, nucha l trans lucen cy No observ ation record ed. [facility] [address], [place], [address], 09/01/2024 18:48:24 09/02/19 25 09/01/2024 US, obste tric, nucha l trans lucen cy No observ ation record ed. Lindsay [address], [place], [address], 09/02/2024 11:29:46 10/29/19 25 10/28/2024 US, obste tric, 2nd or 3rd trime ster No observ ation record ed. [facility] [address], [place], [address], 10/28/2024 18:24:58 10/29/19 25 10/28/2024 US, obste tric, 2nd or 3rd trime ster No observ ation record ed. Lindsay [address], [place], [address], 10/28/2024 22:59:36 01/14/20 25 01/13/2025 US, obste tric, follo w-up No observ ation record ed. ELIE Montoya [address], [place], [address], 01/16/2025 19:25:04 01/14/20 25 01/13/2025 US, obste tric, follo w-up No observ ation record ed. [email or web address] [place] [address], [place], [address], 01/13/2025 17:54:59 Result Notes None recorded. Problems Name Problem SNOMED Code Status Onset Date Resolution Date Notes Provider Name and Address Organization Details Recorded Time 55199120 Active 2024 ISRAEL hurtado, [facility] 10:27:09 Rheumatoi d arthritis 97503086 Active 2024 previously on Juliette DELCID MD [address], [place], [address], [facility] 16:24:19 Problem Notes None recorded. Procedures Surgical History Date Name Laterality Status Provider Name and Address Organization Details Recorded Time 03/26/19 22 Date of Last Pap Smear completed [facility] 08/11/2024 16:48:19 10/02/18 97 transplantation of liver [facility]/11[facility] 16:51:12 Imaging Results None recorded. [...] Not Available Not Avai lable Not Available [place] 3 Fish Oil 08/11 completed Not Available Not Available Not Available Humira 08/11 completed Not Available Not Available Not Available Probiotic active Not Available Not Ruth ilable Not Available Vitals Date Recorded Body height Body mass index (BMI) Body weight Systolic And Diastolic Provider Name and Address Organization Details Last Updated DateTime 12/30/2024 160.02 cm 33.3 kg/m2 04213.37 g 116/79 mm[Hg] Dolly Kline [facility] 12/30/2024 17:32:51 Social History Question Answer Notes LastModified by [...] Or The Highest Degree You Have Received? [id number] Information not available 08/11/2024 Are There Any [...] anxious, or unable to sleep at night)? [id number] Information not available 08/11/2024 Family History Relationship Description Onset Age of this Age Resolved Age Notes LastModified by Organization Details LastModified Time Unspecified Relation Family history unknown Not available 2024 16:45:41 Medical History Condition Response Allergies (Food, seasonal, environmental ) Y Hepatitis/Liver Disease N Arthritis Y Hematologic disorders Y History of abnormal pap Y Pre-Eclampsia [...] ICD10 Code Diagnosis IMO Codes Diagnosis Note [id number] WINIFRED DELCID MD [place] [address] [address] 12/16/2024 15:55:58 12/16/2024 16:42:41 Rheumatoid arthritis 32366335 M06.9 [id number] Gestation period, 28 weeks 08823648 Z3A.28 1372571 - continue PNV [id number] WINIFRED DELCID MD [place] [address],[facility] [place] [address] 12/30/2024 17:27:04 01/02/2025 08:54:34 care status [id number] Z34.83 [id number] Health Concerns Section Related Observation LastModified by Organization Detai ls LastModified Time None Recorded Concern Status LastModified by Organization Details LastModified Time None Recorded Payers Encounter Date Sequence Insurance Name Policy Number Policy Meredith Covered Member ID Meredith Member ID Guarantor Name 12/30/2024 1 [facility] [id number] Stefanie Cortes [id number] Stefanie Cortes Notes Date Note Type Note Provider Name and Address Organization Details Recorded Time 12/30/2024 text/html Generic HPI TemplateReported by Patient WINIFRED DELCID MD [address], [place], [address], [facility] 01/02/2025 00:23:56 OBGyn Episode Ob Episode Information Episode Created Date Number of Fetuses Patient Bloodtype Patient rh Status Prepregnancy Weight lbs Domestic Partner Domestic Partner Phone Father Name [employer] Commanding Officer Status 09/02/19 25 1 O Negative OPEN Fetus Data First Name Last Name Admitted to NICU Weight (g) Sex Living Outcome Pediatric Complications Fetus ID Race Codes Race Delivery Type [id number] Problems Problem Notes Problem Name Start Date End Date Resolution Snomed Code Not e Rheumatoid arthritis 12/16/2024 [id number] previously on Humira Tino Calculation Initial Tino [...] Sound Latest Days Gestation 10/29/19 25 21 [email or web address] 09/01/2024 03/09/20 25 3 Pre- Flowsheet Flowsheet Date 09/01/2024 Garzon Score Blood Edema Fundus Height Fundus Units Glucose Ketones Leukocytes Nitrite Labor Signs Protein Cervic Dilation Cervic Effacement Cervic Station neg none Type Weight in lbs Pre/Post Dialysis Refused Weight 162.637995087164 BP Diastolic BP Location Tested BP Systolic BP Type 81 L arm 117 sitting Fetus Heart Rate Present A Present Fetus Movement A No Comments Patient presents to [facility] care. Hx of at 37 [...] Weight in lbs Pre/Post Dialysis Refused Weight 164.993725633645 BP Diastolic BP Location Tested BP Systolic BP Type 82 L arm 122 sitting Fetus Heart Rate Present A 140 Fetus Movement A No Comments Doing well, no issues. Had a bad headache a few weeks ago. No nausea, cramping or bleeding. NIPT LR, however no call on sex chromosomes. Per [place], will not repeat. Discussed with patient. Other [...] Weight in lbs Pre/Post Dialysis Refused Weight 167.133613777053 BP Diastolic BP Location Tested BP Systolic [...] Weight in lbs Pre/Post Dialysis Refused Weight 176.047711820962 BP Diastolic BP Location Tested BP Systolic [...] Weight in lbs Pre/Post Dialysis Refused Weight 184.691568460950 BP Diastolic BP Location Tested BP Systolic [...] Weight in lbs Pre/Post Dialysis Refused Weight 188.093730668810 BP Diastolic BP Location Tested BP Systolic [...] Type Weight in lbs Pre/Post Dialysis Refused 193.77517885327 BP Diastolic BP Location Tested BP Systolic [...] Type Weight in lbs Pre/Post Dialysis Refused 195.387691118718 BP Diastolic BP Location Tested BP Systolic [...] Type Weight in lbs Pre/Post Dialysis Refused 203.50496009483 BP Diastolic BP Location Tested BP Systolic [...] Weight in lbs Pre/Post Dialysis Refused Weight 199.427875529337 BP Diastolic BP Location Tested BP Systolic [...] Weight in lbs Pre/Post Dialysis Refused Weight 204.743402128759 BP Diastolic BP Location Tested BP Systolic [...] Weight in lbs Pre/Post Dialysis Refused Weight 205.246607483254 BP Diastolic BP Location Tested BP Systolic [...] Weight in lbs Pre/Post Dialysis Refused Weight 208.732944513676 BP Diastolic BP Location Tested BP Systolic [...]
--- OUTSIDE RECORDS SUMMARY | 2025-03-16 05:07 | XMS_ITS | Encounter Summary ---
Author Organization [facility] Address [address] [facility] [place] [address] Care Team Providers Care Orchid Grower Name Role Phone Lynsey Larson RN Unavailable Unavailable Dimitri Almonte MD Primary Care Provider [phone] Stephany Lott MD Unavailable [phone] Reason for Visit * Reason Onset Date Comments General 11/04/2019 Encounter Details Date Type Department Care Team (Late st Contact Info) Description 11/04/2019 Telephone [facility] [address] [place] [address] Sofia Langley MD [address] [place] [address] General Social History Tobacco Use Types Packs/Day Years Used Date Smoking Tobacco: Passive Smo ke Exposure - Never Smoker Smokeless Tobacco: Never Alcohol Use Standard Drinks/Week Comments Yes 0 (1 standard drink = 0.6 oz pur e alcohol) AUDIT-C Answer Date Recorded Q1: How often [...] on file Legal Sex Female 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 Langley that she hasbeen in close contact with an animal who tested positive for brucellosis through a blood test. She wanted to give an FYI. Patient Call Back number: [phone] documented in this encounter Plan of Treatment Upcoming Encounters Date Type Department Care Team (Late st Contact Info) Description 07/15/2025 9:40 AM CDT Office Visit [facility] - Rheumatology [address] [place] [address] [place] [phone] Zac Douglas MD [address] [place] [address] [address] [place] [address] 07/31/2025 9:00 AM CDT Office Visit [facility] - GI [address] [place] [address], [place] [address] Mana Rivera PA-C [address] [place] [address] [address] [place] [address] documented as of this encounter Goals Goal Patient Goal Type Associated Problems Recent Progress Patient-Stated? Author Medication Management General On track( 025 8:48 AM CDT) No Lynsey Larson, RN Note: Expected end date: ongoing Interventions: Take all medications as prescribed Let your doctor know right away about any changes in your medications Make sure to request a refill of your medication at least one week prior to your last dose Safety General On track( 022 9:34 AM CDT) No Viehman, Lynsey, RN Note: Expected end date: ongoing Interventions: Use appropriate and safe transfer methods Be aware of medications that could predispose you to falling Wear non-skid/rubber sole footwear Use some light at night in your room documented as of this encounter Visit Diagnoses Not on filedocumented in this encounter Care Teams Orchid Grower Relationship Specialty Start Date End Date Dimitri Almonte MD [address] [place] [address] PCP - General 09/24/19 Lynsey Larson, RN Registered Nurse 07/02/18 Stephany Lott MD [address] [place] [address] Physician Obstetrics and Gynecology 11/07/21 documented as of this encounter
--- OUTSIDE RECORDS SUMMARY | 2025-03-16 05:07 | XMS_ITS | Clinical Summary ---
Author Organization [facility] Address [address] [place] [address] Care Team Providers Care Manufacturers Representative Name Role Phone Lynsey Larson RN Unavailable Unavailable Dimitri Almonte MD Primary Care Provider [phone] Stephany Lott MD Unavailable [phone] Source Comments [facility],non-owned Affiliates and Associated Physician Practices is amultiple site organization consisting of ambulatory clinics and hospital sitesin [place], [place], [place] and [place]. This disclosure is being madepursuant to the Care Everywhere program and may not contain all information available regarding this patient. Last updated 17.[facility] Allergies Active Allergy Reactions Criticality Noted Date Comments Live Vaccines (Immunodeficiency) Other High 03/01/2016 Patient is s/p liver transplant and is immunocompromised. Should not have live vaccines. Medications * Be aware that medications may not be up to date on this document. Alwaysverify current medications with the patient. Lactobacillus (PROBIOTIC ACIDOPHILUS) CAPS Take 1 (one) capsule by mouth once daily Active Vuozphje-Vqo-U e-FA (PRE-TUYET FORMULA) TABS Take 1 tablet by mouth once daily Active calcipotriene (DOVONEX) 0.005 % solution Apply 1 Dose to affected area once daily 0 Active fish oil/omega-3 fatty acids (PROMEGA;CARDI -OMEGA 3) 1000 MG capsule Take 1 (one) capsule by mouth daily with food Active vitamin D, cholecalcifero l, 50 MCG (2000 UT) tablet Take 1 (one) tablet by mouth once daily Active mometasone (ELOCON) 0.1 % cream Apply 1 Dose to affected area once daily as needed 1 Active cetirizine (ZyrTEC) 10 MG tablet Take 1 (one) tablet by mouth once daily Active Humira, 2 Pen, 40 MG/0.4ML injectionIndic ations:Psoriat ic arthritis (HCC) INJECT 40MG SUBCUTANEOUSLY EVERY 2 WEEKS 2.4 mL 3 5 Active tacrolimus (Prograf) 1 MG capsule TAKE 2 CAPSULES BY MOUTH TWICE DAILY ALONG WITH 1 TACROLIMUS 0.5 MG CAPSULE TWICE DAILY DIRECTED 360 capsule 3 5 Active tacrolimus (Prograf) 0.5 MG capsule TAKE 1 CAPSULE BY MOUTH TWICE DAILY ALONG WITH 2 TACROLIMUS 1 MG CAPSULES TWICE DAILY DIRECTED 180 capsule 3 5 Active Active Problems Patient Care Coordination No te Formatting of this note migh t be different from the original. 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 use of non -steroidal anti-inflammatories (NSAID) 12/27/2020 History of liver transplant 07/20/2020 Encounter for aftercare following liver transpla nt 05/23/2016 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 use of immunosuppressive drug 05/23/2016 Encounters Date Type Department Care Team Description 03/06/2025 Orders Only [facility] - GI [address] [place] [address] Mana Rivera PA-C History of liver transplant (CMS/HCC); Encounter for aftercare following liver transplant (HCC); 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 use of immunosuppressive drug 02/06/2025 Orders Only [facility] - GI [address] [place] [phone] Mana Rivera PA-C History of liver transplant (CMS/HCC); Encounter for aftercare following liver transplant (HCC); 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 use of immunosuppressive drug 01/09/2025 Orders Only [facility] - GI [address] [facility], [place] [address] Mana Rivera PA-C History of liver transplant (CMS/HCC); Encounter for aftercare following liver transplant (HCC); longterm current use of immunosuppressive drug from Last 3 Months Immunizations Immunization Administration Dates Next Due Covid [employer] primary monoval ent 12+ yr 0.3mL Purple cap 12/28/2020,12/07/2020 DTP, HISTORIC VACCINE 05/22/1996,1995 DTaP VACCINE IM (6wk-6yrs) 04/15/1998,01/21/1998 HEP B VACCINE, PED/ADOL 05/22/1996,1995, HIB VACCINE 04/15/1998,01/21/1998 INFLUENZA VACCINE, QUADR. (F LUZONE; FLULAVAL; FLUARIX; AFLURIA QUADRIVALENT; 6MO+), 0.5 ML (IIV4) 02/26/2015 MMR VACCINE 01/21/1998 POLIO OPV 01/21/1998,05/22/1996,1995 TDAP (7yrs+) 11/13/2019 Family History Medical History Relation Name Comments Cancer - Lung Mother Cancer Paternal Grandmother Relation Name Status Comments Mother Paternal Grandmother Social History Tobacco Use Types Packs/Day Years Used Date Smoking Tobacco: Never Passive Smoke Exposure: Yes Smokeless Tobacco: Never Tobacco Cessation:Counseling Given: Not Answered Alcohol Use Standard Drinks/Week Comments Not Currently [...] on file Legal Sex Female 5:37 AM 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 Gender Identity Not on file Sexual Orientation Not on file Last Filed Vital Signs Vital Sign [place] Time Taken Comments Blood Pressure 142/85 07/25/2024 8:50 AM CDT Pulse 104 07/25/2024 8:48 AM CDT Temperature 37.2 C (98.9 F) 07/25/2024 8:48 AM CDT Respiratory Rate 20 07/20/2023 10:02 AM CDT Oxygen Saturation 97% 07/25/2024 8:48 AM CDT Inhaled Oxygen Concentration - - Weight 72.1 kg (159 lb) 07/25/2024 8:48 AM CDT Height 160 cm (5' 3) 07/16/2024 8:20 AM CDT Body Mass Index 28.17 07/16/2024 8:20 AM CDT Plan of Treatment Upcoming Encounters Date Type Department Care Team (Late st Contact Info) Description 07/15/2025 9:40 AM CDT Office Visit [facility] - Rheumatology [address] [place] [address] [place] [phone] Zac Douglas MD [address] [place] [address] [address] [place] [address] 07/31/2025 9:00 AM CDT Office Visit [facility] - GI [address] [place] [address], [place] [address] Mana Rivera PA-C [address] [place] [address] [address] [place] [address] Health Maintenance Due Date Last Done Comments HIV SCREENING 06/10/2010 PNEUMOCOCCAL VACCINE (1 of 2 - PCV) 06/10/2014 ZOSTER VACCINE (1 of 2) 06/10/2014 PAP SMEAR 06/10/2016 COVID-19 VACCINE (3 - Pfizer risk series) 01/25/2021 12/28/2020, 12/07/2020 HPV VACCINE (1 - Risk 3-dose SCDM series) 06/10/2022 INFLUENZA VACCINE (#1) 2024 02/26/2015 DTAP/TDAP/TD VACCINES (5 - Td or Tdap) 11/12/2029 11/13/2019, 04/15/1998, 01/21/1998, Additional history exists HEPATITIS B VACCINE Completed 05/22/1996, 1995, 1995 HIB VACCINE Completed 04/15/1998, 01/21/1998 HEPATITIS C SCREENING Completed 04/04/2023, DEPRESSION SCREENING Completed 07/16/2024, 07/20/2023, 11/09/2021 MENINGOCOCCAL (Group B) VACCINE SHARED DECISION-MAKING Aged Out No longer eligible based on patient's age to complete this topic MENINGOCOCCAL GROUPS A/C/Y/W VACCINE Aged Out No longer eligible based on patient's age to complete this topic Goals Goal Patient Goal Type Associated Problems [...] 022 9:34 AM CDT) No Lynsey Larson, RN Note: Expected end date: ongoing Interventions: Use appropriate and safe transfer methods Be aware of medications that could predispose you to falling Wear non-skid/rubber sole footwear Use some light at night in your room Procedures Procedure Name Priority Date/Time Associated Diagnosis Comments TACROLIMUS LEVEL Routine 02/02/2025 9:22 AM CAN DRYER History of liver transplant (CMS/HCC) Encounter for aftercare following liver transplant (HCC) 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 use of immunosuppressive drug CBC W AUTO DIFFERENTIAL Routine 02/02/2025 9:22 AM CAN DRYER History of liver transplant (CMS/HCC) Encounter for aftercare following liver transplant (HCC) 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 use of immunosuppressive drug COMPREHENSIVE METABOLIC PANEL Routine 02/02/2025 9:22 AM CAN DRYER History of liver transplant (CMS/HCC) Encounter for aftercare following liver transplant (HCC) 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 Optimal blood drug levels are influenced by type of transplant, patient response, time post- transplant, co-administration of other drugs, and drug formulation. The following trough range is a suggested guideline: 5.0-20.0 mcg/L. Test Performed at: [facility] [address] [place] [address] JENNIFER RED MD Blood BLOOD SPECIMEN / Unknown 02/02/2025 9:22 AM CAN DRYER 02/02/2025 9:23 AM CAN DRYER Mana Rivera PA-C LAB - THERAPEUTIC DRUG MONITORING ORDERABLES Final Result [facility] [address] [place] [address] * (ABNORMAL) CBC WITH DIFFERENTIAL (02/02/2025 9:22 AM CAN DRYER) Pathologist [facility] White Blood Cell Count 14.3(H) 3.8 - 10.8 Thousand/ uL [facility] RBC 4.32 3.80 - 5.10 Million/u L [facility] Hemoglobin 12.2 11.7 - 15.5 g/dL [facility] Hematocrit 37.9 35.0 - 45.0 % [facility] MCV 87.7 80.0 - 100.0 fL [facility] MCH 28.2 27.0 - 33.0 pg [facility] MCHC 32.2 32.0 - 36.0 g/dL [facility] Comment: For adults, a slight decrease in the calculated MCHC value (in the range of 30 to 32 g/dL) is most likely not clinically significant; however, it should be interpreted with caution in correlation with other red cell parameters and the patient's clinical condition. RDW 12.5 11.0 - 15.0 % [facility] Platelet Count 179 140 - 400 Thousand/ uL [facility] MPV 12.7(H) 7.5 - 12.5 fL [facility] Neutrophil Absolute 60151(H) 1500 - 7800 cells/uL [facility] Absolute Bands [facility] Metamyelocytes Absolute [facility] Myelocytes Absolute [facility] Absolute Prolymphocytes [facility] Lymphocytes Absolute 1988 850 - 3900 cells/uL [facility] Absolute Monocytes 901 200 - 950 cells/uL [facility] Eosinophils Absolute 186 15 - 500 cells/uL [facility] Basophils Absolute 14 0 - 200 cells/uL [facility] Absolute Blasts [facility] nRBC Absolute [facility] Granulocytes % 78.4 % [facility] Band Neutrophil [facility] Metamyelocytes [facility] Myelocytes [facility] Promyelocytes [facility] Lymphocytes % 13.9 % [facility] Lymphocyte Reactive [facility] Monocytes % 6.3 % [facility] Eosinophils % 1.3 % [facility] Basophils % 0.1 % [facility] Comment: Test Performed at: [place] [address] JENNIFER RED MD Blasts [facility] nRBC [facility] Comments [facility] Comment: Test Performed at: [facility] [place] [address] JENNIFER RED MD Blood BLOOD SPECIMEN / Unknown 02/02/2025 9:22 AM CAN DRYER 02/02/2025 9:23 AM CAN DRYER Mana Rivera PA-C LAB - HEMATOLOGY ORDERA BLES Final Result [facility] [address] [place] [address] * (ABNORMAL) COMPREHENSIVE METABOLIC PANEL (02/02/2025 9:22 AM CAN DRYER) Glucose 97 65 - 99 mg/dL [facility] Comment: Fasting reference interval BUN 9 7 - 25 mg/dL [facility] Creatinine 0.52 0.50 - 0.96 mg/dL [facility] eGFR by Cystatin C 129 > OR = 60 mL/min/1. 73m2 [facility] BUN/Creatinine Ratio SEE NOTE: 6 - 22 (calc) [facility] Comment: Not Reported: BUN and Creatinine are within reference range. Sodium 137 135 - 146 mmol/L [facility] Potassium 4.1 3.5 - 5.3 mmol/L [facility] Chloride 103 98 - 110 mmol/L [facility] CO2 27 20 - 32 mmol/L [facility] Calcium 9.0 8.6 - 10.2 mg/dL [facility] Protein Total 6.0(L) 6.1 - 8.1 g/dL [facility] Albumin 3.3(L) 3.6 - 5.1 g/dL [facility] Globulin Total 2.7 1.9 - 3.7 g/dL (calc) [facility] Albumin/Globulin Ratio 1.2 1.0 - 2.5 (calc) [facility] Bilirubin Total 0.3 0.2 - 1.2 mg/dL [facility] Alkaline Phosphatase 107 31 - 125 U/L [facility] AST 12 10 - 30 U/L [facility] ALT 11 6 - 29 U/L [facility] Comment: Test Performed at: [facility] [address] [place] [address] JENNIFER RED MD Blood BLOOD SPECIMEN / Unknown 02/02/2025 9:22 AM CAN DRYER 02/02/2025 9:23 AM CAN DRYER us Mana Rivera PA-C LAB - CHEMISTRY ORDERAB LES Final Result Performing Organization Address City/[facility] Co de Phone Number [facility] [address] [place] [address] * HEPATITIS C AB SCREEN RFLX NAAT QUANT (04/04/2023 9:57 AM CAN DRYER) Hepatitis C Antibody Non-react nkechi Non-reac tive 04/04/2023 11:03 AM CAN DRYER [facility] Comment:Hepatitis C Antibody screen indicates no serologic evidence of past or current infection with Hepatitis C Virus. Patients with unexplained liver disease who are immunocompromised or suspected of having acute Hepatitis C infection may benefit from Nucleic Acid Test (MARIELA) for Hepatitis C Viral RNA to confirm Hepatitis C status. Blood BLOOD SPECIMEN / Unknown Lab Venipuncture / Unknown 04/04/2023 9:57 AM CAN DRYER 04/04/2023 10:14 AM CAN DRYER Zac Douglas MD LAB - CHEMISTRY ORDERABLES Fi nal Result Performing Organization Address City/[facility]/ZIP Co de Phone Number [facility] [address] [place] [address], [facility] [phone] from Last 3 Months or Most Recently Relevant to Health Maintenance Insurance [facility] [id number] [id number] Care Teams Manufacturers Representative Relationship Specialty Start Date End Date Dimitri Almonte MD [address] [place], [place] [id number] PCP - General 09/24/19 Lynsey Larson, TOMA Registered Nurse 07/02/18 Stephany Lott MD [address] [place] [address] Physician Obstetrics and Gynecology 11/07/21
--- OUTSIDE RECORDS SUMMARY | 2025-03-16 05:07 | XMS_ITS | Clinical Summary ---
Author Organization [facility] Address [address] [place] [id number] Care Team Providers Care Stroke Coordinator Name Role Phone Unavailable Primary Care Provider Unavailabl e Allergies No known active allergies Medications TACROLIMUS ORAL Take 2.5 mg by mouth 2 times daily. Active cetirizine (ZyrTEC) 10 mg tablet Take 10 mg by mouth daily. Active 26/iron ps/folic/dha (PNV-FIRST ORAL) Take 1 Tablet by mouth daily. Active fish oil/borage/flax/ om3,6,9 1 (OMEGA 3-6-9 ORAL) Take 1 Tablet by mouth daily. Active ergocalciferol, vitamin D2, (VITAMIN D ORAL) Take 1 Tablet by mouth daily. Active Lactobac no.41/Bifidobact no.7 (PROBIOTIC-10 ORAL) Take 1 Tablet by mouth daily. Active aspirin (ECOTRIN EC) 81 mg Tablet, Delayed Release (E.C.) Take 81 mg by mouth daily. Active Active Problems Problem Noted Date Diagnosed Date History of liver transplant 05/16/2022 Psoriatic arthritis 05/16/2022 Family History Medical History Relation Name Comments Cancer Mother Cancer Paternal Grandmother Relation Name Status Comments Mother Paternal Grandmother Social History Tobacco Use Types Packs/Day Years Used Date Smoking Tobacco: Never Smokeless Tobacco: Never Tobacco Cessation:Counseling Given: Not Answered Alcohol Use Standard Drinks/Week Comments Not Currently 0 (1 standard drink = 0.6 oz pur e alcohol) Comments No Sex and Gender Information Value Date Recorded Sex Assigned at Not on file 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 Gender Identity Not on file Sexual Orientation Not on file Last Filed Vital Signs Vital Sign [place] Time Taken Comments Blood Pressure 108/78 05/16/2022 12:57 PM CHEMICAL PLANT WORKER Pulse 103 05/16/2022 12:57 PM CHEMICAL PLANT WORKER Temperature - - Respiratory Rate - - Oxygen Saturation 98% 05/16/2022 12:57 PM CHEMICAL PLANT WORKER Inhaled Oxygen Concentration - - Weight 90.3 kg (199 lb) 07/25/2022 11:02 AM CDT Height 160 cm (5' 3) 07/25/2022 11:02 AM CDT Body Mass Index 35.25 07/25/2022 11:02 AM CDT Plan of Treatment Health Maintenance Due Date Last Done Comments CERVICAL CANCER SCREENING 06/10/2016 HPV/Cotest (21-29) 06/10/2016 PAP SMEAR 06/10/2016 INFLUENZA VACCINE (#1) 2024 02/26/2015 DTAP/TDAP/TD VACCINES (5 - T d or Tdap) 11/12/2029 11/13/2019, 04/15/1998, 01/21/1998, Additional history exists HEPATITIS B VACCINES Completed 05/22/1996, 1995, 1995 HPV VACCINES (No Doses Required) Completed Insurance
--- OUTSIDE RECORDS SUMMARY | 2025-03-16 05:07 | XMS_ITS | Continuity of Care Document ---
Author Organization [facility] Address [address] [place] [address] Care Team Providers Care [employer] Research Scientist Name Role Phone MADRID, BRODERICK Primary Care Provider [phone] Assessment No assessment recorded. Plan of Treatment [...] [facility] [address], [place], [address], 09/08/2024 22:51:39 09/09/19 25 09/08/2024 [UNIT Y] BLAINE ER SCREE N alpha-thalas semia carrier screen NEGATI VE normal Not Available [facility] [address], [place], [address], 09/08/2024 22:51:39 09/09/19 25 09/08/2024 [UNIT Y] BLAINE ER SCREE N cystic fibrosis carrier screen NEGATI VE normal Not Available [facility] [address], [place], [address], 09/08/2024 22:51:39 09/09/19 25 09/08/2024 [UNIT Y] BLAINE [place] spinal muscular atrophy carrier screen NEGATI VE 3 SMN1 copies , SNP not presen t normal Not Available [facility] [address], [place], [address], 09/08/2024 22:51:39 09/09/19 25 09/08/2024 [UNIT Y] BLAINE [place] for detailed report, see pdf See PDF normal Not Available [facility] [address], [place], [address], 09/08/2024 22:51:39 09/13/19 25 09/12/2024 [UNIT Y] ANEUP LOIDY NIPT redraw requested? No normal Not Available [facility] [address], [place], [address], 09/12/2024 00:04:22 09/13/19 25 09/12/2024 [UNIT Y] ANEUP LOIDY NIPT fraction 9.1% normal Not Available [facility] [address], [place], [address], 09/12/2024 00:04:22 09/13/19 25 09/12/2024 [UNIT Y] ANEUP LOIDY NIPT 22Q11.2 microdeletio n LOW RISK <1 in 10,000 normal Not Available [facility] [address], [place], [address], 09/12/2024 00:04:22 09/13/19 25 09/12/2024 [UNIT Y] [...] Available [facility] [address], [place], [address], 09/12/2024 00:04:22 09/13/19 25 09/12/2024 [UNIT Y] ANEUP LOIDY NIPT sex chromosome aneuploidy NO CALL abnormal Not Available [facility] [address], [place], [address], 09/12/2024 00:04:22 09/13/19 25 09/12/2024 [UNIT Y] ANEUP LOIDY NIPT monosomy X NO CALL abnormal Not Available [facility] [address], [place], [address], 09/12/2024 00:04:22 09/13/19 25 09/12/2024 [UNIT Y] ANEUP LOIDY NIPT trisomy 13 LOW RISK <1 in 10,000 normal Not Available [facility] [address], [place], [address], 09/12/2024 00:04:22 09/13/19 25 09/12/2024 [UNIT Y] ANEUP LOIDY NIPT trisomy 18 LOW RISK <1 in 10,000 normal Not Available [facility] [address], [place], [address], 09/12/2024 00:04:22 09/13/19 25 09/12/2024 [UNIT Y] ANEUP LOIDY NIPT trisomy 21 LOW RISK <1 in 10,000 normal Not Available [facility] [address], [place], [address], 09/12/2024 00:04:22 09/13/19 25 09/12/2024 [UNIT Y] ANEUP LOIDY NIPT sex N/A abnormal Not Available [facility] [address], [place], [address], 09/12/2024 00:04:22 09/13/19 25 09/12/2024 [UNIT Y] ANEUP LOIDY NIPT gestation SINGLE TON normal Not Available [facility] [address], [place], [address], 09/12/2024 00:04:22 09/13/19 25 09/12/2024 [UNIT Y] ANEUP LOIDY NIPT for detailed report, see pdf See PDF normal Not Available [facility] [address], [place], [address], 09/12/2024 00:04:22 09/02/19 25 09/01/2024 CBC W/DIF F WBC 11.5 10'3/ uL 3.5-10 .5 high Not Available [facility] (Lab) [address] , [place], [address], 09/02/2024 13:48:30 09/02/19 25 09/01/2024 CBC W/DIF F RBC 4.99 10'6/ uL (based on docume nted legal sex) 3.80-5 .20 Not Available [facility] (Lab) [address] , [place], [address], 09/02/2024 13:48:30 09/02/19 25 09/01/2024 CBC W/DIF F HGB 14.4 g/dL (based on docume nted legal sex) 11.6-1 5.4 Not Available [facility] (Lab) [address] , [place], [address], 09/02/2024 13:48:30 09/02/19 25 09/01/2024 CBC W/DIF F HCT 42.5 % (based on docume nted legal sex) 34.0-4 5.0 Not Available [facility] (Lab) [address], [place], [address], 09/02/2024 13:48:30 09/02/19 25 09/01/2024 CBC W/DIF F MCV 85.2 fL 80.0-9 9.0 Not Available [facility] (Lab) [address] [facility], [place], [address], 09/02/2024 13:48:30 09/02/19 25 09/01/2024 CBC W/DIF F MCH 28.9 pg 27.0-3 4.0 Not Available [facility] (Lab) [address] [facility], [place], [address], 09/02/2024 13:48:30 09/02/19 25 09/01/2024 CBC W/DIF F MCHC 33.9 g/dL 32.0-3 5.5 Not Available [facility] (Lab) [address] [facility], [place], [address], 09/02/2024 13:48:30 09/02/19 25 09/01/2024 CBC W/DIF F RDW 13.2 % 11.0-1 5.0 Not Available [facility] (Lab) [address] [facility], [place], [address], 09/02/2024 13:48:30 09/02/19 25 09/01/2024 CBC W/DIF F plt 208 10'3/ uL 150-40 0 Not Available [facility] (Lab) [address] [facility], [place], [address], 09/02/2024 13:48:30 09/02/19 25 09/01/2024 CBC W/DIF F MPV 12.3 fL 8.8-12 .1 high Not Available [facility] (Lab) [address] [facility], [place], [address], 09/02/2024 13:48:30 09/02/19 25 09/01/2024 CBC W/DIF F NRBC's 0.0 % 0.0 Not Available [facility] (Lab) [address] [place], [address], 09/02/2024 13:48:30 09/02/19 25 09/01/2024 CBC W/DIF F absolute NRBCs 0.0 10'3/ uL no refere nce range establ ished Not Available [facility] (Lab) [address] [facility], [place], [address], 09/02/2024 13:48:30 09/02/19 25 09/01/2024 CBC W/DIF F neutrophils 70.5 % 34.0-7 3.0 Not Available [facility] (Lab) [address] [facility], [place], [address], 09/02/2024 13:48:30 09/02/19 25 09/01/2024 CBC W/DIF F lymphocytes 21.9 % 15.0-5 0.0 Not Available [facility] (Lab) [address] [facility], [place], [address], 09/02/2024 13:48:30 09/02/19 25 09/01/2024 CBC W/DIF F monocytes 5.8 % 1.0-15 .0 Not Available [facility] (Lab) [address] [facility], [place], [address], 09/02/2024 13:48:30 09/02/19 25 09/01/2024 CBC W/DIF F eosinophils 1.3 % 0.0-8. 0 Not Available [facility] (Lab) [address] [place], [address], 09/02/2024 13:48:30 09/02/19 25 09/01/2024 CBC W/DIF F basophils 0.2 % 0.0-2. 0 Not Available [facility] (Lab) [address] [place], [address], 09/02/2024 13:48:30 09/02/19 25 09/01/2024 CBC W/DIF [...] separ ately if prese nt. Not Available [facility] (Lab) [address] [facility], [place], [address], 09/02/2024 13:48:30 09/02/19 25 09/01/2024 CBC W/DIF F absolute neutrophils 8.1 10'3/ uL 1.5-8. 0 high Not Available [facility] (Lab) [address] [facility], [place], [address], 09/02/2024 13:48:30 09/02/19 25 09/01/2024 CBC W/DIF F absolute lymphocytes 2.5 10'3/ uL 1.0-4. 0 Not Available [facility] (Lab) [address] [facility], [place], [address], 09/02/2024 13:48:30 09/02/19 25 09/01/2024 CBC W/DIF F absolute monocytes 0.7 10'3/ uL 0.2-1. 0 Not Available [facility] (Lab) [address] [facility], [place], [address], 09/02/2024 13:48:30 09/02/19 25 09/01/2024 CBC W/DIF F absolute eosinophils 0.2 10'3/ uL 0.0-0. 6 Not Available [facility] (Lab) [address] [facility], [place], [address], 09/02/2024 13:48:30 09/02/19 25 09/01/2024 CBC W/DIF F absolute basophils 0.0 10'3/ uL 0.0-0. 3 Not Available [facility] (Lab) [address] [facility], [place], [address], 09/02/2024 13:48:30 09/02/19 25 09/01/2024 CBC W/DIF [...] benand book. nm.or g/gen derx Not Available [facility] (Lab) [address] [facility], [place], [address], 09/02/2024 13:48:30 09/02/19 25 09/01/2024 TYPE/ RH/SC REEN ABO/Rh type O NEG Not Available [facility] (Lab) [address] [facility], [place], [address], 09/02/2024 13:48:30 09/02/19 25 09/01/2024 TYPE/ RH/SC REEN antibody screen NEG Not Available [facility] (Lab) [address] [facility], [place], [address], 09/02/2024 13:48:30 09/02/19 25 09/01/2024 TYPE/ RH/SC REEN exp date 2024 23:59 Not Available [facility] (Lab) [address] [place], [address], 09/02/2024 13:48:30 09/02/1909/01/2024 HIV 1/2 ANTIG EN/AN TIBOD Y, REFLE X CONFI RMATI ON HIV antigen/anti body Nonrea ctive nonrea ctive HIV-1 antig en and HIV-1 /HIV- 2 antib odies were not detec edouard. No labor atory evide nce of HIV infec tion. Not Available [facility] (Lab) [address] [facility], [place], [address], 09/02/2024 13:48:31 09/02/19 25 09/01/2024 HEPAT ITIS B SURFA CE ANTIG EN hepatitis B surface antigen Non-re active non-re active This assay was perfo rmed using [employer] reage nts and test kits. Value s obtai blaine with other assay metho ds or kits canno t be used inter stover eably . Not Available [facility] (Lab) [address] [facility], [place], [address], 09/02/2024 13:48:31 09/02/19 25 09/01/2024 HEPAT ITIS C ANTIB MARV SCREE N, REFLE X TO CONFI RMATI ON hepatitis C antibody Non-re active non-re active Antib odies to HCV Not Detec edouard, does not exclu de the possi bilit y of expos ure to HCV. Not Available [facility] (Lab) [address] [facility], [place], [address], 09/02/2024 13:48:31 09/02/19 25 09/01/2024 RUBEL LA IGG ANTIB MARV, QUANT rubella antibodies, IgG Reacti ve reacti ve Not Available [facility] (Lab) [address] [place], [address], 09/02/2024 13:48:32 09/02/19 25 09/01/2024 RUBEL LA IGG ANTIB MARV, QUANT rubella antibodies, IgG quant 12.2 IU/mL >=10 Non-r eacti ve (Non- Immun e) <10 IU/mL React nkechi (Immu ne) > or = 10 IU/mL Not Available [facility] (Lab) [address] [place], [address], 09/02/2024 13:48:32 09/02/19 25 09/01/2024 RPR SCREE N, REFLE X TITER /CONF IRMAT ION RPR qualitative Nonrea ctive nonrea ctive Not Available [facility] (Lab) [address] [place], [address], 09/02/2024 13:48:32 09/02/19 25 09/01/2024 HEMOG LOBIN [...] >8.0% Actio n sugge sted Not Available [facility] (Lab) [address], [place], [address], 09/02/2024 13:48:32 09/02/1909/01/2024 CULTU RE: URINE result report SEE RESULT S BELOW Test: Cultu re: Urine Speci men Sourc e: Urine Voide d Speci men Type: Urine Speci men Date: 025 1116 Resul t Date: 2024 Resul t Statu s: Final resul t Abnor mal: No Resul ting Lab: [facility] [address] [facility] [address] Tel: CULTU RE ----- ----- ----- --- No growt h in 1 day (dete ction level of 10,00 0 colon ies / ml.) Not Available [facility] (Lab) [address], [place], [address], 09/02/2024 21:37:00 09/02/19 25 09/01/2024 drug scree n, urine Amphetamines : negati ve Not Available [facility] [address], [place], [address], 09/01/2024 11:12:32 09/02/19 25 09/01/2024 drug scree n, urine Cannabinoids : negati ve Not Available [facility] [address], [place], [address], 09/01/2024 11:12:32 09/02/19 25 09/01/2024 drug scree n, urine Cocaine: negati ve Not Available [facility] [address], [place], [address], 09/01/2024 11:12:32 09/02/19 25 09/01/2024 drug scree n, urine Opiates: negati ve Not Available [facility] [address], [place], [address], 09/01/2024 11:12:32 09/02/19 25 09/01/2024 drug scree n, urine Phenocyclidi ne: negati ve Not Available [facility] [address], [place], [address], 09/01/2024 11:12:32 09/02/19 25 09/01/2024 drug scree n, urine Barbiturates : negati ve Not Available [facility] [address], [place], [address], 09/01/2024 11:12:32 09/02/19 25 09/01/2024 drug scree n, urine Benzodiazepi loan: negati ve Not Available [facility] [address], [place], [address], 09/01/2024 11:12:32 09/02/19 25 09/01/2024 drug scree n, urine Ethanol: negati ve Not Available [facility] [address], [place], [address], 09/01/2024 11:12:32 09/02/19 25 09/01/2024 drug scree n, urine Hallucinogen s: negati ve Not Available [facility] [address], [place], [address], 09/01/2024 11:12:32 09/02/19 25 09/01/2024 drug scree n, urine Inhalants: negati ve Not Available [facility] [address], [place], [address], 09/01/2024 11:12:32 09/02/19 25 09/01/2024 drug scree n, urine Anabolic Steroids: negati ve Not Available [facility] [address], [place], [address], 09/01/2024 11:12:32 09/02/19 25 09/01/2024 drug scree n, urine Other: negati ve Not Available [facility] [address], [place], [address], 09/01/2024 11:12:32 02/11/20 25 02/10/2025 CULTU RE: [...] t Abnor mal: Yes Resul ting Lab: [facility] [address] [facility] [address] Tel: CULTU RE ----- ----- ----- --- Posit nkechi for Strep tococ cus agala ctiae (Grou p B) (Abno rmal) Clind amyci n susce ptibl e, eryth romyc in resis tant. The clind amyci n induc tion test (D-t est) is negat nkechi, there fore clind amyci n shoul d be clini natasha effec tive again st this isola te. Not Available [facility] (Lab) [address], [place], [address], 02/14/2025 16:16:12 09/02/19 25 09/01/2024 US, obste tric, nucha l trans lucen cy No observ ation record ed. [facility] [address], [place], [address], 09/01/2024 18:48:24 09/02/19 25 09/01/2024 US, obste tric, nucha l trans lucen cy No observ ation record ed. [email or web address] [facility] [address], [place], [address], 09/02/2024 11:29:46 10/29/19 25 10/28/2024 US, obste tric, 2nd or 3rd trime ster No observ ation record ed. [facility] [address], [place], [address], 10/28/2024 18:24:58 10/29/19 25 10/28/2024 US, obste tric, 2nd or 3rd trime ster No observ ation record ed. [email or web address] [facility] [address], [place], [address], 10/28/2024 22:59:36 01/14/20 25 01/13/2025 US, obste tric, follo w-up No observ ation record ed. ELIE [facility] [address], [place], [address], 01/16/2025 19:25:04 01/14/20 25 01/13/2025 US, obste tric, follo w-up No observ ation record ed. [email or web address] [facility] [address], [place], [address], 01/13/2025 17:54:59 Result Notes None recorded. Problems Name Problem SNOMED Code Status Onset Date Resolution Date Notes Provider Name and Address Organization Details Recorded Time 42881208 Active 2024 ISRAEL Nettles bryant, [facility] 10:27:09 Rheumatoi d arthritis 17934637 Active 2024 previously on Juliette DELCID MD [address], [place], [address], [facility] 5 16:24:19 Problem Notes None recorded. Procedures Surgical History Date Name Laterality Status Provider Name and Address Organization Details Recorded Time 03/26/19 22 Date of Last Pap Smear completed [facility] 08/11/2024 16:48:19 10/02/18 97 transplantation of liver completed Deena [facility] 08/11/2024 16:51:12 Imaging Results None [...] Not Available Not Avai lable Not Available [place] 3 Fish Oil 08/11 completed Not Available Not Available Not Available Humira 08/11 completed Not Available Not Available Not Available Probiotic active Not Available Not Ruth ilable Not Available Vitals Date Recorded Body weight Body mass index (BMI) Body height Systolic And Diastolic Provider Name and Address Organization Details Last Updated DateTime 02/10/2025 82134.251 11 g 36 kg/m2 160.02 cm 116/79 mm[Hg] Dolly Eliud [facility] 02/10/2025 14:12:35 Social History Question Answer Notes LastModified by [...] Or The Highest Degree You Have Received? [id number] Information not available 08/11/2024 Are There Any [...] anxious, or unable to sleep at night)? [id number] Information not available 08/11/2024 Family History Relationship [...] ICD10 Code Diagnosis IMO Codes Diagnosis Note [id number] WINIFRED DELCID MD [facility] [address],[place] [address] 01/13/2025 17:17:00 01/13/2025 17:52:49 Observational assessment 237562204 Z03.74 Z3A.32 6840622 [id number] WINIFRED DELCID MD [facility] [address],[place] [address] 01/13/2025 17:17:32 01/13/2025 17:58:06 Rheumatoid arthritis 99443832 M06.9 [id number] Gestation period, 32 weeks 1297467 Z3A.32 8398751 327359 WINIFRED DELCID MD [facility] [address],[place] [address] 01/27/2025 16:31:09 01/27/2025 17:18:11 Rheumatoid arthritis 80001425 M06.9 [id number] Gestation period, 34 weeks 83038336 Z3A.34 2802031 [id number] WINIFRED DELCID MD [facility] [address],[place] [address] 02/10/2025 13:52:17 02/10/2025 14:38:34 care status 962844183 Z34.83 [id number] Health Concerns Section Related Observation LastModified by Organization Detai ls LastModified Time None Recorded Concern Status LastModified by Organization Details LastModified Time None Recorded Payers Encounter Date Sequence Insurance Name Policy Number Policy Meredith Covered Member ID Meredith Member ID Guarantor Name 02/10/2025 1 [facility] [id number] Stefanie Cortes [id number] Stefanie Cortes Notes Date Note Type Note Provider Name and Address Organization Details Recorded Time 02/10/2025 text/html Generic HPI TemplateReported by Patient WINIFRED DELCID MD [address], [place], [address], [facility] 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 Status 09/02/19 25 1 O Negative OPEN Fetus Data First Name Last Name Admitted to NICU Weight (g) Sex Living Outcome Pediatric Complications Fetus ID Race Codes Race Delivery Type [id number] Problems Problem Notes Problem Name Start Date End Date Resolution Snomed Code Not e Rheumatoid arthritis 12/16/2024 27011268 previously on Humira Tino Calculation Initial Tino [...] Sound Latest Days Gestation 10/29/19 25 21 [email or web address] 09/01/2024 03/09/20 25 3 Pre-hiram Flowsheet Flowsheet Date 09/01/2024 Garzon Score Blood Edema Fundus Height Fundus Units Glucose Ketones Leukocytes Nitrite Labor Signs Protein Cervic Dilation Cervic Effacement Cervic Station neg none Type Weight in lbs Pre/Post Dialysis Refused Weight 162.165465138361 BP Diastolic BP Location Tested BP Systolic BP Type 81 L arm 117 sitting Fetus Heart Rate Present A Present Fetus Movement A No Comments Patient presents to [facility] care. Hx of at 37 weeks, MIL [...] Weight in lbs Pre/Post Dialysis Refused Weight 164.294533213151 BP Diastolic BP Location Tested BP Systolic BP Type 82 L arm 122 sitting Fetus Heart Rate Present A 140 Fetus Movement A No Comments Doing well, no issues. Had a bad headache a few weeks ago. No nausea, cramping or bleeding. NIPT LR, however no call on sex chromosomes. Per [place], will not repeat. Discussed with patient. Other [...] Weight in lbs Pre/Post Dialysis Refused Weight 167.300382545040 BP Diastolic BP Location Tested BP Systolic [...] Weight in lbs Pre/Post Dialysis Refused Weight 176.583408159512 BP Diastolic BP Location Tested BP Systolic [...] Weight in lbs Pre/Post Dialysis Refused Weight 184.648446429888 BP Diastolic BP Location Tested BP Systolic [...] Weight in lbs Pre/Post Dialysis Refused Weight 188.385985513292 BP Diastolic BP Location Tested BP Systolic [...] Type Weight in lbs Pre/Post Dialysis Refused 193.76150781034 BP Diastolic BP Location Tested BP Systolic [...] Type Weight in lbs Pre/Post Dialysis Refused 195.144595992796 BP Diastolic BP Location Tested BP Systolic [...] Type Weight in lbs Pre/Post Dialysis Refused 203.89582736880 BP Diastolic BP Location Tested BP Systolic [...] Weight in lbs Pre/Post Dialysis Refused Weight 199.930555920043 BP Diastolic BP Location Tested BP Systolic [...] Weight in lbs Pre/Post Dialysis Refused Weight 204.376680027239 BP Diastolic BP Location Tested BP Systolic [...] Weight in lbs Pre/Post Dialysis Refused Weight 205.171228146809 BP Diastolic BP Location Tested BP Systolic [...] Weight in lbs Pre/Post Dialysis Refused Weight 208.381520474846 BP Diastolic BP Location Tested BP Systolic [...]
--- OUTSIDE RECORDS SUMMARY | 2025-03-16 05:07 | XMS_ITS | Continuity of Care Document ---
Author Organization [facility] Address [address] [place] [address] Care Team Providers Care Handcrew Foreman Name Role Phone MADRID, BRODERICK Primary Care [...] [facility] [address], [place], [address], 09/08/2024 22:51:39 09/09/19 25 09/08/2024 [UNIT Y] BLAINE ER SCREE N alpha-thalas semia carrier screen NEGATI VE normal Not Available [facility] [address], [place], [address], 09/08/2024 22:51:39 09/09/19 25 09/08/2024 [UNIT Y] BLAINE ER SCREE N cystic fibrosis carrier screen NEGATI VE normal Not Available [facility] [address], [place], [address], 09/08/2024 22:51:39 09/09/19 25 09/08/2024 [UNIT Y] BLAINE [place] spinal muscular atrophy carrier screen NEGATI VE 3 SMN1 copies , SNP not presen t normal Not Available [facility] [address], [place], [address], 09/08/2024 22:51:39 09/09/19 25 09/08/2024 [UNIT Y] BLAINE [place] for detailed report, see pdf See PDF normal Not Available [facility] [address], [place], [address], 09/08/2024 22:51:39 09/13/19 25 09/12/2024 [UNIT Y] ANEUP LOIDY NIPT redraw requested? No normal Not Available Angel[facility] [address], [place], [address], 09/12/2024 00:04:22 09/13/19 25 09/12/2024 [UNIT Y] ANEUP LOIDY NIPT fraction 9.1% normal Not Available [facility] [address], [place], [address], 09/12/2024 00:04:22 09/13/19 25 09/12/2024 [UNIT Y] ANEUP LOIDY NIPT 22Q11.2 microdeletio n LOW RISK <1 in 10,000 normal Not Available [facility] [address], [place], [address], 09/12/2024 00:04:22 09/13/19 25 09/12/2024 [UNIT Y] [...] Available [facility] [address], [place], [address], 09/12/2024 00:04:22 09/13/19 25 09/12/2024 [UNIT Y] ANEUP LOIDY NIPT sex chromosome aneuploidy NO CALL abnormal Not Available [facility] [address], [place], [address], 09/12/2024 00:04:22 09/13/19 25 09/12/2024 [UNIT Y] ANEUP LOIDY NIPT monosomy X NO CALL abnormal Not Available [facility] [address], [place], [address], 09/12/2024 00:04:22 09/13/19 25 09/12/2024 [UNIT Y] ANEUP LOIDY NIPT trisomy 13 LOW RISK <1 in 10,000 normal Not Available [facility] [address], [place], [address], 09/12/2024 00:04:22 09/13/19 25 09/12/2024 [UNIT Y] ANEUP LOIDY NIPT trisomy 18 LOW RISK <1 in 10,000 normal Not Available [facility] [address], [place], [address], 09/12/2024 00:04:22 09/13/19 25 09/12/2024 [UNIT Y] ANEUP LOIDY NIPT trisomy 21 LOW RISK <1 in 10,000 normal Not Available [facility] [address], [place], [address], 09/12/2024 00:04:22 09/13/19 25 09/12/2024 [UNIT Y] ANEUP LOIDY NIPT sex N/A abnormal Not Available [facility] [address], [place], [address], 09/12/2024 00:04:22 09/13/19 25 09/12/2024 [UNIT Y] ANEUP LOIDY NIPT gestation SINGLE TON normal Not Available [facility] [address], [place], [address], 09/12/2024 00:04:22 09/13/19 25 09/12/2024 [UNIT Y] ANEUP LOIDY NIPT for detailed report, see pdf See PDF normal Not Available [facility] [address], [place], [address], 09/12/2024 00:04:22 09/02/19 25 09/01/2024 CBC W/DIF F WBC 11.5 10'3/ uL 3.5-10 .5 high Not Available [facility] (Lab) [address] , [place], [address], 09/02/2024 13:48:30 09/02/19 25 09/01/2024 CBC W/DIF F RBC 4.99 10'6/ uL (based on docume nted legal sex) 3.80-5 .20 Not Available [facility] (Lab) [address] , [place], [address], 09/02/2024 13:48:30 09/02/19 25 09/01/2024 CBC W/DIF F HGB 14.4 g/dL (based on docume nted legal sex) 11.6-1 5.4 Not Available [facility] (Lab) [address] , [place], [address], 09/02/2024 13:48:30 09/02/19 25 09/01/2024 CBC W/DIF F HCT 42.5 % (based on docume nted legal sex) 34.0-4 5.0 Not Available [facility] (Lab) [address], [place], [address], 09/02/2024 13:48:30 09/02/19 25 09/01/2024 CBC W/DIF F MCV 85.2 fL 80.0-9 9.0 Not Available [facility] (Lab) [address] [facility], [place], [address], 09/02/2024 13:48:30 09/02/19 25 09/01/2024 CBC W/DIF F MCH 28.9 pg 27.0-3 4.0 Not Available [facility] (Lab) [address] [facility], [place], [address], 09/02/2024 13:48:30 09/02/19 25 09/01/2024 CBC W/DIF F MCHC 33.9 g/dL 32.0-3 5.5 Not Available [facility] (Lab) [address] [facility], [place], [address], 09/02/2024 13:48:30 09/02/19 25 09/01/2024 CBC W/DIF F RDW 13.2 % 11.0-1 5.0 Not Available [facility] (Lab) [address] [facility], [place], [address], 09/02/2024 13:48:30 09/02/19 25 09/01/2024 CBC W/DIF F plt 208 10'3/ uL 150-40 0 Not Available [facility] (Lab) [address] [facility], [place], [address], 09/02/2024 13:48:30 09/02/19 25 09/01/2024 CBC W/DIF F MPV 12.3 fL 8.8-12 .1 high Not Available [facility] (Lab) [address] [facility], [place], [address], 09/02/2024 13:48:30 09/02/19 25 09/01/2024 CBC W/DIF F NRBC's 0.0 % 0.0 Not Available [facility] (Lab) [address] [place], [address], 09/02/2024 13:48:30 09/02/19 25 09/01/2024 CBC W/DIF F absolute NRBCs 0.0 10'3/ uL no refere nce range establ ished Not Available [facility] (Lab) [address] [facility], [place], [address], 09/02/2024 13:48:30 09/02/19 25 09/01/2024 CBC W/DIF F neutrophils 70.5 % 34.0-7 3.0 Not Available [facility] (Lab) [address] [facility], [place], [address], 09/02/2024 13:48:30 09/02/19 25 09/01/2024 CBC W/DIF F lymphocytes 21.9 % 15.0-5 0.0 Not Available [facility] (Lab) [address] [facility], [place], [address], 09/02/2024 13:48:30 09/02/19 25 09/01/2024 CBC W/DIF F monocytes 5.8 % 1.0-15 .0 Not Available [facility] (Lab) [address] [facility], [place], [address], 09/02/2024 13:48:30 09/02/19 25 09/01/2024 CBC W/DIF F eosinophils 1.3 % 0.0-8. 0 Not Available [facility] (Lab) [address] [place], [address], 09/02/2024 13:48:30 09/02/19 25 09/01/2024 CBC W/DIF F basophils 0.2 % 0.0-2. 0 Not Available [facility] (Lab) [address] [place], [address], 09/02/2024 13:48:30 09/02/19 25 09/01/2024 CBC W/DIF [...] separ ately if prese nt. Not Available [facility] (Lab) [address] [facility], [place], [address], 09/02/2024 13:48:30 09/02/19 25 09/01/2024 CBC W/DIF F absolute neutrophils 8.1 10'3/ uL 1.5-8. 0 high Not Available [facility] (Lab) [address] [facility], [place], [address], 09/02/2024 13:48:30 09/02/19 25 09/01/2024 CBC W/DIF F absolute lymphocytes 2.5 10'3/ uL 1.0-4. 0 Not Available [facility] (Lab) [address] [facility], [place], [address], 09/02/2024 13:48:30 09/02/19 25 09/01/2024 CBC W/DIF F absolute monocytes 0.7 10'3/ uL 0.2-1. 0 Not Available [facility] (Lab) [address] [facility], [place], [address], 09/02/2024 13:48:30 09/02/19 25 09/01/2024 CBC W/DIF F absolute eosinophils 0.2 10'3/ uL 0.0-0. 6 Not Available [facility] (Lab) [address] [facility], [place], [address], 09/02/2024 13:48:30 09/02/19 25 09/01/2024 CBC W/DIF F absolute basophils 0.0 10'3/ uL 0.0-0. 3 Not Available [facility] (Lab) [address] [facility], [place], [address], 09/02/2024 13:48:30 09/02/19 25 09/01/2024 CBC W/DIF [...] benand book. nm.or g/gen derx Not Available [facility] (Lab) [address] [facility], [place], [address], 09/02/2024 13:48:30 09/02/19 25 09/01/2024 TYPE/ RH/SC REEN ABO/Rh type O NEG Not Available [facility] (Lab) [address] [facility], [place], [address], 09/02/2024 13:48:30 09/02/19 25 09/01/2024 TYPE/ RH/SC REEN antibody screen NEG Not Available [facility] (Lab) [address] [facility], [place], [address], 09/02/2024 13:48:30 09/02/19 25 09/01/2024 TYPE/ RH/SC REEN exp date 2024 23:59 Not Available [facility] (Lab) [address] [place], [address], 09/02/2024 13:48:30 09/02/1909/01/2024 HIV 1/2 ANTIG EN/AN TIBOD Y, REFLE X CONFI RMATI ON HIV antigen/anti body Nonrea ctive nonrea ctive HIV-1 antig en and HIV-1 /HIV- 2 antib odies were not detec edouard. No labor atory evide nce of HIV infec tion. Not Available [facility] (Lab) [address] [facility], [place], [address], 09/02/2024 13:48:31 09/02/19 25 09/01/2024 HEPAT ITIS B SURFA CE ANTIG EN hepatitis B surface antigen Non-re active non-re active This assay was perfo rmed using [employer] ratio n reage nts and test kits. Value s obtai blaine with other assay metho ds or kits canno t be used inter stover eably . Not Available [facility] (Lab) [address] [facility], [place], [address], 09/02/2024 13:48:31 09/02/19 25 09/01/2024 HEPAT ITIS C ANTIB MARV SCREE N, REFLE X TO CONFI RMATI ON hepatitis C antibody Non-re active non-re active Antib odies to HCV Not Detec edouard, does not exclu de the possi bilit y of expos ure to HCV. Not Available [facility] (Lab) [address] [facility], [place], [address], 09/02/2024 13:48:31 09/02/19 25 09/01/2024 RUBEL LA IGG ANTIB MARV, QUANT rubella antibodies, IgG Reacti ve reacti ve Not Available [facility] (Lab) [address] [place], [address], 09/02/2024 13:48:32 09/02/19 25 09/01/2024 RUBEL LA IGG ANTIB MARV, QUANT rubella antibodies, IgG quant 12.2 IU/mL >=10 Non-r eacti ve (Non- Immun e) <10 IU/mL React nkechi (Immu ne) > or = 10 IU/mL Not Available [facility] (Lab) [address] [place], [address], 09/02/2024 13:48:32 09/02/19 25 09/01/2024 RPR SCREE N, REFLE X TITER /CONF IRMAT ION RPR qualitative Nonrea ctive nonrea ctive Not Available [facility] (Lab) [address] [place], [address], 09/02/2024 13:48:32 09/02/19 25 09/01/2024 HEMOG LOBIN [...] >8.0% Actio n sugge sted Not Available [facility] (Lab) [address], [place], [address], 09/02/2024 13:48:32 09/02/1909/01/2024 CULTU RE: URINE result report SEE RESULT S BELOW Test: Cultu re: Urine Speci men Sourc e: Urine Voide d Speci men Type: Urine Speci men Date: 025 1116 Resul t Date: 2024 Resul t Statu s: Final resul t Abnor mal: No Resul ting Lab: [facility] [address] [facility] [address] Tel: CULTU RE ----- ----- ----- --- No growt h in 1 day (dete ction level of 10,00 0 colon ies / ml.) Not Available [facility] (Lab) [address], [place], [address], 09/02/2024 21:37:00 09/02/19 25 09/01/2024 drug scree n, urine Amphetamines : negati ve Not Available [facility] [address], [place], [address], 09/01/2024 11:12:32 09/02/19 25 09/01/2024 drug scree n, urine Cannabinoids : negati ve Not Available [facility] [address], [place], [address], 09/01/2024 11:12:32 09/02/19 25 09/01/2024 drug scree n, urine Cocaine: negati ve Not Available [facility] [address], [place], [address], 09/01/2024 11:12:32 09/02/19 25 09/01/2024 drug scree n, urine Opiates: negati ve Not Available [facility] [address], [place], [address], 09/01/2024 11:12:32 09/02/19 25 09/01/2024 drug scree n, urine Phenocyclidi ne: negati ve Not Available [facility] [address], [place], [address], 09/01/2024 11:12:32 09/02/19 25 09/01/2024 drug scree n, urine Barbiturates : negati ve Not Available [facility] [address], [place], [address], 09/01/2024 11:12:32 09/02/19 25 09/01/2024 drug scree n, urine Benzodiazepi loan: negati ve Not Available [facility] [address], [place], [address], 09/01/2024 11:12:32 09/02/19 25 09/01/2024 drug scree n, urine Ethanol: negati ve Not Available [facility] [address], [place], [address], 09/01/2024 11:12:32 09/02/19 25 09/01/2024 drug scree n, urine Hallucinogen s: negati ve Not Available [facility] [address], [place], [address], 09/01/2024 11:12:32 09/02/19 25 09/01/2024 drug scree n, urine Inhalants: negati ve Not Available [facility] [address], [place], [address], 09/01/2024 11:12:32 09/02/19 25 09/01/2024 drug scree n, urine Anabolic Steroids: negati ve Not Available [facility] [address], [place], [address], 09/01/2024 11:12:32 09/02/19 25 09/01/2024 drug scree n, urine Other: negati ve Not Available [facility] [address], [place], [address], 09/01/2024 11:12:32 09/02/19 25 09/01/2024 US, obste tric, nucha l trans lucen cy No observ ation record ed. [facility] [address], [place], [address], 09/01/2024 18:48:24 09/02/19 25 09/01/2024 US, obste tric, nucha l trans lucen cy No observ ation record ed. [email or web address] [address], [place], [address], 09/02/2024 11:29:46 10/29/19 25 10/28/2024 US, obste tric, 2nd or 3rd trime ster No observ ation record ed. [facility] [address], [place], [address], 10/28/2024 18:24:58 10/29/19 25 10/28/2024 US, obste tric, 2nd or 3rd trime ster No observ ation record ed. [email or web address] [address], [place], [address], 10/28/2024 22:59:36 01/14/20 25 01/13/2025 US, obste tric, follo w-up No observ ation record ed. ELIE Montoya [address], [place], [address], 01/16/2025 19:25:04 01/14/20 25 01/13/2025 US, obste tric, follo w-up No observ ation record ed. [email or web address] [facility] [address], [place], [address], 01/13/2025 17:54:59 Result Notes None recorded. Problems Name Problem SNOMED Code Status Onset Date Resolution Date Notes Provider Name and Address Organization Details Recorded Time 46510189 Active 2024 ISRAEL hurtado, [facility] 10:27:09 Rheumatoi d arthritis 37010621 Active 2024 previously on Juliette DELCID MD [address], [place], [address], [facility] 16:24:19 Problem Notes None recorded. Procedures Surgical History Date Name Laterality Status Provider Name and Address Organization Details Recorded Time 03/26/19 22 Date of Last Pap Smear completed [facility] 08/11/2024 16:48:19 10/02/18 97 [facility] liver [facility] 16:51:12 Imaging Results None [...] Not Available Not Avai lable Not Available [place] 3 Fish Oil 08/11 completed Not Available Not Available Not Available Humira 08/11 completed Not Available Not Available Not Available Probiotic active Not Available Not Ruth ilable Not Available Vitals Date Recorded Body weight Systolic And Diastolic Provider Name and Address Organization Details Last Updated DateTime 01/13/2025 08954.78840 g 113/73 mm[Hg] Dollysantosh Kline [facility] 01/13/2025 17:35:47 Social History Question Answer Notes LastModified by [...] Or The Highest Degree You Have Received? IE21144-5 Information not available 08/11/2024 Are There Any [...] Functional Status Question Answer Note LastModified by [employer] ion Details LastModified Time Do you use [...] anxious, or unable to sleep at night)? NB28033-4 Information not available 08/11/2024 Family History Relationship [...] ICD10 Code Diagnosis IMO Codes Diagnosis Note [id number] WINIFRED DELCID MD [facility] [address],[place] [address] 12/16/2024 15:55:58 12/16/2024 16:42:41 Rheumatoid arthritis 64009469 M06.9 [id number] Gestation period, 28 weeks 35763560 Z3A.28 1437781 - continue PNV [id number] WINIFRED DELCID MD [facility] [address],[place] [address] 12/30/2024 17:27:04 01/02/2025 08:54:34 care status 242888155 Z34.83 45159224 [id number] WINIFRED DELCID MD [facility] [address],[place] [address] 01/13/2025 17:17:00 01/13/2025 17:52:49 Observational assessment 363077786 Z03.74 Z3A.32 8900508 [id number] WINIFRED DELCID MD [facility] [address],[place] [address] 01/13/2025 17:17:32 01/13/2025 17:58:06 Rheumatoid arthritis 42285799 M06.9 0985776297 Gestation period, 32 weeks 3294557 Z3A.32 2422584 Health Concerns Section Related Observation LastModified by Organization Detai ls LastModified Time None Recorded Concern Status LastModified by Organization Details LastModified Time None Recorded Payers Encounter Date Sequence Insurance Name Policy Number Policy Meredith Covered Member ID Meredith Member ID Guarantor Name 01/13/2025 1 [facility] [id number] Stefanie Cortes [id number] Stefanie Cortes Notes Date Note Type Note Provider Name and Address Organization Details Recorded Time 01/13/2025 text/html Generic HPI TemplateReported by Patient WINIFRED DELCID MD [address], [place], [address], [facility] 01/13/2025 17:57:29 OBGyn Episode Ob Episode Information Episode Created Date Number of Fetuses Patient Bloodtype Patient rh Status Prepregnancy Weight lbs Domestic Partner Domestic Partner Phone Father Name Quality Specialist Status 09/02/19 25 1 O Negative OPEN Fetus Data First Name Last Name Admitted to NICU Weight (g) Sex Living Outcome Pediatric Complications Fetus ID Race Codes Race Delivery Type [id number] Problems Problem Notes Problem Name Start Date End Date Resolution Snomed Code Not e Rheumatoid arthritis 12/16/2024 38452806 previously on Humira Tino Calculation Initial Tino [...] Sound Latest Days Gestation 10/29/19 25 21 [email or web address] 09/01/2024 03/09/20 25 3 Pre-hiram Flowsheet Flowsheet Date 09/01/2024 Garzon Score Blood Edema Fundus Height Fundus Units Glucose Ketones Leukocytes Nitrite Labor Signs Protein Cervic Dilation Cervic Effacement Cervic Station neg none Type Weight in lbs Pre/Post Dialysis Refused Weight 162.058796639814 BP Diastolic BP Location Tested BP Systolic BP Type 81 L arm 117 sitting Fetus Heart Rate Present A Present Fetus Movement A No Comments Patient presents to [facility]. Hx of at 37 weeks, [...] Weight in lbs Pre/Post Dialysis Refused Weight 164.264580284304 BP Diastolic BP Location Tested BP Systolic BP Type 82 L arm 122 sitting Fetus Heart Rate Present A 140 Fetus Movement A No Comments Doing well, no issues. Had a bad headache a few weeks ago. No nausea, cramping or bleeding. NIPT LR, however no call on sex chromosomes. Per [place], will not repeat. Discussed with patient. Other [...] Weight in lbs Pre/Post Dialysis Refused Weight 167.490873799096 BP Diastolic BP Location Tested BP Systolic [...] Weight in lbs Pre/Post Dialysis Refused Weight 176.708398164773 BP Diastolic BP Location Tested BP Systolic [...] Weight in lbs Pre/Post Dialysis Refused Weight 184.107496389791 BP Diastolic BP Location Tested BP Systolic [...] Weight in lbs Pre/Post Dialysis Refused Weight 188.427238565118 BP Diastolic BP Location Tested BP Systolic BP Type 79 L arm 116 sitting Fetus Heart Rate Present A 140 Fetus Movement A Yes Comments Good movement. No cram ping or bleeding. Growth US next visit. RTC 2 weeks. Flowsheet Date 01/13/2025 Gazron Score Blood Edema Fundus Height Fundus Units [...] Type Weight in lbs Pre/Post Dialysis Refused 193.81291835223 BP Diastolic BP Location Tested BP Systolic [...] Type Weight in lbs Pre/Post Dialysis Refused 195.805531368709 BP Diastolic BP Location Tested BP Systolic [...] Type Weight in lbs Pre/Post Dialysis Refused 203.01376008207 BP Diastolic BP Location Tested BP Systolic [...] Weight in lbs Pre/Post Dialysis Refused Weight 199.567746865210 BP Diastolic BP Location Tested BP Systolic [...] Weight in lbs Pre/Post Dialysis Refused Weight 204.964555058894 BP Diastolic BP Location Tested BP Systolic [...] Weight in lbs Pre/Post Dialysis Refused Weight 205.528349349092 BP Diastolic BP Location Tested BP Systolic [...] Weight in lbs Pre/Post Dialysis Refused Weight 208.004243663458 BP Diastolic BP Location Tested BP Systolic [...]
--- OUTSIDE RECORDS SUMMARY | 2025-03-16 05:07 | XMS_ITS | Encounter Summary ---
Author Organization [facility] Address [address] [place] [address] Care Team Providers Care Engagement Lead Name Role Phone Lynsey Larson RN Unavailable Unavailable Dimitri Almonte MD Primary Care Provider [phone] Stephany Lott MD Unavailable [phone] Reason for Visit * Reason Onset Date Comments MEDICATION REFILL 05/27/2020 Encounter Details Date Type Department Care Team (Late st Contact Info) Description 05/27/2020 Refill [facility] [address] [place] [address] Sofia Langley MD [address] [place] [address] MEDICATION REFILL Social History Tobacco Use Types [...] on file Legal Sex Female 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 Gender Identity Not on file Sexual Orientation Not on file documented as of this encounter Miscellaneous Notes * Telephone Encounter - Kate Knutson LPN - 05/28/2020 8:54 AM VINYL 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 AND FABRICATOR SEJAL: 05/03 NOV: 07/27 KB L WELDER AND FABRICATOR documented in this encounter Plan of Treatment Upcoming Encounters Date Type Department Care Team (Late st Contact Info) Description 07/15/2025 9:40 AM CDT Office Visit [facility] - Rheumatology [address] [place] [address], [place] [address] Zac Douglas MD [address] [place] [address] [address] [place] [address] 07/31/2025 9:00 AM CDT Office Visit [facility] - GI [address] [place] [address], [place] [address] Mana Rivera PA-C [address] [place] [address] [address] [place] [address] documented as of this encounter [...] on filedocumented in this encounter Care Teams Engagement Lead Relationship Specialty Start Date End Date Dimitri Almonte MD [address] [place] [address] PCP - General 09/24/19 Lynsey Larson, TOMA Registered Nurse 07/02/18 Stephany Lott MD [address] [place] [address] Physician Obstetrics and Gynecology 11/07/21 documented as of this encounter
--- OUTSIDE RECORDS SUMMARY | 2025-03-16 05:07 | XMS_ITS | Continuity of Care Document ---
Author Organization [facility] Address [address] [place] [address] Care Team Providers Care Steward/[employer] Name Role Phone BRODERICK MADRID Primary Care Provider Assessment No assessment recorded. Plan of Treatment Reminders Order Date Submit Date Provider Last Modified By Organization Details Last Modified Time Details Appointments INDUCTION 2024 05:00A Elieser DELCID MD Not available Not available Not available Lab None recorded. Referral None recorded. Procedures None recorded. Surgeries None recorded. Imaging US, obstetric , follow-up 2024 0[address], [address], [place], [address], 01/13/2025 18:05:05 Medication Orders None recorded. Patient TargetsNo targets recorded. Patient InstructionsNo instructions recorded. Reason for Referral None Reported. Results Created Date Observation Date Name Description Value Unit Range Abnormal Flag Note LastModifiedBy Organization Detail LastModifiedTime 09/09/1909/08/2024 [UNIT Y] BLAINE ER SCREE N sickle cell disease/beta -thalassemia /hemoglobino pathies carrier screen NEGATI VE normal Not Available [facility] [address], [place], [address], 09/08/2024 22:51:39 09/09/19 25 09/08/2024 [UNIT Y] BLAINE ER SCREE N alpha-thalas semia carrier screen NEGATI VE normal Not Available [facility] [address], [place], [address], 09/08/2024 22:51:39 09/09/19 25 09/08/2024 [UNIT Y] BLAINE [place] cystic fibrosis carrier screen NEGATI VE normal Not Available [facility] [address], [place], [address], 09/08/2024 22:51:39 09/09/19 25 09/08/2024 [UNIT Y] BLAINE [place] spinal muscular atrophy carrier screen NEGATI VE 3 SMN1 copies , SNP not presen t normal Not Available [facility] [address], [place], [address], 09/08/2024 22:51:39 09/09/19 25 09/08/2024 [UNIT Y] BLAINE [place] for detailed report, see pdf See PDF normal Not Available [facility] [address], [place], [address], 09/08/2024 22:51:39 09/13/19 25 09/12/2024 [UNIT Y] ANEUP LOIDY NIPT redraw requested? No normal Not Available [facility] [address], [place], [address], 09/12/2024 00:04:22 09/13/19 25 09/12/2024 [UNIT Y] ANEUP LOIDY NIPT fraction 9.1% normal Not Available [facility] [address], [place], [address], 09/12/2024 00:04:22 09/13/19 25 09/12/2024 [UNIT Y] ANEUP LOIDY NIPT 22Q11.2 microdeletio n LOW RISK <1 in 10,000 normal Not Available [facility] [address], [place], [address], 09/12/2024 00:04:22 09/13/19 25 09/12/2024 [UNIT Y] [...] . Not Available [facility] [address], [place], [address], 09/12/2024 00:04:22 09/13/19 25 09/12/2024 [UNIT Y] ANEUP LOIDY NIPT sex chromosome aneuploidy NO CALL abnormal Not Available [facility] [address], [place], [address], 09/12/2024 00:04:22 09/13/19 25 09/12/2024 [UNIT Y] ANEUP LOIDY NIPT monosomy X NO CALL abnormal Not Available [facility] [address], [place], [address], 09/12/2024 00:04:22 09/13/19 25 09/12/2024 [UNIT Y] ANEUP LOIDY NIPT trisomy 13 LOW RISK <1 in 10,000 normal Not Available [facility] [address], [place], [address], 09/12/2024 00:04:22 09/13/19 25 09/12/2024 [UNIT Y] ANEUP LOIDY NIPT trisomy 18 LOW RISK <1 in 10,000 normal Not Available [facility] [address], [place], [address], 09/12/2024 00:04:22 09/13/19 25 09/12/2024 [UNIT Y] ANEUP LOIDY NIPT trisomy 21 LOW RISK <1 in 10,000 normal Not Available [facility] [address], [place], [address], 09/12/2024 00:04:22 09/13/19 25 09/12/2024 [UNIT Y] ANEUP LOIDY NIPT sex N/A abnormal Not Available [address], [place], [address], 09/12/2024 00:04:22 09/13/19 25 09/12/2024 [UNIT Y] ANEUP LOIDY NIPT gestation SINGLE TON normal Not Available [address], [place], [address], 09/12/2024 00:04:22 09/13/19 25 09/12/2024 [UNIT Y] ANEUP LOIDY NIPT for detailed report, see pdf See PDF normal Not Available [address], [place], [address], 09/12/2024 00:04:22 09/02/19 25 09/01/2024 CBC W/DIF F WBC 11.5 10'3/ uL 3.5-10 .5 high Not Available [facility] (Lab) [address], [place], [address], 09/02/2024 13:48:30 09/02/19 25 09/01/2024 CBC W/DIF F RBC 4.99 10'6/ uL (based on docume nted legal sex) 3.80-5 .20 Not Available [facility] (Lab) [address] , [place], [address], 09/02/2024 13:48:30 09/02/19 25 09/01/2024 CBC W/DIF F HGB 14.4 g/dL (based on docume nted legal sex) 11.6-1 5.4 Not Available [facility] (Lab) [address], [place], [address], 09/02/2024 13:48:30 09/02/19 25 09/01/2024 CBC W/DIF F HCT 42.5 % (based on docume nted legal sex) 34.0-4 5.0 Not Available [facility] (Lab) [address], [place], [address], 09/02/2024 13:48:30 09/02/19 25 09/01/2024 CBC W/DIF F MCV 85.2 fL 80.0-9 9.0 Not Available [facility] (Lab) [address], [place], [address], 09/02/2024 13:48:30 09/02/19 25 09/01/2024 CBC W/DIF F MCH 28.9 pg 27.0-3 4.0 Not Available [facility] (Lab) [address], [place], [address], 09/02/2024 13:48:30 09/02/19 25 09/01/2024 CBC W/DIF F MCHC 33.9 g/dL 32.0-3 5.5 Not Available [facility] (Lab) [address], [place], [address], 09/02/2024 13:48:30 09/02/19 25 09/01/2024 CBC W/DIF F RDW 13.2 % 11.0-1 5.0 Not Available [facility] (Lab) [address], [place], [address], 09/02/2024 13:48:30 09/02/19 25 09/01/2024 CBC W/DIF F plt 208 10'3/ uL 150-40 0 Not Available [facility] (Lab) [address], [place], [address], 09/02/2024 13:48:30 09/02/19 25 09/01/2024 CBC W/DIF F MPV 12.3 fL 8.8-12 .1 high Not Available [facility] (Lab) [address], [place], [address], 09/02/2024 13:48:30 09/02/19 25 09/01/2024 CBC W/DIF F NRBC's 0.0 % 0.0 Not Available [facility] (Lab) [address], [place], [address], 09/02/2024 13:48:30 09/02/19 25 09/01/2024 CBC W/DIF F absolute NRBCs 0.0 10'3/ uL no refere nce range establ ished Not Available [facility] (Lab) [address], [place], [address], 09/02/2024 13:48:30 09/02/19 25 09/01/2024 CBC W/DIF F neutrophils 70.5 % 34.0-7 3.0 Not Available [facility] (Lab) [address], [place], [address], 09/02/2024 13:48:30 09/02/19 25 09/01/2024 CBC W/DIF F lymphocytes 21.9 % 15.0-5 0.0 Not Available [facility] (Lab) [address], [place], [address], 09/02/2024 13:48:30 09/02/19 25 09/01/2024 CBC W/DIF F monocytes 5.8 % 1.0-15 .0 Not Available [facility] (Lab) [address], [place], [address], 09/02/2024 13:48:30 09/02/19 25 09/01/2024 CBC W/DIF F eosinophils 1.3 % 0.0-8. 0 Not Available [facility] (Lab) [address] [place], [address], 09/02/2024 13:48:30 09/02/19 25 09/01/2024 CBC W/DIF F basophils 0.2 % 0.0-2. 0 Not Available [facility] (Lab) [address] [place], [address], 09/02/2024 13:48:30 09/02/19 25 09/01/2024 CBC W/DIF [...] separ ately if prese nt. Not Available [facility] (Lab) [address] , [place], [address], 09/02/2024 13:48:30 09/02/19 25 09/01/2024 CBC W/DIF F absolute neutrophils 8.1 10'3/ uL 1.5-8. 0 high Not Available [facility] (Lab) [address] , [place], [address], 09/02/2024 13:48:30 09/02/19 25 09/01/2024 CBC W/DIF F absolute lymphocytes 2.5 10'3/ uL 1.0-4. 0 Not Available [facility] (Lab) [address], [place], [address], 09/02/2024 13:48:30 09/02/19 25 09/01/2024 CBC W/DIF F absolute monocytes 0.7 10'3/ uL 0.2-1. 0 Not Available [facility] (Lab) [address], [place], [address], 09/02/2024 13:48:30 09/02/19 25 09/01/2024 CBC W/DIF F absolute eosinophils 0.2 10'3/ uL 0.0-0. 6 Not Available [facility] (Lab) [address], [place], [address], 09/02/2024 13:48:30 09/02/19 25 09/01/2024 CBC W/DIF F absolute basophils 0.0 10'3/ uL 0.0-0. 3 Not Available [facility] (Lab) [address], [place], [address], 09/02/2024 13:48:30 09/02/19 25 09/01/2024 CBC W/DIF [...] the indiv idual patie nt: https ://la jatin book. nm.or g/gen derx Not Available [facility] (Lab) [address], [place], [address], 09/02/2024 13:48:30 09/02/19 25 09/01/2024 TYPE/ RH/SC REEN ABO/Rh type O NEG Not Available [facility] (Lab) [address], [place], [address], 09/02/2024 13:48:30 09/02/19 25 09/01/2024 TYPE/ RH/SC REEN antibody screen NEG Not Available [facility] (Lab) [address], [place], [address], 09/02/2024 13:48:30 09/02/19 25 09/01/2024 TYPE/ RH/SC REEN exp date 2024 23:59 Not Available [facility] (Lab) [address], [place], [address], 09/02/2024 13:48:30 09/02/1909/01/2024 HIV 1/2 ANTIG EN/AN TIBOD Y, REFLE X CONFI RMATI ON HIV antigen/anti body Nonrea ctive nonrea ctive HIV-1 antig en and HIV-1 /HIV- 2 antib odies were not detec edouard. No labor atory evide nce of HIV infec tion. Not Available [facility] (Lab) [address], [place], [address], 09/02/2024 13:48:31 09/02/1909/01/2024 HEPAT ITIS B SURFA CE ANTIG EN hepatitis B surface antigen Non-re active non-re active This assay was perfo rmed using [employer] ratio n reage nts and test kits. Value s obtai blaine with other assay metho ds or kits canno t be used inter stover eably . Not Available [facility] (Lab) [address], [place], [address], 09/02/2024 13:48:31 09/02/19 25 09/01/2024 HEPAT ITIS C ANTIB MARV SCREE N, REFLE X TO CONFI RMATI ON hepatitis C antibody Non-re active non-re active Antib odies to HCV Not Detec edouard, does not exclu de the possi bilit y of expos ure to HCV. Not Available [facility] (Lab) [address], [place], [address], 09/02/2024 13:48:31 09/02/1909/01/2024 RUBEL LA IGG ANTIB MRAV, QUANT rubella antibodies, IgG Reacti ve reacti ve Not Available [facility] (Lab) [address], [place], [address], 09/02/2024 13:48:32 09/02/19 25 09/01/2024 RUBEL LA IGG ANTIB MARV, QUANT rubella antibodies, IgG quant 12.2 IU/mL >=10 Non-r eacti ve (Non- Immun e) <10 IU/mL React nkechi (Immu ne) > or = 10 IU/mL Not Available [facility] (Lab) [address], [place], [address], 09/02/2024 13:48:32 09/02/19 25 09/01/2024 RPR SCREE N, REFLE X TITER /CONF IRMAT ION RPR qualitative Nonrea ctive nonrea ctive Not Available [facility] (Lab) [address] , [place], [address], 09/02/2024 13:48:32 09/02/19 25 09/01/2024 HEMOG LOBIN [...] s consi stent ly > 8%. <5.7% Sraa l 5.7 - 6.4% Incre ased risk for diabe kim >=6.5 % Diagn ostic of diabe kim <7.0% Goal of thera py >8.0% Actio n sugge sted Not Available [facility] (Lab) [address], [place], [address], 09/02/2024 13:48:32 09/02/19 25 09/01/2024 CULTU RE: URINE result report SEE RESULT S BELOW Test: Cultu re: Urine Speci men Sourc e: Urine Voide d Speci men Type: Urine Speci men Date: 025 1116 Resul t Date: 20242 Resul t Statu s: Final resul t Abnor mal: No Resul ting Lab: [facility] [address] [facility] [address] Tel: CULTU RE ----- ----- ----- --- No growt h in 1 day (dete ction level of 10,00 0 colon ies / ml.) Not Available [facility] (Lab) [address], [place], [address], 09/02/2024 21:37:00 09/02/19 25 09/01/2024 drug scree n, urine Amphetamines : negati ve Not Available [facility] [place] [address], [place], [address], 09/01/2024 11:12:32 09/02/19 25 09/01/2024 drug scree n, urine Cannabinoids : negati ve Not Available [address], [place], [address], 09/01/2024 11:12:32 09/02/19 25 09/01/2024 drug scree n, urine Cocaine: negati ve Not Available [address], [place], [address], 09/01/2024 11:12:32 09/02/19 25 09/01/2024 drug scree n, urine Opiates: negati ve Not Available [address], [place], [address], 09/01/2024 11:12:32 09/02/19 25 09/01/2024 drug scree n, urine Phenocyclidi ne: negati ve Not Available [address], [place], [address], 09/01/2024 11:12:32 09/02/19 25 09/01/2024 drug scree n, urine Barbiturates : negati ve Not Available [address], [place], [address], 09/01/2024 11:12:32 09/02/19 25 09/01/2024 drug scree n, urine Benzodiazepi loan: negati ve Not Available [address], [place], [address], 09/01/2024 11:12:32 09/02/19 25 09/01/2024 drug scree n, urine Ethanol: negati ve Not Available [address], [place], [address], 09/01/2024 11:12:32 09/02/19 25 09/01/2024 drug scree n, urine Hallucinogen s: negati ve Not Available [address], [place], [address], 09/01/2024 11:12:32 09/02/19 25 09/01/2024 drug scree n, urine Inhalants: negati ve Not Available [address], [place], [address], 09/01/2024 11:12:32 09/02/19 25 09/01/2024 drug scree n, urine Anabolic Steroids: negati ve Not Available [address], [place], [address], 09/01/2024 11:12:32 09/02/19 25 09/01/2024 drug scree n, urine Other: negati ve Not Available [address], [place], [address], 09/01/2024 11:12:32 09/02/19 25 09/01/2024 US, obste tric, nucha l trans lucen cy No observ ation record ed. [facility] [address], [place], [address], 09/01/2024 18:48:24 09/02/19 25 09/01/2024 US, obste tric, nucha l trans lucen cy No observ ation record ed. [email or web address] [address], [place], [address], 09/02/2024 11:29:46 10/29/19 25 10/28/2024 US, obste tric, 2nd or 3rd trime ster No observ ation record ed. [facility] [address], [place], [address], 10/28/2024 18:24:58 10/29/19 25 10/28/2024 US, obste tric, 2nd or 3rd trime ster No observ ation record ed. [email or web address] [address], [place], [address], 10/28/2024 22:59:36 01/14/20 25 01/13/2025 US, obste tric, follo w-up No observ ation record ed. ELIE [address], [place], [address], 01/16/2025 19:25:04 01/14/20 25 01/13/2025 US, obste tric, follo w-up No observ ation record ed. [email or web address] [address], [place], [address], 01/13/2025 17:54:59 Result Notes None recorded. Problems Name Problem SNOMED Code Status Onset Date Resolution Date Notes Provider Name and Address Organization Details Recorded Time 56617574 Active 2024 ISRAEL hurtado, [facility] 10:27:09 Rheumatoi d arthritis 97228124 Active 2024 previously on Juliette DELCID MD [address], [place], [address], [facility] 16:24:19 Problem Notes None recorded. Procedures Surgical History Date Name Laterality Status Provider Name and Address Organization Details Recorded Time 03/26/19 22 Date of Last Pap Smear completed Deena Louise [facility] 08/11/2024 16:48:19 10/02/18 97 transplantation of liver completed Deena Louise [facility] 08/11/2024 16:51:12 Imaging Results None [...] Not Available Not Avai lable Not Available [place] 3 Fish Oil 08/11 completed Not Available Not Available Not Available Humira 08/11 completed Not Available Not Available Not Available Probiotic active Not Available Not Ruth ilable Not Available Vitals Date Recorded Body weight Systolic And Diastolic Provider Name and Address Organization Details Last Updated DateTime 01/13/2025 94055.15208 g 113/73 mm[Hg] Dolly Kline [facility] 01/13/2025 17:35:47 Social History Question Answer [...] Or The Highest Degree You Have Received? [id number] Information not available 08/11/2024 Are There Any [...] anxious, or unable to sleep at night)? [id number] Information not available 08/11/2024 Family History Relationship [...] ICD10 Code Diagnosis IMO Codes Diagnosis Note [id number] WINIFRED DELCID MD [facility] [address] [address] 12/16/2024 15:55:58 12/16/2024 16:42:41 Rheumatoid arthritis 96101308 M06.9 [id number] Gestation period, 28 weeks 76502229 Z3A.28 4868811 - continue PNV [id number] MD Maryse DE LEON [address],[place] [address] 12/30/2024 17:27:04 01/02/2025 08:54:34 care status 903829168 Z34.83 90077225 051201 MD Maryse DE LEON [address] [place] [address] 01/13/2025 17:17:00 01/13/2025 17:52:49 Observational assessment 477002743 Z03.74 Z3A.32 1024599 696488 MD Maryse DE LEON [address],[place] [address] 01/13/2025 17:17:32 01/13/2025 17:58:06 Rheumatoid arthritis 69225344 M06.9 6923968503 Gestation period, 32 weeks 2300793 Z3A.32 8552342 Health Concerns Section Related Observation LastModified by Organization Detai ls LastModified Time None Recorded Concern Status LastModified by Organization Details LastModified Time None Recorded Payers Encounter Date Sequence Insurance Name Policy Number Policy Meredith Covered Member ID Meredith Member ID Guarantor Name 01/13/2025 1 [facility] [id number] Stefanie Cortes [id number] Stefanie Adamsandrew Notes Date Note Type Note Provider Name and Address Organization Details Recorded Time 01/13/2025 text/html Generic HPI TemplateReported by Patient WINIFRED DELCID MD [address], [place], [address], [facility] 01/13/2025 17:57:29 OBGyn Episode Ob Episode Information Episode Created Date Number of Fetuses Patient Bloodtype Patient rh Status Prepregnancy Weight lbs Domestic Partner Domestic Partner Phone Father Name Access Clinician Status 09/02/19 25 1 O Negative OPEN Fetus Data First Name Last Name Admitted to NICU Weight (g) Sex Living Outcome Pediatric Complications Fetus ID Race Codes Race Delivery Type [id number] Problems Problem Notes Problem Name Start Date End Date Resolution Snomed Code Not e Rheumatoid arthritis 12/16/2024 [id number] previously on Humira Tino Calculation Initial Tino [...] Sound Latest Days Gestation 10/29/19 25 21 [email or web address] 09/01/2024 03/09/20 25 3 Pre- Flowsheet Flowsheet Date 09/01/2024 Garzon Score Blood Edema Fundus Height Fundus Units Glucose Ketones Leukocytes Nitrite Labor Signs Protein Cervic Dilation Cervic Effacement Cervic Station neg none Type Weight in lbs Pre/Post Dialysis Refused Weight 162.547904034542 BP Diastolic BP Location Tested BP Systolic BP Type 81 L arm 117 sitting Fetus Heart Rate Present A Present Fetus Movement A No Comments Patient presents to [facility] care. Hx of at 37 [...] Weight in lbs Pre/Post Dialysis Refused Weight 164.889522192550 BP Diastolic BP Location Tested BP Systolic BP Type 82 L arm 122 sitting Fetus Heart Rate Present A 140 Fetus Movement A No Comments Doing well, no issues. Had a bad headache a few weeks ago. No nausea, cramping or bleeding. NIPT LR, however no call on sex chromosomes. Per [place], will not repeat. Discussed with patient. Other [...] Weight in lbs Pre/Post Dialysis Refused Weight 167.156858578381 BP Diastolic BP Location Tested BP Systolic [...] Weight in lbs Pre/Post Dialysis Refused Weight 176.556280647573 BP Diastolic BP Location Tested BP Systolic [...] Weight in lbs Pre/Post Dialysis Refused Weight 184.554882437272 BP Diastolic BP Location Tested BP Systolic [...] Weight in lbs Pre/Post Dialysis Refused Weight 188.254760507782 BP Diastolic BP Location Tested BP Systolic [...] Type Weight in lbs Pre/Post Dialysis Refused 193.57823072466 BP Diastolic BP Location Tested BP Systolic [...] Type Weight in lbs Pre/Post Dialysis Refused 195.261697128980 BP Diastolic BP Location Tested BP Systolic [...] Type Weight in lbs Pre/Post Dialysis Refused 203.49986054675 BP Diastolic BP Location Tested BP Systolic [...] Weight in lbs Pre/Post Dialysis Refused Weight 199.658254752198 BP Diastolic BP Location Tested BP Systolic [...] Weight in lbs Pre/Post Dialysis Refused Weight 204.891360395263 BP Diastolic BP Location Tested BP Systolic [...] Weight in lbs Pre/Post Dialysis Refused Weight 205.320566665015 BP Diastolic BP Location Tested BP Systolic [...] Weight in lbs Pre/Post Dialysis Refused Weight 208.951285660130 BP Diastolic BP Location Tested BP Systolic [...] Contraceptive Method Maternal HG B and HCT Levels"
--- NOTE | 2025-03-16 05:52 | LDADM ---
This patient, Stefanie Cortes, was admitted to Labor/Delivery/Recovery 108 on 03/16/25 at 05:02. Plans for labor, pain management and were discussed with patient. Patient/family oriented to hospital policies and general routines including ID bracelet, bed and alarms, visiting hours, pain management, procedures, bathroom and other care routines, personal items, smoking policy, room service/diet and guest tray routines, security routines, and visiting hours. Patient/Family are encouraged to report perceived risks to care and to ask questions if they do not understand what they are told or what they should do. See OBIX for further documentation.
[2025-03-16] MEDS: LACTATED RINGERS 1,000 ML 125 ML IV CONT ×2 (06:18→10:47)
[2025-03-16 06:22] LABS: Hematocrit 37.8 % (37.0-47.0); Hemoglobin 12.8 g/dL (12.0-15.0); Immature Granulocyte Percent A 0.6 % (0-0.5); Lymphocytes Absolute Auto 2.54 K/mm3 (0.9-3.2); Mean Corpuscular HGB Conc 33.9 g/dl (32-36); Mean Corpuscular Hemoglobin 27.2 pg (26-34); Mean Corpuscular Volume 80.3 fl (80-100); Nucleated Red Blood Cells Absolute Auto 0.000 K/mm3 (0.0-0.012); Nucleated Red Blood Cells Perc 0.0 % (0.0-0.2); Platelet Count Result 182 k/mm3 (150-375); Red Blood Count 4.71 M/mm3 (4.2-5.4); White Blood Count 13.0 K/mm3 (4.5-10.0)
[2025-03-16] MEDS: AMPICILLIN SODIUM 2 GM in SODIUM CHLORIDE 0.9% IV 100 ML 200 ML IVPB (06:23)
[2025-03-16] MEDS: OXYTOCIN 30 UNITS/NS 500 ML 30 UNITS/500 ML BAG IV CONT (06:30)
[2025-03-16 07:01] LABS: Syphilis IgG/IgM Antibody Non-Reactive (Nonreactive)
--- NOTE | 2025-03-16 09:25 | WPDOBADMIT ---
Obstetrics - Admit Note Admission Note: record reviewed. No pertinent additions to the history and/or any subsequent changes in the physical findings that are not consistent with the expected course of the were found. Patient presents for MIL for postdates. Pitocin per protocol. AROM of clear fluid, SVE 5/70/-2 Additions to the history and/or subsequent changes in the physical findings follow. None.
[2025-03-16] MEDS: AMPICILLIN SODIUM 1 GM in SODIUM CHLORIDE 0.9% IV 50 ML 100 ML IVPB ×2 (09:31→13:41)
[2025-03-16] MEDS: OXYTOCIN 30 UNITS/NS 500 ML 30 UNITS/500 ML BAG 999 UNITS IV CONT (14:08)
--- NOTE | 2025-03-16 14:45 | WPDANESEPPF ---
Anes - Initial Pre Proc Eval Date/Time: 03/16/25 14:45 Surgeon: Garo Bauman MD Pre Op Diagnosis: IOL Patient Data Age: 29 Gender: F Height: 1.6 m Weight: 94 kg Last Vital Signs Temp 36.4 C 03/16/25 14:21 Pulse 146 H 03/16/25 14:32 BP 107/56 L 03/16/25 14:32 Pulse Ox 96 03/16/25 14:42 O2 Del Method Room Air 03/16/25 05:51 Allergies Allergy/AdvReac Type Severity Reaction Status Date / Time No Known Allergies Allergy Verified 03/16/25 06:23 Home Medications ?Medication ?Instructions ?Recorded ?Confirmed ?Type Lactobacillus acidophilus 1 1,000 mmu cells PO DAILY 05/07/19 10/12/22 History billion cell capsule (Probiotic Gold Acidophilus) omega-3 fatty acids 1,000 mg 1,000 mg PO DAILY 05/07/19 10/12/22 History capsule (Fish Oil Concentrate) vits 75-iron 28 mg-folic 1 pkg PO DAILY 05/07/19 10/12/22 History acid 800 mcg-omega-3 oral combo pack (One Daily ) tacrolimus 0.5 mg capsule, 0.5 mg/kg PO Q12H 05/07/19 10/12/22 History immediate-release tacrolimus 1 mg capsule, 2 mg PO Q12H 05/07/19 10/12/22 History immediate-release cetirizine 10 mg tablet (Zyrtec) 10 mg PO DAILY 10/06/22 10/06/22 History cholecalciferol (vitamin D3) 50 50 mcg PO DAILY 10/06/22 10/06/22 History mcg (2,000 unit) tablet docusate sodium 100 mg capsule 100 mg PO DAILY 10/12/22 10/12/22 History (Colace) Laboratory Tests 03/16/25 05:12 WBC 13.0 H K/mm3 (4.5-10.0) RBC 4.71 M/mm3 (4.2-5.4) Hgb 12.8 g/dL (12.0-15.0) Hct 37.8 % (37.0-47.0) MCV 80.3 fl (80-100) MCH 27.2 pg (26-34) MCHC 33.9 g/dl (32-36) RDW 14.1 % (11.5-14.5) Plt Count 182 k/mm3 (150-375) MPV 12.3 H fl (7.4-10.4) Immature Gran % (Auto) 0.6 H % (0-0.5) Neut % (Auto) 71.2 % (45.5-73.1) Lymph % (Auto) 19.6 % (18.3-44.2) [place] % (Auto) 6.9 % (2.6-8.5) Eos % (Auto) 1.5 % (0-4.4) Baso % (Auto) 0.2 % (0.2-1.2) Lymph # (Auto) 2.54 K/mm3 (0.9-3.2) [place] # (Auto) 0.9 H K/mm3 (0.1-0.6) Eos # (Auto) 0.2 K/mm3 (0-0.3) Baso # (Auto) 0.0 K/mm3 (0.0-0.1) Abs Immat Gran (auto) 0.08 H K/mm3 (0.00-0.031) Absolute Neuts (auto) 9.2 H K/mm3 (1.3-6.7) Absolute Nucleated RBC 0.000 K/mm3 (0.0-0.012) Nucleated RBC % 0.0 % (0.0-0.2) Syphilis IgG/IgM Ab Non-reactive (Nonreactive) Blood Type O Negative Antibody Screen Negative Patient hx anesthesia problems: none Family hx anesthesia problems: none Results Review: All pre-operative results and documents have been reviewed as part of the pre-operative evaluation. [facility] Past Medical History Medical History Rheumatic arteritis IUP (intrauterine ), incidental Arthritis of left hip Hip bursitis, left Inflammatory arthritis Arthritis of foot, degenerative Biliary atresia Surgical History Surgical History Liver transplant recipient Family History Family History Grandparent Arthritis Mother Cancer Grandparent Cancer Social History Social History Smoking status: Never smoker Alcohol intake: current Alcohol use details: rarely Substance use: never Substance use type: marijuana Last use: Last night - sleep Lack of Transportation: No Lack of Food: Never True Current Housing: I Have Housing Concerned About Future Housing: No Difficulty Paying Gas/Electric Bills: No Difficulty Paying for Meds: No Currently Unemployed: No Education: Bachelor's Degree Difficulty w/ Childcare or Family Care: No Living arrangements: with family Occupation/Education: student Gender identity (if verbalized by the patient): Female Spiritual care concerns: No Anes - Eval Final PreProcedure Day of Procedure 03/16/25 14:45 Patient weight: obese Heart: regular rate and rhythm Lungs: clear to auscultation Neurological: alert and oriented ASA classification: III Emergent: no Anesthetic plan: proceed Anesthesia type and monitoring: regional epidural and standard monitoring Results Review: All pre-operative results and documents have been reviewed as part of the pre-operative evaluation. Informed Consent: The patient's anesthetic plan and its attendant risks and benefits were discussed with the patient/family/POA. Questions were solicited and answers provided to the satisfaction of the patient/family/POA.
[2025-03-16] MEDS: OXYTOCIN 30 UNITS/NS 500 ML 30 UNITS/500 ML BAG 125 UNITS IV CONT (15:55)
--- NOTE | 2025-03-16 17:08 | PM.OBPRVD ---
OB - Vaginal Delivery Note Procedure Delivery date: 03/16/25 Events: Other (Postdates) Induction method: Per Pitocin Protocol Delivery augmentation: Rupture of Membranes Delivery monitor: External FHT and External Uterine Route of delivery: Episiotomy description: None Laceration Description: Periurethral Delivery repair: vicryl Specimen: No Quantitative Blood Loss (ml): 150 Anesthesia type: Epidural Disposition: Floor Complications: No immediate complications Narrative: See H&P and notes for details on patient's admission and labor. She progressed to complete cervical dilation and at the appropriate time began pushing. With adequate expulsive efforts by the mother, the baby's head was delivered without difficulty. Nuchal cord was present x1 and was easily reduced.The baby's left shoulder was anterior and delivered under the pubic symphysis without difficulty. The posterior shoulder and the rest of the baby delivered without difficulty. The umbilical cord was doubly clamped and cut after 60 seconds of delayed cord clamping. Care of the infant was then assumed by the nursing staff. [place] Baby Date of : 03/16/25 Time of : 13:33 Gestational Age by Date: 41 gender: Male presentation: vertex position: Left Occiput Anterior Placenta delivery description: Expressed Cord Vessel Description: 3 Vessels, Nuchal Cord and Delayed Cord Clamping
[2025-03-17 04:09] VITALS: BP 103/66; PULSE 86; RESP 16; TEMP 36.5; O2SAT 96
[2025-03-17 04:48] LABS: Hematocrit 31.2 % (37.0-47.0); Hemoglobin 10.2 g/dL (12.0-15.0)
[2025-03-17 07:45] VITALS: BP 125/73; PULSE 92; RESP 16; TEMP 36.9; O2SAT 97
[2025-03-17] MEDS: RHO(D) IMMUNE GLOBULIN 300 MCG/2 ML SYRINGE IM (10:18)
--- NOTE | 2025-03-17 10:46 | P.PNOB_ITS ---
OB - PN: Subj Subjective Date/time seen: 03/17/25 10:46 Interval history: PPD#1 s/p Doing well, pain controlled Voiding without issue Ready for discharge home OB - PN: Obj Data Labs 03/17/25 04:14 Labs: Laboratory Results - last 24 hr 03/17/25 04:14 Hgb 10.2 L Hct 31.2 L Blood Type O Negative Antibody Screen Negative Screen Negative Baby's Blood Type O pos Baby's ZACHARIAH Negative Doses of RhIg Required 1 OB - PN A/P Assessment and Plan (1) (normal spontaneous vaginal delivery): Code(s): O80 - Encounter for full-term uncomplicated delivery Status: Acute Plan day: 1 Plan: routine care and discharge home Time Spent With Patient Time: Total time spent is greater than 50% in coordination of care (as documented) at patient's floor/unit and/or counseling patient: Review of Systems 2 Review of Systems: All systems reviewed & are unremarkable except as noted in HPI and below Exam 2 Const: General: comfortable and no acute distress O rientation/consciousness: patient oriented x3 Resp: Effort & Inspection: normal respiratory effort
--- NOTE | 2025-03-17 10:52 | PM.OBDSVD ---
DS: Admitting Diagnosis Discharge Date 03/17/25 Admitting Diagnosis elective induction of labor DS: Discharge Diagnosis Discharge Diagnosis (1) (normal spontaneous vaginal delivery): Code(s): O80 - Encounter for full-term uncomplicated delivery Status: Acute OB - DS: Summary OB Procedures : None OB Procedures Intrapartum: Spontaneous Vag Delivery OB Procedures: : None Peripartum Data Laceration Description: Periurethral Episiotomy description: None Time Spent with Patient Time attestation: Total time spent providing and/or coordinating discharge services: DS: Data Data Completed and Pending Labs on day of discharge: Labs from last 24 hours 03/17/25 04:14 Hgb 10.2 L Hct 31.2 L Blood Type O Negative Antibody Screen Negative Screen Negative Baby's Blood Type O pos Baby's ZACHARIAH Negative Doses of RhIg Required 1 Discharge Plan Discharge Attending physician on discharge: Garo Bauman Discharging Clinician: Garo Bauman Patient Disposition: Home Activity: may shower, may drive after 2 weeks, as tolerated and pelvic rest Diet: as tolerated Patient Instructions: Antibiotic Form Patient Language: Upper Sorbian Stand Alone Forms: General Discharge Information Follow-up/Referrals: Garo Bauman MD [Physician, [employer]] - 4 Weeks Discharge Medications: New ibuprofen 600 mg Tablet 600 mg PO Q6H PRN (Reason: Cramping) Qty: 30 0RF Continued Probiotic Gold Acidophilus 1 billion cell capsule 1,000 mmu cells PO DAILY Rx Instructions: administer with a meal tacrolimus 1 mg capsule 2 mg PO Q12H tacrolimus 0.5 mg capsule 0.5 mg/kg PO Q12H Rx Instructions: take 1 cap by mouth in addition to the 2 caps of 1mg to equal 2.5mg twice daily One Daily 28 mg iron- 800 mcg combo pack 1 pkg PO DAILY omega-3 fatty acids [Fish Oil Concentrate] 1,000 mg capsule 1,000 mg PO DAILY cetirizine [Zyrtec] 10 mg Tablet 10 mg PO DAILY cholecalciferol (vitamin D3) 50 mcg (2,000 unit) Tablet 50 mcg PO DAILY docusate sodium [Colace] 100 mg Capsule 100 mg PO DAILY Date of admission: 03/16/25 05:02 Primary Care Provider: Dimitri Almonte Admitting Provider: Garo Bauman Attending physician on admission: Garo Bauman Condition: Stable
--- NOTE | 2025-03-17 11:10 | PC.NURSE ---
Consulted with patient to assess needs related to . Discussed with mother her successes, concerns and any questions she has. We reviewed working with the , supporting breast, protecting her nipples with an optimal deep latch, good positioning, and good hand washing. Encouraged understanding the benefits of skin to skin, responding to feeding cues, frequencies of feeding 8-12 times in 24 hours (approximately 2-3 hours), duration of feedings, milk production, intake/output feeding sheet and signs of adequate intake encouraging swallowing at the breast. Reviewed positioning and alignment, supporting breast, off-centered (asymmetrical latch) and leading with the chin with big, open, wide gape. latched optimally to the [left] breast in [cradle] position. Education given to the mother of how to visualize the suckling (with good rocking jaw motion) swallows (dropping of the lower jaw) and how to listen for drinking at the breast (the ka sound). The was [able] to maintain latch without discomfort to mother. Nipple care reviewed with optimal latch, good positioning and using clean hands when touching her breast. Resources used to facilitate learning were used from the [visual handouts/ tool/mom and baby guide]. Mother voiced understanding of the education shared, to call for assistance if the does not latch or if there is discomfort with . Reported to the Primary RN.
[2025-03-17 12:03] VITALS: BP 116/75; PULSE 95; RESP 16; TEMP 36.5; O2SAT 97
--- NOTE | 2025-03-17 14:36 | WPDANLDPN2 ---
Anes-Prog Note L&D Date/Time: 03/17/25 14:36 Comfortable throughout: labor and delivery Neuraxial method: epidural Epidural/Spinal procedure site: clean & non-tender Neuro status: Neuro function grossly intact. Cardiovascular status: normal Respiratory status: normal Airway patency: baseline Mental status: baseline Post-Op hydration status: normal Vital Signs: Last Vital Signs Temp 36.5 C 03/17/25 12:03 Pulse 95 03/17/25 12:03 Resp 16 03/17/25 12:03 BP 116/75 03/17/25 12:03 Pulse Ox 97 03/17/25 12:03 O2 Del Method Room Air 03/17/25 09:00 Pain score (VAS): 1 I/O: Intake & Output 03/16/25 03/17/25 03/17/25 23:59 07:59 15:59 Intake Total 0 Balance 0 Post-procedural complaints: none Patient feedback: Patient satisfied with anesthetic care.
[2025-03-17 19:01] VITALS: BP 132/79; PULSE 95; RESP 16; TEMP 36.6; O2SAT 99
--- NOTE | 2025-03-18 06:30 | P.PNOB_ITS ---
OB - PN: Subj Subjective Date/time seen: 03/18/25 06:30 Interval history: PPD#2 s/p Doing well, pain controlled Voiding without issue Ready for discharge home OB - PN: Obj Data Labs 03/17/25 04:14 Labs: Laboratory Results - last 24 hr 03/17/25 04:14 Blood Type O Negative Antibody Screen Negative Screen Negative Baby's Blood Type O pos Baby's ZACHARIAH Negative Doses of RhIg Required 1 OB - PN A/P Plan day: 2 Plan: routine care and discharge home Time Spent With Patient Time: Total time spent is greater than 50% in coordination of care (as documented) at patient's floor/unit and/or counseling patient: Review of Systems 2 Review of Systems: All systems reviewed & are unremarkable except as noted in HPI and below Exam 2 Const: General: cooperative and healthy appearing Chest: Chest palpation & inspection: normal inspection of the chest Resp: Effort & Inspection: normal respiratory effort Skin: General skin exam: normal color Neuro: General: patient oriented x3
[2025-03-18 07:15] VITALS: BP 96/57; PULSE 84; RESP 16; TEMP 36.4; O2SAT 100
--- NOTE | 2025-03-18 10:33 | PC.NURSE ---
Consulted with mother concerning needs and she shared her ability to independently latch infant optimally without pain. Mother had also chosen to supplement after . Mother is feeding appropriately for growth of infant and understands stimulating infant to eat if needed. has had appropriate feedings in the last 24 hours meets the outcomes for weight, output, blood sugar and jaundice at this time. Reinforced understanding of milk production, transition of milk, signs of adequate intake, transition of stool, prevention/relief of engorgement, plugged ducts, mastitis, responsive watching for feeding cues, the different methods of stimulating to breastfeed 1-3 hours after the start of the last feeding, community resources, and when to call a provider using the resource of the feeding sheet along with the mom and baby guide. Mother voiced understanding of the information shared, is confident to continue effectively her infant at home, when to call for assistance, denies any additional assistance or education at this time. Declined [facility] referral. Reported to the Primary RN.
[2025-03-20 15:04] VITALS: BP 128/80; PULSE 99; RESP 20; TEMP 37; O2SAT 99
== END 2025-03-18 10:49 | disposition home or self-care (01) | DRG 806 ==
LOC: ANHLDR 05:04 → ANHOB2 17:31
PROVIDERS: Admitting Provider Obstetrics & Gynecology; PCP Family Medicine; Visit Provider Obstetrics & Gynecology
DX: O99.824 Streptococcus B carrier state complicating childbirth (principal); Z94.4 Liver transplant status; Z37.0 Single live birth; Z3A.41 41 weeks gestation of pregnancy; O71.82 Other specified trauma to perineum and vulva; O69.81X0 Labor and delivery complicated by cord around neck, without compression, not applicable or unspecified
CPT/HCPCS: 36415; 85014; 85018; 85025; 85461; 86593; 86850; 86900; 86901; 90384; A9270; J0290; J2590; J2790; J2795; J7120